=== PATIENT | female | born 1950 | race Caucasian/White ===

== ENCOUNTER 2020-03-28 09:40 | Outpatient (REF) | payer MEDICARE, BC, SELFPAY ==
--- NOTE | 2020-03-28 09:49 | MM_ITS ---
EXAMINATION: MM SCREENING DIGITAL MAMMOGRAPHY, BILATERAL CLINICAL INFORMATION: Screening. Asymptomatic. The lifetime risk of breast cancer based on the Tyrer-Cuzick Model is 5%. COMPARISON: Mammography: 03/23/2019, 01/27/2018 TECHNIQUE: Digital mammography is performed in craniocaudal and mediolateral oblique views along with computer-aided detection (CAD). FINDINGS: There are scattered areas of fibroglandular density (ACR BI-RADS breast composition Category b). There are no significant masses, abnormal calcifications, or other abnormalities. There are bilateral vascular calcifications anterior breasts and upper quadrants. The skin contours are smooth. No significant changes. IMPRESSION: No mammographic evidence of malignancy. ASSESSMENT: BI-RADS 2: Benign RECOMMENDATION: Routine annual mammography screening. This patient's information was entered into a reminder system with a target due date for their next mammogram.
== END 2020-03-28 09:41 | disposition home or self-care (01) ==
LOC: HO.MAMMO 09:40
PROVIDERS: PCP Internal Medicine Medical Oncology; Visit Provider Internal Medicine Medical Oncology
DX: Z12.31 Encounter for screening mammogram for malignant neoplasm of breast (principal)
CPT/HCPCS: 77063; 77067

== ENCOUNTER 2020-06-14 08:47 | Outpatient (REF) | payer MEDICARE, BC, SELFPAY ==
[2020-06-14 09:31] LABS: MANUAL DIFF FLAG NO
[2020-06-14 09:34] LABS: Basophils Absolute Auto 0.1 X10*3/uL (0.0-0.2); Eosinophils Absolute Auto 0.5 X10*3/uL (0.0-0.4); Eosinophils Percent Auto 5.3 % (0-4); Hematocrit 41.5 % (37-47); Hemoglobin 12.7 g/dl (12.0-16.0); Imm Gran Abs Auto 0.13 X10*3/uL (0.00-0.03); Imm Gran Pct Auto 1.4 % (0.0-0.4); Lymphocytes Absolute Auto 2.2 X10*3/uL (1.2-4.9); Mean Corpuscular HGB Conc 30.6 g/dl (31.0-35.0); Mean Corpuscular Hemoglobin 27.1 pg (27.0-33.0); Mean Corpuscular Volume 88.5 fL (80-98); Mean Platelet Volume 9.4 fL (9.4-12.3); Monocytes Absolute Auto 0.7 X10*3/uL (0.1-1.2); Monocytes Percent Auto 7.4 % (2-11); Neutrophils Absolute Auto 5.7 X10*3/uL (2.0-8.3); Neutrophils Percent Auto 60.9 % (45-73); Platelet Count 277 X10*3/uL (160-400); Red Blood Count 4.69 X10*6/uL (4.20-5.50); White Blood Count 9.3 X10*3/uL (4.8-10.8)
[2020-06-14 10:04] LABS: Alanine Aminotransferase 17 U/L (0-31); Albumin Level 4.2 g/dL (3.5-5.0); Alkaline Phosphatase 80 U/L (39-117); Anion Gap 13 (12-20); Aspartate Amino Transferase 20 U/L (5-31); Bilirubin Total 0.4 mg/dL (0.0-1.0); Blood Urea Nitrogen 33 mg/dL (9-16); Calcium 9.3 mg/dL (8.4-10.2); Carbon Dioxide 28 mmol/L (22-29); Chloride 104 mmol/L (96-108); Cholesterol 189 mg/dL; Estimated Glomerular Filt Rate 49; Glucose Fasting 143 mg/dL (60-99); HDL Cholesterol 64 mg/dL; LDL Cholesterol Calculated 104 mg/dl; Potassium 4.7 mmol/l (3.3-5.1); Sodium 140 mmol/L (135-145); Total Protein 7.1 g/dL (6.5-8.0); Triglycerides 109 mg/dL
[2020-06-14 10:24] LABS: Vitamin D 25-OH Total 29.5 ng/mL (>30)
== END 2020-06-14 08:48 | disposition home or self-care (01) ==
LOC: HO.LAB 08:47
PROVIDERS: PCP Internal Medicine Medical Oncology; Visit Provider Internal Medicine Medical Oncology
DX: E11.9 Type 2 diabetes mellitus without complications (principal); E78.2 Mixed hyperlipidemia; E66.9 Obesity, unspecified
CPT/HCPCS: 36415; 80053; 80061; 82306; 85025

== ENCOUNTER 2020-10-12 09:12 | Outpatient (REF) | payer MEDICARE, BC, SELFPAY ==
[2020-10-12 10:21] LABS: MANUAL DIFF FLAG NO
[2020-10-12 10:30] LABS: Basophils Absolute Auto 0.1 X10*3/uL (0.0-0.2); Eosinophils Absolute Auto 0.3 X10*3/uL (0.0-0.4); Eosinophils Percent Auto 2.9 % (0-4); Hematocrit 40.7 % (37-47); Hemoglobin 12.7 g/dl (12.0-16.0); Imm Gran Abs Auto 0.12 X10*3/uL (0.00-0.03); Imm Gran Pct Auto 1.3 % (0.0-0.4); Lymphocytes Percent Auto 22.5 % (20-40); Mean Corpuscular HGB Conc 31.2 g/dl (31.0-35.0); Mean Corpuscular Hemoglobin 27.3 pg (27.0-33.0); Mean Corpuscular Volume 87.3 fL (80-98); Mean Platelet Volume 9.4 fL (9.4-12.3); Monocytes Absolute Auto 0.6 X10*3/uL (0.1-1.2); Neutrophils Absolute Auto 5.9 X10*3/uL (2.0-8.3); Neutrophils Percent Auto 65.3 % (45-73); Platelet Count 280 X10*3/uL (160-400); Red Blood Count 4.66 X10*6/uL (4.20-5.50)
[2020-10-12 10:56] LABS: Alanine Aminotransferase 20 U/L (0-31); Albumin Level 4.2 g/dL (3.5-5.0); Alkaline Phosphatase 81 U/L (39-117); Anion Gap 15 (12-20); Aspartate Amino Transferase 19 U/L (5-31); Bilirubin Total 0.5 mg/dL (0.0-1.0); Blood Urea Nitrogen 32 mg/dL (9-16); Calcium 9.7 mg/dL (8.4-10.2); Carbon Dioxide 28 mmol/L (22-29); Chloride 103 mmol/L (96-108); Cholesterol 180 mg/dL; Estimated Glomerular Filt Rate 46; Glucose Fasting 163 mg/dL (60-99); HDL Cholesterol 61 mg/dL; LDL Cholesterol Calculated 90 mg/dl; Potassium 4.8 mmol/L (3.3-5.1); Sodium 141 mmol/L (135-145); Triglycerides 145 mg/dL
[2020-10-12 10:59] LABS: Estimated Average Glucose 163 mg/dL; Hemoglobin A1c % 7.3 %
[2020-10-12 13:44] LABS: Creatinine Urine 64.74 mg/dL; Microalbum/Creatinine Ratio Ur 44.7 ug/mg cr
== END 2020-10-12 09:13 | disposition home or self-care (01) ==
LOC: HO.LAB 09:12
PROVIDERS: PCP Internal Medicine Medical Oncology; Visit Provider Internal Medicine Medical Oncology
DX: E11.9 Type 2 diabetes mellitus without complications (principal); I10 Essential (primary) hypertension; E78.2 Mixed hyperlipidemia
CPT/HCPCS: 36415; 80053; 80061; 82043; 83036; 85025

== ENCOUNTER → 2020-11-16 12:26 | Outpatient (BNVA) | payer MEDICARE, BC, SELFPAY | PROVIDERS: PCP Internal Medicine Medical Oncology; Visit Provider Obstetrics & Gynecology ==

== ENCOUNTER 2021-01-30 08:32 | Outpatient (REF) | payer MEDICARE, BC, SELFPAY ==
[2021-01-30 09:44] LABS: MANUAL DIFF FLAG NO
[2021-01-30 09:55] LABS: Basophils Absolute Auto 0.1 X10*3/uL (0.0-0.2); Basophils Percent Auto 0.8 % (0-2); Eosinophils Absolute Auto 0.2 X10*3/uL (0.0-0.4); Eosinophils Percent Auto 2.7 % (0-4); Hematocrit 39.5 % (37-47); Hemoglobin 12.3 g/dl (12.0-16.0); Imm Gran Abs Auto 0.13 X10*3/uL (0.00-0.03); Imm Gran Pct Auto 1.5 % (0.0-0.4); Lymphocytes Absolute Auto 2.4 X10*3/uL (1.2-4.9); Lymphocytes Percent Auto 26.8 % (20-40); Mean Corpuscular HGB Conc 31.1 g/dl (31.0-35.0); Mean Corpuscular Hemoglobin 27.7 pg (27.0-33.0); Mean Platelet Volume 9.7 fL (9.4-12.3); Monocytes Absolute Auto 0.8 X10*3/uL (0.1-1.2); Monocytes Percent Auto 8.8 % (2-11); Neutrophils Absolute Auto 5.3 X10*3/uL (2.0-8.3); Neutrophils Percent Auto 59.4 % (45-73); Platelet Count 287 X10*3/uL (160-400); Red Blood Count 4.44 X10*6/uL (4.20-5.50); Red Cell Distribution Width 14.5 % (11.0-16.0); White Blood Count 8.8 X10*3/uL (4.8-10.8)
[2021-01-30 10:03] LABS: Estimated Average Glucose 166 mg/dL; Hemoglobin A1c % 7.4 %
[2021-01-30 10:25] LABS: Alanine Aminotransferase 14 U/L (0-31); Albumin Level 4.2 g/dL (3.5-5.0); Alkaline Phosphatase 67 U/L (39-117); Anion Gap 15 (12-20); Aspartate Amino Transferase 15 U/L (5-31); Bilirubin Total 0.2 mg/dL (0.0-1.0); Blood Urea Nitrogen 42 mg/dL (9-16); Calcium 10.1 mg/dL (8.4-10.2); Carbon Dioxide 23 mmol/L (22-29); Chloride 107 mmol/L (96-108); Cholesterol 162 mg/dL; Estimated Glomerular Filt Rate 31; Glucose Random 154 mg/dL (60-115); HDL Cholesterol 59 mg/dL; LDL Cholesterol Calculated 75 mg/dl; Sodium 139 mmol/L (135-145); Triglycerides 143 mg/dL
== END 2021-01-30 08:33 | disposition home or self-care (01) ==
LOC: HO.LAB 08:32
PROVIDERS: PCP Internal Medicine Medical Oncology; Visit Provider Internal Medicine Medical Oncology
DX: I10 Essential (primary) hypertension (principal); E66.9 Obesity, unspecified; E78.2 Mixed hyperlipidemia; E11.9 Type 2 diabetes mellitus without complications
CPT/HCPCS: 36415; 80053; 80061; 83036; 85025

== ENCOUNTER 2021-02-03 08:49 | Outpatient (REF) | payer MEDICARE, BC, SELFPAY ==
[2021-02-03 10:44] LABS: Anion Gap 17 (12-20); Carbon Dioxide 21 mmol/L (22-29); Chloride 105 mmol/L (96-108); Potassium 5.3 mmol/L (3.3-5.1); Sodium 138 mmol/L (135-145)
[2021-02-03 12:11] LABS: SARS COV2 IgG Negative (Negative)
== END 2021-02-03 08:50 | disposition home or self-care (01) ==
LOC: HO.LAB 08:49
PROVIDERS: PCP Internal Medicine Medical Oncology; Visit Provider Internal Medicine Medical Oncology
DX: U07.1 COVID-19 (principal); E87.5 Hyperkalemia
CPT/HCPCS: 36415; 80051; 86769

== ENCOUNTER 2021-06-05 09:58 | Outpatient (REF) | payer MEDICARE, BC, SELFPAY ==
[2021-06-05 10:14] LABS: MANUAL DIFF FLAG NO
[2021-06-05 10:37] LABS: Basophils Absolute Auto 0.1 X10*3/uL (0.0-0.2); Basophils Percent Auto 0.7 % (0-2); Eosinophils Absolute Auto 0.2 X10*3/uL (0.0-0.4); Eosinophils Percent Auto 2.2 % (0-4); Hematocrit 42.4 % (37.0-47.0); Hemoglobin 13.1 g/dl (12.0-16.0); Imm Gran Pct Auto 1.1 % (0.0-0.4); Lymphocytes Absolute Auto 2.3 X10*3/uL (1.2-4.9); Lymphocytes Percent Auto 24.6 % (20-40); Mean Corpuscular HGB Conc 30.9 g/dl (31.0-35.0); Mean Corpuscular Hemoglobin 26.8 pg (27.0-33.0); Mean Corpuscular Volume 86.9 fL (80.0-98.0); Mean Platelet Volume 9.6 fL (9.4-12.3); Monocytes Absolute Auto 0.6 X10*3/uL (0.1-1.2); Monocytes Percent Auto 6.3 % (2-11); Neutrophils Absolute Auto 6.1 x10*3/uL (2.0-8.3); Neutrophils Percent Auto 65.1 % (45-73); Platelet Count 306 X10*3/uL (160-400); Red Blood Count 4.88 X10*6/uL (4.20-5.50); Red Cell Distribution Width 14.5 % (11.0-16.0); White Blood Count 9.4 X10*3/uL (4.8-10.8)
[2021-06-05 10:45] LABS: Estimated Average Glucose 220 mg/dL; Hemoglobin A1c % 9.3 %
[2021-06-05 11:11] LABS: Alanine Aminotransferase 18 U/L (0-31); Albumin Level 4.2 g/dL (3.5-5.0); Alkaline Phosphatase 88 U/L (39-117); Anion Gap 14 (12-20); Aspartate Amino Transferase 17 U/L (5-31); Bilirubin Total 0.3 mg/dL (0.0-1.0); Blood Urea Nitrogen 39 mg/dL (9-16); Carbon Dioxide 27 mmol/L (22-29); Chloride 104 mmol/L (96-108); Cholesterol 200 mg/dL; Estimated Glomerular Filt Rate 41; Glucose Fasting 191 mg/dL (60-99); HDL Cholesterol 53 mg/dL; LDL Cholesterol Calculated 108 mg/dl; Potassium 4.7 mmol/L (3.3-5.1); Sodium 140 mmol/L (135-145); Total Protein 7.1 g/dL (6.5-8.0); Triglycerides 198 mg/dL
[2021-06-05 13:31] LABS: Creatinine Urine 104.71 mg/dL; Microalbum/Creatinine Ratio Ur 32.4 ug/mg cr
== END 2021-06-05 09:59 | disposition home or self-care (01) ==
LOC: HO.LAB 09:58
PROVIDERS: PCP Internal Medicine Medical Oncology; Visit Provider Internal Medicine Medical Oncology
DX: E11.9 Type 2 diabetes mellitus without complications (principal); E78.2 Mixed hyperlipidemia; E66.9 Obesity, unspecified
CPT/HCPCS: 36415; 80053; 80061; 82043; 83036; 85025

== ENCOUNTER 2021-09-04 09:28 | Outpatient (REF) | payer MEDICARE, BC, SELFPAY ==
[2021-09-04 10:06] LABS: MANUAL DIFF FLAG NO
[2021-09-04 10:47] LABS: Basophils Absolute Auto 0.1 X10*3/uL (0.0-0.2); Basophils Percent Auto 1.1 % (0-2); Eosinophils Absolute Auto 0.2 X10*3/uL (0.0-0.4); Hematocrit 41.2 % (37.0-47.0); Hemoglobin 12.4 g/dl (12.0-16.0); Imm Gran Abs Auto 0.12 X10*3/uL (0.00-0.03); Imm Gran Pct Auto 1.2 % (0.0-0.4); Lymphocytes Absolute Auto 2.2 X10*3/uL (1.2-4.9); Lymphocytes Percent Auto 22.3 % (20-40); Mean Corpuscular HGB Conc 30.1 g/dl (31.0-35.0); Mean Corpuscular Hemoglobin 26.8 pg (27.0-33.0); Mean Corpuscular Volume 89.2 fL (80.0-98.0); Mean Platelet Volume 9.7 fL (9.4-12.3); Monocytes Absolute Auto 0.7 X10*3/uL (0.1-1.2); Monocytes Percent Auto 6.9 % (2-11); Neutrophils Absolute Auto 6.5 x10*3/uL (2.0-8.3); Neutrophils Percent Auto 66.5 % (45-73); Platelet Count 303 X10*3/uL (160-400); Red Blood Count 4.62 X10*6/uL (4.20-5.50); White Blood Count 9.8 X10*3/uL (4.8-10.8)
[2021-09-04 10:54] LABS: Creatinine Urine 104.96 mg/dL
[2021-09-04 10:56] LABS: Alanine Aminotransferase 16 U/L (0-31); Albumin Level 4.1 g/dL (3.5-5.0); Alkaline Phosphatase 86 U/L (39-117); Anion Gap 17 (12-20); Aspartate Amino Transferase 18 U/L (5-31); Bilirubin Total 0.2 mg/dL (0.0-1.0); Blood Urea Nitrogen 33 mg/dL (9-16); Carbon Dioxide 25 mmol/L (22-29); Chloride 106 mmol/L (96-108); Cholesterol 179 mg/dL; Estimated Glomerular Filt Rate 38; Glucose Fasting 186 mg/dL (60-99); HDL Cholesterol 52 mg/dL; LDL Cholesterol Calculated 88 mg/dl; Potassium 5.6 mmol/L (3.3-5.1); Sodium 142 mmol/L (135-145); Total Protein 7.3 g/dL (6.5-8.0); Triglycerides 197 mg/dL
[2021-09-04 10:58] LABS: Estimated Average Glucose 177 mg/dL; Hemoglobin A1c % 7.8 %
== END 2021-09-04 09:29 | disposition home or self-care (01) ==
LOC: HO.LAB 09:28
PROVIDERS: PCP Internal Medicine Medical Oncology; Visit Provider Internal Medicine Medical Oncology
DX: E11.9 Type 2 diabetes mellitus without complications (principal); I10 Essential (primary) hypertension; E78.2 Mixed hyperlipidemia; E66.9 Obesity, unspecified
CPT/HCPCS: 36415; 80053; 80061; 82043; 83036; 85025

== ENCOUNTER 2021-12-27 09:20 | Outpatient (REF) | payer MEDICARE, BC, SELFPAY | END 2021-12-27 09:21 | disposition home or self-care (01) | LOC: HO.LAB 09:20 | PROVIDERS: PCP Internal Medicine Medical Oncology; Visit Provider Obstetrics & Gynecology | DX: N84.1 Polyp of cervix uteri (principal); Z78.0 Asymptomatic menopausal state | CPT/HCPCS: 57500; 88305 ==

== ENCOUNTER 2022-01-01 08:03 | Outpatient (REF) | payer MEDICARE, BC, SELFPAY ==
[2022-01-01 08:39] LABS: MANUAL DIFF FLAG NO
[2022-01-01 09:05] LABS: Basophils Absolute Auto 0.1 X10*3/uL (0.0-0.2); Basophils Percent Auto 1.1 % (0-2); Eosinophils Absolute Auto 0.2 X10*3/uL (0.0-0.4); Hematocrit 40.1 % (37.0-47.0); Hemoglobin 12.4 g/dl (12.0-16.0); Imm Gran Abs Auto 0.09 X10*3/uL (0.00-0.03); Imm Gran Pct Auto 1.1 % (0.0-0.4); Lymphocytes Percent Auto 24.8 % (20-40); Mean Corpuscular HGB Conc 30.9 g/dl (31.0-35.0); Mean Corpuscular Hemoglobin 27.5 pg (27.0-33.0); Mean Corpuscular Volume 88.9 fL (80.0-98.0); Mean Platelet Volume 9.7 fL (9.4-12.3); Monocytes Absolute Auto 0.6 X10*3/uL (0.1-1.2); Monocytes Percent Auto 7.5 % (2-11); Neutrophils Percent Auto 62.5 % (45-73); Platelet Count 294 X10*3/uL (160-400); Red Blood Count 4.51 X10*6/uL (4.20-5.50)
[2022-01-01 09:45] LABS: Alanine Aminotransferase 16 U/L (0-31); Albumin Level 4.5 g/dL (3.5-5.0); Alkaline Phosphatase 68 U/L (39-117); Anion Gap 12 (12-20); Aspartate Amino Transferase 16 U/L (5-31); Bilirubin Total 0.3 mg/dL (0.0-1.0); Blood Urea Nitrogen 51 mg/dL (9-16); Calcium 9.6 mg/dL (8.4-10.2); Carbon Dioxide 24 mmol/L (22-29); Chloride 108 mmol/L (96-108); Cholesterol 174 mg/dL; Estimated Glomerular Filt Rate 33; Glucose Fasting 154 mg/dL (60-99); HDL Cholesterol 50 mg/dL; LDL Cholesterol Calculated 91 mg/dl; Potassium 5.4 mmol/L (3.3-5.1); Sodium 139 mmol/L (135-145); Total Protein 7.2 g/dL (6.5-8.0); Triglycerides 168 mg/dL
[2022-01-01 10:01] LABS: Creatinine Urine 56.71 mg/dL
[2022-01-01 10:54] LABS: Estimated Average Glucose 160 mg/dL; Hemoglobin A1c % 7.2 %
== END 2022-01-01 08:04 | disposition home or self-care (01) ==
LOC: HO.LAB 08:03
PROVIDERS: PCP Internal Medicine Medical Oncology; Visit Provider Internal Medicine Medical Oncology
DX: E11.9 Type 2 diabetes mellitus without complications (principal); E78.2 Mixed hyperlipidemia; I10 Essential (primary) hypertension
CPT/HCPCS: 36415; 80053; 80061; 82043; 83036; 85025

== ENCOUNTER 2022-01-11 10:14 | Outpatient (REF) | payer MEDICARE, BC, SELFPAY ==
[2022-01-11 11:42] LABS: Anion Gap 14 (12-20); Blood Urea Nitrogen 46 mg/dL (9-16); Carbon Dioxide 22 mmol/L (22-29); Chloride 108 mmol/L (96-108); Potassium 6.2 mmol/L (3.3-5.1); Sodium 138 mmol/L (135-145)
== END 2022-01-11 10:15 | disposition home or self-care (01) ==
LOC: HO.LAB 10:14
PROVIDERS: PCP Internal Medicine Medical Oncology; Visit Provider Internal Medicine Medical Oncology
DX: E11.9 Type 2 diabetes mellitus without complications (principal); E78.2 Mixed hyperlipidemia; E66.9 Obesity, unspecified
CPT/HCPCS: 36415; 80051; 84520

== ENCOUNTER 2022-01-15 11:26 | Outpatient (REF) | payer MEDICARE, BC, SELFPAY ==
[2022-01-15 12:28] LABS: Anion Gap 15 (12-20); Carbon Dioxide 25 mmol/L (22-29); Chloride 104 mmol/L (96-108); Potassium 5.1 mmol/L (3.3-5.1); Sodium 139 mmol/L (135-145)
== END 2022-01-15 11:27 | disposition home or self-care (01) ==
LOC: HO.LAB 11:26
PROVIDERS: PCP Internal Medicine Medical Oncology; Visit Provider Internal Medicine Medical Oncology
DX: E87.5 Hyperkalemia (principal)
CPT/HCPCS: 36415; 80051

== ENCOUNTER 2022-01-31 10:14 | Outpatient (REF) | payer MEDICARE, BC, SELFPAY ==
--- NOTE | ~2022-01-31 | MM_ITS ---
EXAMINATION: BONE DENSITOMETRY CLINICAL INDICATION: Asymptomatic menopausal state. COMPARISON: Previous BD dated 08/27/2019 and baseline BD dated 11/09/2008. TECHNIQUE: Using a [employer]ight DXA System (software version: 13.1) manufactured by [employer], dual-energy x-ray absorptiometry was performed of the lumbar spine and left hip. The images are of good technical quality. Summary results are attached. FINDINGS: AP SPINE L1-L4: There are multilevel degenerative changes lumbar spine which may cause overestimation of the lumbar bone mineral density. Current: BMD 1.511 g/cm2, Z-score 3.6, T-score 2.8, normal, 7.8% increase from previous, 10.1% increase from baseline (<5% change is not significant). Prior: BMD 1.402 g/cm2. Baseline: BMD 1.372 g/cm2. LEFT FEMUR, NECK: Current: BMD 0.796 g/cm2, Z-score -0.5, T-score -1.7, osteopenia. Prior: BMD 0.800 g/cm2. Baseline: BMD 0.913 g/cm2. LEFT FEMUR, TOTAL: Current: BMD 0.911 g/cm2, Z-score 0.2, T-score -0.8, normal, 4.0% increase from previous, 12.2% decrease from baseline (<5% change is not significant). Prior: BMD 0.876 g/cm2. Baseline: BMD 1.038 g/cm2. IDENTIFIED RISK FACTORS: Menopause, family history (parental hip fracture), height loss, history of fracture (adult). HISTORY OF FRACTURE: Other. MEDICATIONS: Calcium supplements or multivitamin, vitamin D, bisphosphonate. MM/XR DEXA axial skeleton IMPRESSION: 1. DIAGNOSIS: Osteopenia based on the lowest T-score value of -1.7 in the femoral neck applying World Health Organization criteria. 2. 10-YEAR FRACTURE RISK PREDICTION, FRAX: Major osteoporotic fracture (clinical spine, forearm, hip or shoulder) 25.4%. Hip fracture 10.3%. 3. Treatment Recommendations: NOF guidelines recommend consideration for treatment in postmenopausal women and men age 50 and older presenting with the following: -A hip or vertebral (clinical or morphometric) fracture. -T-score less than or equal to -2.5 at the femoral neck or spine after appropriate evaluation to exclude secondary causes. -Low bone mass at the hip or spine and a 10-year fracture probability by FRAX of greater than or equal to 3% for hip fracture or greater than or equal to 20% for major osteoporotic fracture based on the [place] adapted WHO algorithm. 4. Other Recommendations: All treatment decisions require clinical judgment and consideration of individual patient factors, including patient preferences, comorbidities, previous drug use, risk factors not captured in the FRAX model (e.g. frailty, falls, vitamin D deficiency, increased bone turnover, interval significant decline in bone density) and possible under or overestimation of fracture risk by FRAX. Additional medical evaluation for secondary cause of low bone mineral density may be appropriate. FUTURE SCAN RECOMMENDATION: People with diagnosed cases of osteoporosis or at high risk for fracture should have regular bone mineral density tests. For patients eligible for Medicare, routine testing is allowed once every 2 years. The testing frequency can be increased to one year for patients who have rapidly progressing disease, those who are receiving or discontinuing medical therapy to restore bone mass, or have additional risk factors.
--- NOTE | ~2022-01-31 | MM_ITS ---
EXAMINATION: MM SCREENING DIGITAL BREAST TOMOSYNTHESIS, BILATERAL CLINICAL INFORMATION: Screening. Asymptomatic. The lifetime risk of breast cancer based on the Tyrer-Cuzick Model is 5%. COMPARISON: Mammography: 03/28/2020, 03/23/2019, 01/27/2018 TECHNIQUE: Digital breast tomosynthesis is performed in both the craniocaudal and mediolateral oblique views along with computer-aided detection (CAD). Synthesized 2D images are generated from the tomosynthesis. FINDINGS: There are scattered areas of fibroglandular density (ACR BI-RADS breast composition Category b). There are no significant masses, abnormal calcifications, or other abnormalities. Parenchymal pattern is similar to prior studies. The axilla and skin contours are unremarkable. MM/MM tomosynthesis screening BI IMPRESSION: No mammographic evidence of malignancy. ASSESSMENT: BI-RADS 1: Negative RECOMMENDATION: Routine annual mammography screening. This patient's information was entered into a reminder system with a target due date for their next mammogram.
== END 2022-01-31 10:15 | disposition home or self-care (01) ==
LOC: HO.MAMMO 10:14
PROVIDERS: PCP Internal Medicine Medical Oncology; Visit Provider Obstetrics & Gynecology
DX: Z12.31 Encounter for screening mammogram for malignant neoplasm of breast (principal); Z13.820 Encounter for screening for osteoporosis; Z78.0 Asymptomatic menopausal state
CPT/HCPCS: 77063; 77067; 77080

== ENCOUNTER → 2022-02-14 11:12 | Outpatient (BNVA) | payer MEDICARE, BC, SELFPAY | PROVIDERS: PCP Internal Medicine Medical Oncology; Visit Provider Obstetrics & Gynecology | DX: M81.0 Age-related osteoporosis without current pathological fracture (principal) | CPT/HCPCS: 99212 ==

== ENCOUNTER 2022-04-05 11:40 | Outpatient (REF) | payer MEDICARE, BC, SELFPAY ==
[2022-04-05 12:08] LABS: MANUAL DIFF FLAG NO
[2022-04-05 12:49] LABS: Basophils Absolute Auto 0.1 X10*3/uL (0.0-0.2); Basophils Percent Auto 0.8 % (0-2); Eosinophils Absolute Auto 0.2 X10*3/uL (0.0-0.4); Eosinophils Percent Auto 1.5 % (0-4); Hematocrit 39.7 % (37.0-47.0); Hemoglobin 12.4 g/dl (12.0-16.0); Imm Gran Abs Auto 0.11 X10*3/uL (0.00-0.03); Lymphocytes Absolute Auto 2.3 X10*3/uL (1.2-4.9); Lymphocytes Percent Auto 20.8 % (20-40); Mean Corpuscular HGB Conc 31.2 g/dl (31.0-35.0); Mean Corpuscular Hemoglobin 27.4 pg (27.0-33.0); Mean Corpuscular Volume 87.8 fL (80.0-98.0); Mean Platelet Volume 9.7 fL (9.4-12.3); Monocytes Absolute Auto 0.7 X10*3/uL (0.1-1.2); Monocytes Percent Auto 5.9 % (2-11); Neutrophils Absolute Auto 7.7 x10*3/uL (2.0-8.3); Platelet Count 300 X10*3/uL (160-400); Red Blood Count 4.52 X10*6/uL (4.20-5.50); Red Cell Distribution Width 13.2 % (11.0-16.0)
[2022-04-05 13:30] LABS: Alanine Aminotransferase 17 U/L (0-31); Albumin Level 4.5 g/dL (3.5-5.0); Alkaline Phosphatase 79 U/L (39-117); Anion Gap 21 (12-20); Aspartate Amino Transferase 22 U/L (5-31); Bilirubin Total 0.4 mg/dL (0.0-1.0); Blood Urea Nitrogen 32 mg/dL (9-16); Calcium 9.9 mg/dL (8.4-10.2); Carbon Dioxide 24 mmol/L (22-29); Chloride 101 mmol/L (96-108); Cholesterol 186 mg/dL; Estimated Glomerular Filt Rate 37; Glucose Fasting 143 mg/dL (60-99); HDL Cholesterol 63 mg/dL; LDL Cholesterol Calculated 98 mg/dl; Sodium 141 mmol/L (135-145); Total Protein 7.3 g/dL (6.5-8.0); Triglycerides 127 mg/dL
== END 2022-04-05 11:41 | disposition home or self-care (01) ==
LOC: HO.LAB 11:40
PROVIDERS: PCP Internal Medicine Medical Oncology; Visit Provider Internal Medicine Medical Oncology
DX: E11.9 Type 2 diabetes mellitus without complications (principal); E78.2 Mixed hyperlipidemia; E66.9 Obesity, unspecified
CPT/HCPCS: 36415; 80053; 80061; 85025

== ENCOUNTER 2022-04-13 09:11 | Outpatient (REF) | payer MEDICARE, BC, SELFPAY ==
[2022-04-13 10:13] LABS: Estimated Average Glucose 169 mg/dL; Hemoglobin A1c % 7.5 %
[2022-04-13 10:15] LABS: Creatinine Urine 78.45 mg/dL; Microalbum/Creatinine Ratio Ur 57.3 ug/mg cr
[2022-04-13 10:23] LABS: Alanine Aminotransferase 18 U/L (0-31); Albumin Level 4.4 g/dL (3.5-5.0); Alkaline Phosphatase 84 U/L (39-117); Anion Gap 17 (12-20); Aspartate Amino Transferase 22 U/L (5-31); Bilirubin Total 0.5 mg/dL (0.0-1.0); Blood Urea Nitrogen 32 mg/dL (9-16); Calcium 10.5 mg/dL (8.4-10.2); Carbon Dioxide 28 mmol/L (22-29); Chloride 102 mmol/L (96-108); Cholesterol 202 mg/dL; Estimated Glomerular Filt Rate 41; Glucose Fasting 171 mg/dL (60-99); HDL Cholesterol 58 mg/dL; LDL Cholesterol Calculated 103 mg/dl; Sodium 142 mmol/L (135-145); Total Protein 7.5 g/dL (6.5-8.0); Triglycerides 205 mg/dL
== END 2022-04-13 09:12 | disposition home or self-care (01) ==
LOC: HO.LAB 09:11
PROVIDERS: PCP Internal Medicine Medical Oncology; Visit Provider Internal Medicine Medical Oncology
DX: E11.9 Type 2 diabetes mellitus without complications (principal); I10 Essential (primary) hypertension; E78.2 Mixed hyperlipidemia; J45.909 Unspecified asthma, uncomplicated
CPT/HCPCS: 36415; 80053; 80061; 82043; 83036

== ENCOUNTER 2022-08-08 09:04 | Outpatient (REF) | payer MEDICARE, BC, SELFPAY ==
[2022-08-08 09:22] LABS: MANUAL DIFF FLAG NO
[2022-08-08 09:35] LABS: Basophils Absolute Auto 0.1 X10*3/uL (0.0-0.2); Basophils Percent Auto 1.2 % (0-2); Eosinophils Absolute Auto 0.3 X10*3/uL (0.0-0.4); Eosinophils Percent Auto 2.7 % (0-4); Hematocrit 41.1 % (37.0-47.0); Hemoglobin 12.8 g/dl (12.0-16.0); Imm Gran Abs Auto 0.14 X10*3/uL (0.00-0.03); Imm Gran Pct Auto 1.5 % (0.0-0.4); Lymphocytes Absolute Auto 2.5 X10*3/uL (1.2-4.9); Lymphocytes Percent Auto 26.1 % (20-40); Mean Corpuscular HGB Conc 31.1 g/dl (31.0-35.0); Mean Corpuscular Hemoglobin 27.2 pg (27.0-33.0); Mean Corpuscular Volume 87.4 fL (80.0-98.0); Mean Platelet Volume 9.5 fL (9.4-12.3); Monocytes Absolute Auto 0.7 X10*3/uL (0.1-1.2); Monocytes Percent Auto 6.7 % (2-11); Neutrophils Percent Auto 61.8 % (45-73); Platelet Count 325 X10*3/uL (160-400); Red Cell Distribution Width 13.8 % (11.0-16.0); White Blood Count 9.6 X10*3/uL (4.8-10.8)
[2022-08-08 09:40] LABS: Estimated Average Glucose 206 mg/dL; Hemoglobin A1c % 8.8 %
[2022-08-08 10:06] LABS: Alanine Aminotransferase 21 U/L (0-31); Albumin Level 4.1 g/dL (3.5-5.0); Anion Gap 15 (12-20); Aspartate Amino Transferase 22 U/L (5-31); Bilirubin Total 0.4 mg/dL (0.0-1.0); Blood Urea Nitrogen 30 mg/dL (9-16); Calcium 9.4 mg/dL (8.4-10.2); Carbon Dioxide 28 mmol/L (22-29); Chloride 104 mmol/L (96-108); Estimated Glomerular Filt Rate 47; Glucose Fasting 192 mg/dL (60-99); Potassium 4.8 mmol/L (3.3-5.1); Sodium 142 mmol/L (135-145); Total Protein 6.8 g/dL (6.5-8.0); Triglycerides 159 mg/dL
[2022-08-08 10:07] LABS: Alkaline Phosphatase 93 U/L (39-117); Cholesterol 196 mg/dL; HDL Cholesterol 58 mg/dL; LDL Cholesterol Calculated 107 mg/dl
[2022-08-08 10:35] LABS: Creatinine Urine 94.33 mg/dL; Microalbum/Creatinine Ratio Ur 63.6 ug/mg cr
== END 2022-08-08 09:05 | disposition home or self-care (01) ==
LOC: HO.LAB 09:04
PROVIDERS: PCP Internal Medicine Medical Oncology; Visit Provider Internal Medicine Medical Oncology
DX: E11.9 Type 2 diabetes mellitus without complications (principal); I10 Essential (primary) hypertension; E78.2 Mixed hyperlipidemia; J45.909 Unspecified asthma, uncomplicated
CPT/HCPCS: 36415; 80053; 80061; 82043; 83036; 85025

== ENCOUNTER 2022-12-12 08:56 | Outpatient (REF) | payer MEDICARE, BC, SELFPAY ==
[2022-12-12 09:11] LABS: MANUAL DIFF FLAG NO
[2022-12-12 10:10] LABS: Basophils Absolute Auto 0.1 X10*3/uL (0.0-0.2); Basophils Percent Auto 1.1 % (0-2); Eosinophils Absolute Auto 0.3 X10*3/uL (0.0-0.4); Eosinophils Percent Auto 3.4 % (0-4); Hematocrit 43.8 % (37.0-47.0); Hemoglobin 13.7 g/dl (12.0-16.0); Imm Gran Abs Auto 0.11 X10*3/uL (0.00-0.03); Imm Gran Pct Auto 1.3 % (0.0-0.4); Lymphocytes Absolute Auto 2.1 X10*3/uL (1.2-4.9); Lymphocytes Percent Auto 26.3 % (20-40); Mean Corpuscular HGB Conc 31.3 g/dl (31.0-35.0); Mean Corpuscular Hemoglobin 27.3 pg (27.0-33.0); Mean Corpuscular Volume 87.4 fL (80.0-98.0); Mean Platelet Volume 9.5 fL (9.4-12.3); Monocytes Absolute Auto 0.6 X10*3/uL (0.1-1.2); Monocytes Percent Auto 7.5 % (2-11); Neutrophils Absolute Auto 4.9 x10*3/uL (2.0-8.3); Neutrophils Percent Auto 60.4 % (45-73); Platelet Count 298 X10*3/uL (160-400); Red Blood Count 5.01 X10*6/uL (4.20-5.50); White Blood Count 8.2 X10*3/uL (4.8-10.8)
[2022-12-12 11:38] LABS: Alanine Aminotransferase 19 U/L (0-31); Albumin Level 4.2 g/dL (3.5-5.0); Alkaline Phosphatase 74 U/L (39-117); Anion Gap 16 (12-20); Aspartate Amino Transferase 20 U/L (5-31); Bilirubin Total 0.5 mg/dL (0.0-1.0); Blood Urea Nitrogen 43 mg/dL (9-16); Carbon Dioxide 25 mmol/L (22-29); Chloride 105 mmol/L (96-108); Cholesterol 176 mg/dL; Estimated Glomerular Filt Rate 37; Glucose Fasting 156 mg/dL (60-99); HDL Cholesterol 61 mg/dL; LDL Cholesterol Calculated 89 mg/dl; Potassium 5.3 mmol/L (3.3-5.1); Sodium 141 mmol/L (135-145); Total Protein 7.5 g/dL (6.5-8.0); Triglycerides 132 mg/dL
== END 2022-12-12 08:57 | disposition home or self-care (01) ==
LOC: HO.LAB 08:56
PROVIDERS: PCP Internal Medicine Medical Oncology; Visit Provider Internal Medicine Medical Oncology
DX: I10 Essential (primary) hypertension (principal); E78.2 Mixed hyperlipidemia; E66.9 Obesity, unspecified
CPT/HCPCS: 36415; 80053; 80061; 85025

== ENCOUNTER 2023-02-14 12:01 | Outpatient (REF) | payer MEDICARE, BC, SELFPAY | END 2023-02-14 12:02 | disposition home or self-care (01) | LOC: HO.MAMMO 12:01 | PROVIDERS: PCP Internal Medicine Medical Oncology; Visit Provider Internal Medicine Medical Oncology | DX: Z12.31 Encounter for screening mammogram for malignant neoplasm of breast (principal) | CPT/HCPCS: 77063; 77067 ==

== ENCOUNTER → 2023-02-14 12:15 | Outpatient (BNV) | payer MEDICARE, BC, SELFPAY | PROVIDERS: PCP Internal Medicine Medical Oncology; Visit Provider Radiology Diagnostic Radiology | DX: Z12.31 Encounter for screening mammogram for malignant neoplasm of breast (principal) | CPT/HCPCS: 77063; 77067 ==

== ENCOUNTER 2023-04-17 09:12 | Outpatient (REF) | payer MEDICARE, BC, SELFPAY ==
[2023-04-17 09:46] LABS: MANUAL DIFF FLAG NO
[2023-04-17 10:17] LABS: Basophils Absolute Auto 0.1 X10*3/uL (0.0-0.2); Eosinophils Absolute Auto 0.3 X10*3/uL (0.0-0.4); Eosinophils Percent Auto 2.4 % (0-4); Hematocrit 43.5 % (37.0-47.0); Hemoglobin 13.3 g/dl (12.0-16.0); Imm Gran Abs Auto 0.17 X10*3/uL (0.00-0.03); Imm Gran Pct Auto 1.2 % (0.0-0.4); Lymphocytes Absolute Auto 2.4 X10*3/uL (1.2-4.9); Lymphocytes Percent Auto 17.8 % (20-40); Mean Corpuscular HGB Conc 30.6 g/dl (31.0-35.0); Mean Corpuscular Hemoglobin 27.1 pg (27.0-33.0); Mean Corpuscular Volume 88.8 fL (80.0-98.0); Mean Platelet Volume 9.3 fL (9.4-12.3); Monocytes Percent Auto 7.2 % (2-11); Neutrophils Absolute Auto 9.6 x10*3/uL (2.0-8.3); Neutrophils Percent Auto 70.4 % (45-73); Platelet Count 296 X10*3/uL (160-400); Red Cell Distribution Width 13.3 % (11.0-16.0); White Blood Count 13.7 X10*3/uL (4.8-10.8)
[2023-04-17 10:21] LABS: Estimated Average Glucose 171 mg/dL; Hemoglobin A1c % 7.6 % (<6.0)
[2023-04-17 10:46] LABS: Alanine Aminotransferase 24 U/L (0-31); Albumin Level 4.3 g/dL (3.5-5.0); Alkaline Phosphatase 89 U/L (39-117); Anion Gap 17 (12-20); Aspartate Amino Transferase 25 U/L (5-31); Bilirubin Total 0.4 mg/dL (0.0-1.0); Blood Urea Nitrogen 22 mg/dL (9-16); Carbon Dioxide 29 mmol/L (22-29); Chloride 101 mmol/L (96-108); Cholesterol 167 mg/dL (<200); Estimated Glomerular Filt Rate 50; Glucose Fasting 205 mg/dL (60-99); HDL Cholesterol 57 mg/dL (>40); LDL Cholesterol Calculated 75 mg/dL (<100); Potassium 4.6 mmol/L (3.3-5.1); Sodium 142 mmol/L (135-145); Total Protein 7.7 g/dL (6.5-8.0); Triglycerides 176 mg/dL (<150)
[2023-04-17 11:15] LABS: Creatinine Urine 106.96 mg/dL; Microalbum/Creatinine Ratio Ur 90.6 ug/mg cr (<30)
== END 2023-04-17 09:13 | disposition home or self-care (01) ==
LOC: HO.LAB 09:12
PROVIDERS: PCP Internal Medicine Medical Oncology; Visit Provider Internal Medicine Medical Oncology
DX: E11.9 Type 2 diabetes mellitus without complications (principal); I10 Essential (primary) hypertension; E78.2 Mixed hyperlipidemia; E66.9 Obesity, unspecified
CPT/HCPCS: 36415; 80053; 80061; 82043; 82570; 83036; 85025

== ENCOUNTER 2023-08-14 09:21 | Outpatient (REF) | payer MEDICARE, BC, SELFPAY ==
[2023-08-14 09:41] LABS: MANUAL DIFF FLAG NO
[2023-08-14 09:51] LABS: Basophils Absolute Auto 0.1 X10*3/uL (0.0-0.2); Basophils Percent Auto 1.1 % (0-2); Eosinophils Absolute Auto 0.2 X10*3/uL (0.0-0.4); Eosinophils Percent Auto 2.4 % (0-4); Hematocrit 41.8 % (37.0-47.0); Hemoglobin 13.2 g/dl (12.0-16.0); Imm Gran Abs Auto 0.15 X10*3/uL (0.00-0.03); Imm Gran Pct Auto 1.6 % (0.0-0.4); Lymphocytes Absolute Auto 2.3 X10*3/uL (1.2-4.9); Lymphocytes Percent Auto 24.7 % (20-40); Mean Corpuscular HGB Conc 31.6 g/dl (31.0-35.0); Mean Corpuscular Volume 85.7 fL (80.0-98.0); Monocytes Absolute Auto 0.7 X10*3/uL (0.1-1.2); Monocytes Percent Auto 7.3 % (2-11); Neutrophils Absolute Auto 5.7 x10*3/uL (2.0-8.3); Neutrophils Percent Auto 62.9 % (45-73); Platelet Count 298 X10*3/uL (160-400); Red Blood Count 4.88 X10*6/uL (4.20-5.50); Red Cell Distribution Width 13.9 % (11.0-16.0); White Blood Count 9.1 X10*3/uL (4.8-10.8)
[2023-08-14 10:07] LABS: Estimated Average Glucose 209 mg/dL; Hemoglobin A1c % 8.9 % (<6.0)
[2023-08-14 10:23] LABS: Alanine Aminotransferase 18 U/L (0-31); Albumin Level 4.1 g/dL (3.5-5.0); Alkaline Phosphatase 89 U/L (39-117); Anion Gap 15 (12-20); Aspartate Amino Transferase 18 U/L (5-31); Bilirubin Total 0.3 mg/dL (0.0-1.0); Blood Urea Nitrogen 32 mg/dL (9-16); Calcium 9.6 mg/dL (8.4-10.2); Carbon Dioxide 27 mmol/L (22-29); Chloride 105 mmol/L (96-108); Cholesterol 187 mg/dL (<200); Estimated Glomerular Filt Rate 40; Glucose Fasting 207 mg/dL (60-99); HDL Cholesterol 65 mg/dL (>40); LDL Cholesterol Calculated 101 mg/dL (<100); Potassium 5.1 mmol/L (3.3-5.1); Sodium 142 mmol/L (135-145); Total Protein 7.6 g/dL (6.5-8.0); Triglycerides 108 mg/dL (<150)
== END 2023-08-14 09:22 | disposition home or self-care (01) ==
LOC: HO.LAB 09:21
PROVIDERS: PCP Internal Medicine Medical Oncology; Visit Provider Internal Medicine Medical Oncology
DX: E11.9 Type 2 diabetes mellitus without complications (principal); I10 Essential (primary) hypertension; E78.2 Mixed hyperlipidemia; E66.9 Obesity, unspecified
CPT/HCPCS: 36415; 80053; 80061; 83036; 85025

== ENCOUNTER 2023-12-12 09:10 | Outpatient (REF) | payer MEDICARE, BC, SELFPAY ==
[2023-12-12 09:30] LABS: MANUAL DIFF FLAG NO
[2023-12-12 09:54] LABS: Basophils Absolute Auto 0.1 X10*3/uL (0.0-0.2); Basophils Percent Auto 0.8 % (0-2); Eosinophils Absolute Auto 0.2 X10*3/uL (0.0-0.4); Eosinophils Percent Auto 2.4 % (0-4); Hematocrit 40.1 % (37.0-47.0); Hemoglobin 12.9 g/dl (12.0-16.0); Imm Gran Abs Auto 0.12 X10*3/uL (0.00-0.03); Imm Gran Pct Auto 1.3 % (0.0-0.4); Lymphocytes Absolute Auto 1.9 X10*3/uL (1.2-4.9); Lymphocytes Percent Auto 20.4 % (20-40); Mean Corpuscular HGB Conc 32.2 g/dl (31.0-35.0); Mean Corpuscular Hemoglobin 27.5 pg (27.0-33.0); Mean Corpuscular Volume 85.5 fL (80.0-98.0); Mean Platelet Volume 9.1 fL (9.4-12.3); Monocytes Absolute Auto 0.6 X10*3/uL (0.1-1.2); Monocytes Percent Auto 6.7 % (2-11); Neutrophils Absolute Auto 6.2 x10*3/uL (2.0-8.3); Neutrophils Percent Auto 68.4 % (45-73); Platelet Count 337 X10*3/uL (160-400); Red Blood Count 4.69 X10*6/uL (4.20-5.50); Red Cell Distribution Width 14.1 % (11.0-16.0); White Blood Count 9.1 X10*3/uL (4.8-10.8)
[2023-12-12 10:05] LABS: Estimated Average Glucose 154 mg/dL
[2023-12-12 10:19] LABS: Alanine Aminotransferase 13 U/L (0-31); Albumin Level 4.1 g/dL (3.5-5.0); Alkaline Phosphatase 68 U/L (39-117); Anion Gap 14 (12-20); Aspartate Amino Transferase 17 U/L (5-31); Bilirubin Total 0.3 mg/dL (0.0-1.0); Blood Urea Nitrogen 34 mg/dL (9-16); Calcium 9.6 mg/dL (8.4-10.2); Carbon Dioxide 27 mmol/L (22-29); Chloride 105 mmol/L (96-108); Cholesterol 156 mg/dL (<200); Estimated Glomerular Filt Rate 43; Glucose Fasting 146 mg/dL (60-99); HDL Cholesterol 56 mg/dL (>40); LDL Cholesterol Calculated 79 mg/dL (<100); Potassium 4.8 mmol/L (3.3-5.1); Sodium 141 mmol/L (135-145); Total Protein 7.3 g/dL (6.5-8.0); Triglycerides 109 mg/dL (<150)
[2023-12-12 11:41] LABS: Creatinine Urine 82.15 mg/dL; Microalbum/Creatinine Ratio Ur 25.5 ug/mg cr (<30)
== END 2023-12-12 09:11 | disposition home or self-care (01) ==
LOC: HO.LAB 09:10
PROVIDERS: PCP Internal Medicine Medical Oncology; Visit Provider Internal Medicine Medical Oncology
DX: E11.9 Type 2 diabetes mellitus without complications (principal); E78.2 Mixed hyperlipidemia; E66.9 Obesity, unspecified
CPT/HCPCS: 36415; 80053; 80061; 82043; 82570; 83036; 85025

== ENCOUNTER 2024-02-20 09:11 | Outpatient (REF) | payer MEDICARE, BC, SELFPAY ==
[2024-02-20 09:44] LABS: MANUAL DIFF FLAG NO
[2024-02-20 10:11] LABS: Basophils Absolute Auto 0.1 X10*3/uL (0.0-0.2); Eosinophils Absolute Auto 0.2 X10*3/uL (0.0-0.4); Eosinophils Percent Auto 1.9 % (0-4); Hematocrit 40.3 % (37.0-47.0); Hemoglobin 12.8 g/dl (12.0-16.0); Lymphocytes Percent Auto 20.2 % (20-40); Mean Corpuscular HGB Conc 31.8 g/dl (31.0-35.0); Mean Corpuscular Hemoglobin 27.4 pg (27.0-33.0); Mean Corpuscular Volume 86.3 fL (80.0-98.0); Mean Platelet Volume 9.3 fL (9.4-12.3); Monocytes Absolute Auto 0.6 X10*3/uL (0.1-1.2); Monocytes Percent Auto 6.3 % (2-11); Neutrophils Absolute Auto 6.9 x10*3/uL (2.0-8.3); Neutrophils Percent Auto 69.6 % (45-73); Platelet Count 333 X10*3/uL (160-400); Red Blood Count 4.67 X10*6/uL (4.20-5.50); Red Cell Distribution Width 14.2 % (11.0-16.0); White Blood Count 9.9 X10*3/uL (4.8-10.8)
[2024-02-20 10:34] LABS: Estimated Average Glucose 154 mg/dL
[2024-02-20 10:45] LABS: Creatinine Urine 111.94 mg/dL; Microalbum/Creatinine Ratio Ur 30.3 ug/mg cr (<30)
[2024-02-20 10:52] LABS: Alanine Aminotransferase 16 U/L (0-31); Albumin Level 4.2 g/dL (3.5-5.0); Alkaline Phosphatase 75 U/L (39-117); Anion Gap 15 (12-20); Aspartate Amino Transferase 18 U/L (5-31); Bilirubin Total 0.3 mg/dL (0.0-1.0); Blood Urea Nitrogen 35 mg/dL (9-16); Calcium 10.5 mg/dL (8.4-10.2); Carbon Dioxide 26 mmol/L (22-29); Chloride 103 mmol/L (96-108); Cholesterol 167 mg/dL (<200); Estimated Glomerular Filt Rate 46; Glucose Fasting 154 mg/dL (60-99); HDL Cholesterol 52 mg/dL (>40); LDL Cholesterol Calculated 82 mg/dL (<100); Potassium 4.2 mmol/L (3.3-5.1); Sodium 140 mmol/L (135-145); Total Protein 7.5 g/dL (6.5-8.0); Triglycerides 168 mg/dL (<150)
== END 2024-02-20 09:12 | disposition home or self-care (01) ==
LOC: HO.LAB 09:11
PROVIDERS: PCP Internal Medicine Medical Oncology; Visit Provider Internal Medicine Medical Oncology
DX: Z13.89 Encounter for screening for other disorder (principal)
CPT/HCPCS: 36415; 80053; 80061; 82043; 82570; 83036; 85025

== ENCOUNTER 2024-02-20 10:07 | Outpatient (REF) | payer MEDICARE, BC, SELFPAY ==
--- NOTE | ~2024-02-20 | MM_ITS ---
EXAMINATION: MM SCREENING DIGITAL BREAST TOMOSYNTHESIS, BILATERAL CLINICAL INFORMATION: Screening. Asymptomatic. COMPARISON: Mammography: Comparison is made with available priors TECHNIQUE: Digital breast tomosynthesis is performed in both the craniocaudal and mediolateral oblique views along with computer-aided detection (CAD). Synthesized 2D images are generated from the tomosynthesis. FINDINGS: There are scattered areas of fibroglandular density (ACR BI-RADS breast composition Category b). There are no significant masses, abnormal calcifications, or other abnormalities. MM/MM tomosynthesis screening BI IMPRESSION: No mammographic evidence of malignancy. ASSESSMENT: BI-RADS BI-RADS 1 - Negative RECOMMENDATION: Routine annual mammography screening. 1 year F/U This examination should not preclude the clinical evaluation of a suspicious palpable abnormality. This patient's information was entered into a reminder system with a target due date for their next mammogram. Electronically signed by: Fany Roberson DO 03/13/2024 09:11 PM EDT
== END 2024-02-20 10:08 | disposition home or self-care (01) ==
LOC: HO.MAMMO 10:07
PROVIDERS: PCP Internal Medicine Medical Oncology; Visit Provider Internal Medicine Medical Oncology
DX: Z12.31 Encounter for screening mammogram for malignant neoplasm of breast (principal)
CPT/HCPCS: 36415; 77063; 77067; 80053; 80061; 82043; 82570; 83036; 85025

== ENCOUNTER → 2024-02-20 10:30 | Outpatient (BNV) | payer MEDICARE, BC, SELFPAY | PROVIDERS: PCP Internal Medicine Medical Oncology; Visit Provider Internal Medicine | DX: Z12.31 Encounter for screening mammogram for malignant neoplasm of breast (principal) | CPT/HCPCS: 77063; 77067 ==

== ENCOUNTER 2024-06-22 09:05 | Outpatient (REF) | payer MEDICARE, BC, SELFPAY ==
--- OUTSIDE RECORDS SUMMARY | 2024-06-22 09:07 | XMS_ITS ---
Author Organization Corey Sumner III, MD Address [address] [place] [address] Care Team Providers Care Braiding Machine Tender Name Role Phone Corey Sumner Primary Care Provider Reason For Referral Reason Consult and Treat Right Elbow Pain Diagnosis 1 Elbow pain, right (M 25.521) Referral Organization Corey Sumner III, MD Referring Provider First Name Corey Referring Provider Last Name Taisha Referring Provider Speciality Internal M edicine Referred Provider [place] Referred Provider Specialty Orthopedic S urgery General Notes DCarolyn 05/18/2024 11:26:23 AM > Referral and progress note faxed., Carolyn Morales 06/11/2024 02:21:24 PM > Refaxed referral as they did not receive the referral. patient was called and notified. Patient stated that she does not want to go to [facility] as it is hard to get ahold of, patient would like for the referral to be closed. Referral Priority Routine REASON FOR VISIT Needs Referral Social History Sex Assigned At : Social History Observation Description Sex Assigned At Female Encounters Encounter Location Date Provider Diagnosis Corey Sumner III, MD [address] [place] [address] [place] [address] 05/18/2024 Corey Sumner Plan Of Treatment Referrals Referral Date Details 05/18/2024 05/18/2024, Consult and Treat Right Elbow Pain, [facility] [place] Next Appt Details Provider Name:Corey Sumner, 07/01/2024 02:00:00 PM, [address] [place] [address] [place], [address], Provider Name:Corey Sumner, 08/25/2024 02:00:00 PM, [address] [place] [address] [address], [place], [address], Progress Notes * Pam MARQUEZ AnnDOB:09/1950 (73 yo F)Acc No.[id number]:05/18/2024 Patient:?Pam MARQUEZ An n :1950???Age:73 Y???Sex:Female Address:[address] [place] [address], [place], [address] Subjective: * Chief Complaints: * ???Needs Referral * Medical History:? * Surgical History:? * Hospitalization/Major Diagno stic Procedure:? * Medications:? Objective: * Vitals:? * Physical Examination:? Assessment: Plan: * Treatment: * Procedure Codes:? * true * Date:? Generated for Madelyn betts/Kenny/eTransmitting on:?06/22/2024 09:07 AM EST Consultation Request Notes Referral Date Referring Provider Referred Provider Not josef 05/18/2024 Corey Sumner [facility] Consult and Treat Right Elbow Pain
--- OUTSIDE RECORDS SUMMARY | 2024-06-22 09:07 | XMS_ITS ---
Author Organization Corey Sumner III, MD Address [address] [place] [address] [place] [address] Care Team Providers Care Interim Controller Name Role Phone Corey Sumner Primary Care Provider Allergies Allergen (clinical drug [...] Date Provider Diagnosis Corey Sumner III, MD [address] [place] [address] [place] [address] 02/26/2024 Corey Sumner Controlled type 2 diabetes [...] Up: 4 Months, Reason: OV Provider Name:Corey Sumner, 07/01/2024 02:00:00 PM, [address] [place] [address] [address], [place], [address], Provider Name:Corey Sumner, 08/25/2024 02:00:00 PM, [address] [place] [address] [address], [place], [address], Progress Notes * Pam MARQUEZ AnnDOB:09/1950 (73 yo F)Acc No.[id number]:02/26/2024 Progress Notes Patient:?Pam Marquez Provider:?Corey Sumner MD :1950???Age:73 Y???Sex:Female D ate:02/26/2024 Address:[address] [place] [address], [facility] Subjective: * Chief Complaints: * ???Type 2 diabetesHypertensi onHyperlipidemiaAsthmaObesityNephrolithiasis * HPI: ???COVID-19 Screening:? She returns to the office for medical management. Her blood work was reviewed with her in detail. No changes in her medications were necessary today. She feels healthy and well. She is living independently at home. Her blood pressure is controlled. She has not had episodes of asthma recently. She is trying to lose weight. She has had no renal colic. ?Questions?Have you experienced fever, chills, cough, sore throat, shortness of breath, difficulty breathing, muscle aches, loss of taste or smell??No ?Have you been exposed to the virus within the last 10 days??No ?Have you travelled internationally in the last 10 days??No ?Have you been exposed to COVID-19 in the past??Yes * ROS:?General/Constitutional:?pain?only normal aches and pains.?Chills?denies.?Fatigue?admits.?Fever?denies.?ENT:?Decreased hearing?mild.?Respiratory:?Cough?denies.?Cardiovascular:?Chest pain with exertion?denies.?Dyspnea on exertion?denies.?Shortness of breath?denies.?Gastrointestinal:?Constipation?occasional.?Decreased appetite?denies.?Diarrhea?denies.?Heartburn?denies.?Nausea?denies.?Rectal bleeding?denies.?Vomiting?denies.?Hematology:?bruising?denies.?petechiae?denies.?Swollen glands?none have been noted.?Genitourinary:?Frequent urination?at night.?Musculoskeletal:?Muscle aches?denies.?Painful joints?denies.?Sciatica?denies.?Weakness?denies.?Skin:?Itching?denies.?Rash?denies.?Skin lesion(s)?denies.?Neurologic:?Difficulty speaking?denies.?Dizziness?denies.?Headache?denies.?Low back pain?denies.?Psychiatric:?Depressed mood?denies.? * Medical History:? * Surgical History:?rotator cu ff tear repair/ right shoulder 11/2008right ankle fracture 1993endocervical polypectomy, [facility], Dr. Duffy 10/2017both eyelids lift 11/2018 * Hospitalization/Major Diagno stic Procedure:?injured kidney 2015 * Family History:?Father: dece ased 84 yrs, Congestive heart failure, coronary artery disease, angina, diagnosed with CVD.?Mother: 65 yrs, Hypertension, adult-onset diabetes mellitus, osteoarthritis, breast cancer, diagnosed with DM, Cancer, HTN.?1 brother(s) , 1 sister(s) - healthy. 2 daughter(s) - healthy. .? She has one sister with lung disease and rheumatoid arthritis. She has a brother who has had several strokes at the age of 55. Her 2 daughters are alive and well and healthy. She is not aware of any family history of mental illness, addiction or substance abuse. * Social History:?Tobacco Use:?Tobacco Use/Smoking?Patient is a?nonsmoker ?Additional Findings: Tobacco Non-User?Aggressive non-smoker ???She has been to Don for 48 years. She has 2 children and he has one child. They have one child together. Bertrand has had a DVT. Fiona has osteoarthritis and diabetes mellitus. Karen had a myocardial infarction at age 43. They have 7 grandchildren. She is retired. 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 * Medications:?TakingmetFORMIN HCl 500 MG Tablet TAKE 2 TABLETS [...] WITH FOOD NEEDED Trulicity 0.75 MG/0.5ML Solution Pen-injector as directed [...] reviewed and reconciled with the patient * Allergies:?Codeine Sulfate: vomitingPercocet: vomitingno[Allergies Verified] Objective: * Vitals:?Ht: 63, Wt:195, BMI: 34.54, BP:140/79, HR:74, Temp:97.2, Ht-cm: 160.02, Wt-k.45. * ???Past Orders: Lab:Lipid Panel * Order Date 02/20/2024 12/12/2023 08/14/2023 Triglycerides 168?H (Ref Range: <150 mg/dL) 109 (Ref Range: <150 mg/dL) 108 (Ref Range: <150 mg/dL) Cholesterol 167 (Ref Range: <200 mg/dL) 156 (Ref Range: <200 mg/dL) 187 (Ref Range: <200 mg/dL) LDL Cholesterol Calculated 82 (Ref Range: <100 mg/dL) 79 (Ref Range: <100 mg/dL) 101?H (Ref Range: <100 mg/dL) HDL Cholesterol 52 (Ref Range: >40 mg/dL) 56 (Ref Range: >40 mg/dL) 65 (Ref Range: >40 mg/dL) * Lab:Comprehensive [place]. Pane l Fast * Order Date 02/20/2024 [...] 15 (Ref Range: 12-20) Blood Urea Nitrogen 35?H (Ref Range: 9-16 mg/dL) 34?H (Ref Range: 9-16 mg/dL) 32?H (Ref Range: 9-16 mg/dL) Creatinine 1.14 (Ref Range: 0.5-1.4 mg/dL) 1.22 (Ref Range: 0.5-1.4 mg/dL) 1.30 (Ref Range: 0.5-1.4 mg/dL) Estimated Glomerular Filt Rate 46 43 40 Glucose Fasting 154?H (Ref Range: 60-99 mg/dL) 146?H (Ref Range: 60-99 mg/dL) 207?H (Ref Range: 60-99 mg/dL) Calcium 10.5?H (Ref Range: 8.4-10.2 mg/dL) 9.6 (Ref Range: [...] (Ref Range: 160-400 X10*3/uL) Mean Platelet Volume 9.3?L (Ref Range: 9.4-12.3 fL) 9.1?L (Ref Range: 9.4-12.3 fL) 9.0?L (Ref Range: 9.4-12.3 fL) Neutrophils Percent Auto 69.6 (Ref Range: 45-73 %) 68.4 (Ref Range: 45-73 %) 62.9 (Ref Range: 45-73 %) Imm Gran Pct Auto 1.0?H (Ref Range: 0.0-0.4 %) 1.3?H (Ref Range: 0.0-0.4 %) 1.6?H (Ref Range: 0.0-0.4 %) Lymphocytes Percent Auto [...] Range: 2.0-8.3 x10*3/uL) Imm Gran Abs Auto 0.10?H (Ref Range: 0.00-0.03 X10*3/uL) 0.12?H (Ref Range: 0.00-0.03 X10*3/uL) 0.15?H (Ref Range: 0.00-0.03 X10*3/uL) Lymphocytes Absolute Auto [...] Date 02/20/2024 12/12/2023 08/14/2023 Hemoglobin A1c % 7.0?H (Ref Range: <6.0 %) 7.0?H (Ref Range: <6.0 %) 8.9?H (Ref Range: <6.0 %) Estimated Average Glucose 154 (Ref Range: mg/dL) 154 (Ref Range: mg/dL) 209 (Ref Range: mg/dL) * Lab:Microalbumin, Random * Order Date 02/20/2024 12/12/2023 04/17/2023 Creatinine Urine 111.94 (Ref Range: mg/dL) 82.15 (Ref Range: mg/dL) 106.96 (Ref Range: mg/dL) Microalbumin Urine 34.0 (Ref Range: mg/L) 21.0 (Ref Range: mg/L) 97.0 (Ref Range: mg/L) Microalbum Creatinine Ratio Ur 30.3?H (Ref Range: <30 ug/mg cr) 25.5 (Ref Range: <30 ug/mg cr) 90.6?H (Ref Range: <30 ug/mg cr) * Examination: ???General Examination: ?GENERAL APPEARANCE:?pleasant, well nourished, well developed, in no acute distress, calm and relaxed , obese , woman.?HEAD:?atraumatic, normocephalic.?EYES:?eomi, perrla, anicteric, conjugate.?EARS:?normal.?NOSE:?septum intact.?ORAL CAVITY:?normal, unremarkable.?NECK/THYROID:?no jugular venous distention, no carotid bruit, thyroid normal.?LYMPH NODES:?no enlarged lymph nodes,spleen normal.?SKIN:?no suspicious lesions, anicteric.?HEART:?no clicks, gallops, murmurs, or rubs, regular rhythm, S1, S2 normal, no s3, or vascular bruits.?LUNGS:?clear to auscultation , scattered inspiratory wheezes , good air movement.?BREASTS:??no masses palpable bilaterally.?ABDOMEN:?bowel sounds normal, no ascites, no organomegaly, no mass.?RECTAL EXAM:?not examined.?MUSCULOSKELETAL:?extremities unremarkable, no clubbing, cyanosis or edema.?PERIPHERAL PULSES:?normal.?NEUROLOGIC:?alert and oriented, cranial nerves 2-12 grossly intact, deep tendon reflexes 2+ symmetrical, motor strength normal upper and lower extremities, sensory exam intact.?PSYCH:?alert, oriented.? Assessment: * Assessment: 1.?Controlled type 2 diabete s mellitus without complication, without long-term current use of insulin - E11.9, She is doing well. She is compliant with her medications. Her weight is stable. Her hemoglobin A1c is 7.0. No changes in her medication were made. I strongly recommended modifications to her lifestyle including exercise and weight loss.?2.?Mixed hyperlipidemia - E78.2, Her total cholesterol is controlled at 167. No change in her medication was needed.?3.?Obesity (BMI 30.0- 34.9) - E66.9, Her weight is stable and her body mass index is 34.5. We reviewed her weight loss strategy. We discussed modifications to lifestyle that could cause weight loss.?4.?Nephrolithiasis - N20.0, She has had no renal colic. In the last year. She will notify me if this happens.?5.?Moderate asthma, unspecified whether complicated, unspecified whether persistent - J45.909, She has had no attacks of asthma recently. He has had no flareups of allergies. Her breathing was within normal limits with good air movement today. Mild occasional inspiratory wheezing was noted today in the right lung.? Plan: * Treatment: 2.?Mixed hyperlipidemia?LAB: PROFILE, FASTING (COMPREHENSIVE METABOLIC) ?LAB: CBC WITH AUTO DIFF ?LAB: Lipid Panel ?LAB: Microalbumin, Random ?LAB: Hemoglobin A1c 3.?Obesity (BMI 30.0-34.9)?LAB: PROFILE, FASTING (COMPREHENSIVE METABOLIC) ?LAB: CBC WITH AUTO DIFF ?LAB: Lipid Panel ?LAB: Microalbumin, Random ?LAB: Hemoglobin A1c 4.?Others? Continue metFORMIN HCl Tablet, 500 MG, TAKE 2 TABLETS BY MOUTH TWICE DAILY;?Continue Lisinopril Tablet, 40 MG, TAKE 1 TABLET BY MOUTH EVERY DAY;?Continue Pioglitazone HCl Tablet, 30 MG, TAKE 1 TABLET BY MOUTH EVERY DAY;?Continue Simvastatin Tablet, 20 MG, TAKE 1 TABLET BY MOUTH EVERY DAY;?Continue hydroCHLOROthiazide Tablet, 25 MG, TAKE 1 TABLET BY MOUTH EVERY DAY;?Continue Montelukast Sodium Tablet, 10 MG, TAKE 1 TABLET BY MOUTH EVERY EVENING;?Continue Aspirin Tablet, 325 MG, 1 tablet, Orally, Once a day;?Continue Vitamin E Capsule, 400 UNIT, 1 capsule, Orally, Once a day;?Continue Albuterol Sulfate HFA Aerosol Solution, 108 (90 Base) MCG/ACT, 2 puffs as needed, Inhalation, four times a day prn wheezing;?Continue Alendronate Sodium Tablet, 70 MG, 1 tablet 30 minutes before the first food, beverage or medicine of the day with plain water, Orally;?Continue Spironolactone Tablet, 50 MG, 1 tablet, Orally, Once a day;?Continue Sodium Polystyrene Sulfonate Suspension, 15 GM/60ML, 60 ml, Orally, Once a day;?Continue Etodolac Capsule, 200 MG, TAKE 1 CAPSULE BY MOUTH TWICE DAILY WITH FOOD NEEDED;?Continue Trulicity Solution Pen-injector, 0.75 MG/0.5ML, as directed, Subcutaneous, once a week.?? * Procedure Codes:? * Preventive Medicine:? ??Counseling:?Care goal follow-up plan:?Counseling for abnormal BMI given?Yes ?Above Normal BMI Follow-up?Dietary management education, guidance, and counseling, Dietary needs education, Exercise promotion: strength training, Exercise promotion: stretching, Feeding regime, Giving encouragement to exercise, Lifestyle education regarding diet, Nutrition / feeding management, Nutrition therapy, Prescribed activity/exercise education, Prescribed diet education, Prescribed dietary intake, Special diet education, Weight monitoring , Intervention, Order not done: Medical or Other reason not done ??DM Care Plan:?Patient Lifestyle Goals?Patient wants to be able to manage diabetes without too much effort.?Treatment Goals?HbA1C < 7.0, Blood Sugars less than < 115.?Barriers?no barriers.?Self-Managment Goals?Work on weight loss, with a goal of losing 1 lb per week.? * Follow Up:?4 Months (Reason: OV) * Images: * Sign off status: Completed true * Provider:?Corey Sumner MD Date:?09/2023 Generated for Jossyi ng/Kenny/eTransmitting on:?06/22/2024 09:07 AM EST History and Physical Notes * HPI (History of Present Illness) Category Sub-Category Detail Notes COVID-19 Screening Questions Have you had any new onset fever, chills, cough, congestion, sore throat, shortness of breath, muscle aches?: No Have you been exposed to the virus withi n the last 10 days?: No Have you travelled internationally in e last 10 days?: No Have you been [...]
--- OUTSIDE RECORDS SUMMARY | 2024-06-22 09:08 | XMS_ITS ---
Author Organization Corey Sumner III, MD Address [address] [place] [address] [place] [address] Care Team Providers Care Preparation Center Coordinator Name Role Phone Corey Sumner Primary Care Provider Allergies Allergen (clinical drug ingredient) Drug/Non Drug Allergy documented on EMR Reaction Allergy Type Onset Date Status acetaminophen / oxycodone Percocet vomiting Drug Allergy Active codeine Codeine Sulfate vomiting Drug Allergy A ctive REASON FOR VISIT Right elbow pain Medications Medication SIG (Take, Route, Frequency, Duration) Notes Start Date End Date Status Etodolac 200 MG TAKE 1 CAPSULE BY MOUTH TWICE DAILY WITH FOOD NEEDED Active Sodium Polystyrene Sulfonate 15 GM/60ML 60 ml Orally Once a day 01/11/2022 Active Trulicity 0.75 MG/0.5ML as directed Subcutaneous once a week 08/28/2023 Active Spironolactone 50 MG 1 tablet Orally Onc e a day 10/19/2020 Active Alendronate Sodium 70 MG 1 tablet 30 min utes before the first food, beverage or medicine of the day with plain water Orally Active hydroCHLOROthiazide 25 MG TAKE 1 TABLET BY MOUTH EVERY DAY Active Aspirin 325 MG 1 tablet Orally Once a day Active Montelukast Sodium 10 MG TAKE 1 TABLET B Y MOUTH EVERY EVENING Active Albuterol Sulfate HFA 108 (9 0 Base) MCG/ACT 2 puffs as needed Inhalation four times a day prn wheezing 02/09/2019 Active Vitamin E 400 UNIT 1 capsule Orally Onc e a day Active Lisinopril 40 MG TAKE 1 TABLET BY COLBY TH EVERY DAY Active metFORMIN HCl 500 MG TAKE 2 TABLETS BY MOUTH TWICE DAILY Active Simvastatin 20 MG TAKE 1 TABLET BY COLBY TH EVERY DAY Active Pioglitazone HCl 30 MG TAKE 1 TABLET BY MOUTH EVERY DAY Active Social History Tobacco Use: Social History Observation Description Date Details (start date - stop date) Never Smoker NA - NA Sex Assigned At : Social History Observation Description Sex Assigned At Female Tobacco Use/Smoking Question Answer Notes Patient is a nonsmoker Additional Findings: Tobacco Non-User Aggressive non-smoker Vital Signs Height 63 in 12/25/2023 Weight 195 lbs 12/25/2023 BMI 34.54 kg/m2 12/25/2023 Encounters Encounter Location Date Provider Diagnosis Corey Sumner III, MD [address] [place] [address] DR [place], [place] [id number] 12/25/2023 Corey Sumner Elbow pain, right M25.521 ; Essential hypertension I10 ; Nephrolithiasis N20.0 and Mixed hyperlipidemia E78.2 Assessments Encounter Date Diagnosis (ICD Code) Assessment Notes Treat ment Notes Treatment Clinical Notes 12/25/2023 Elbow pain, right (ICD-10 - M25.521) The discomfort has completely resolved. She was advised to refrain from heavy lifting for 2 weeks and to call me once the pain returns. 12/25/2023 Essential hypertensi on (ICD-10 - I10) Her blood pressure is currently stable and no change in her regimen was made. I recommended aggressive weight loss and sodium restriction. 12/25/2023 Nephrolithiasis (ICD-10 - N20.0) She has had no renal colic. In the last year. She will notify me if this happens. 12/25/2023 Mixed hyperlipidemia (ICD-10 - E78.2) Her fasting lipid profile shows good control of her lipids which are in the normal range. No change in her regimen as needed. Plan Of Treatment Medication Medication Name Sig Start Date Stop Date Notes Etodolac 200 MG TAKE 1 CAPSULE BY [facility] TWICE DAILY WITH FOOD NEEDED Sodium Polystyrene Sulfonate 15 GM/60ML 60 ml Orally Once a day 01/11/2022 Trulicity 0.75 MG/0.5ML as directed Subc utaneous once a week 08/28/2023 Spironolactone 50 MG 1 tablet Orally Onc e a day 10/19/2020 Alendronate Sodium 70 MG 1 tablet 30 min utes before the first food, beverage or medicine of the day with plain water Orally hydroCHLOROthiazide 25 MG TAKE 1 TABLET BY MOUTH EVERY DAY Aspirin 325 MG 1 tablet Orally Once a day Montelukast Sodium 10 MG TAKE 1 TABLET B Y MOUTH EVERY EVENING Albuterol Sulfate HFA 108 (9 0 Base) MCG/ACT 2 puffs as needed Inhalation four times a day prn wheezing 02/09/2019 Vitamin E 400 UNIT 1 capsule Orally Onc e a day Lisinopril 40 MG TAKE 1 TABLET BY COLBY TH EVERY DAY metFORMIN HCl 500 MG TAKE 2 TABLETS BY M OUTH TWICE DAILY Simvastatin 20 MG TAKE 1 TABLET BY COLBY TH EVERY DAY Pioglitazone HCl 30 MG TAKE 1 TABLET BY MOUTH EVERY DAY Next Appt Details Follow Up: 2 Months, Reason: Office visit Provider Name:Corey Sumner, 07/01/2024 02:00:00 PM, [address] [place] [address] [address], [place], [id number], Provider Name:Corey Sumner, 08/25/2024 02:00:00 PM, [address] [place] [address] [address], [place], [id number], Progress Notes * Pam MARQUEZ AnnDOB:09/1950 (73 yo F)Acc No.[id number]:12/25/2023 Patient:?Pam Marquez n Provider:?Corey Sumner MD :1950???Age:73 Y???Sex:Female D ate:12/25/2023 Address:[address] [place], [place] [id number] Subjective: * Chief Complaints: * ???Right elbow pain * HPI: ???:? This telehealth visit took place over 15 minutes with the patient at home and me in my office. She gave consent for billing. On her last visit she complained of pain in the right elbow which was consistent with a nerve entrapment.She was treated conservatively with heat and rest. Today she reports the pain has completely resolved. She was advised to refrain from heavy lifting for 2 weeks. ?Telehealth?Location of provider rendering services:?{...} [address] [facility] [address] ?Location of patient:?address listed in demographics for today's visit ?Patient identification confirmed using:?Name, ?Telehealth method:?Telephone only. Patient not visible to care provider. ?Consent:?Patient verbally consented to treatment, Patient verbally consented to billing insurance company, Patient informed of any privacy concerns related to method of visit ?Total time spent with patient (mins)?15 * ROS:?General/Constitutional:?pain?Right elbow, otherwise only normal aches and pains.?Chills?denies.?Fatigue?admits.?Fever?denies.?ENT:?Decreased hearing?denies.?Respiratory:?Cough?denies.?Cardiovascular:?Chest pain with exertion?denies.?Dyspnea on exertion?denies.?Shortness of breath?denies.?Gastrointestinal:?Constipation?occasional.?Decreased appetite?denies.?Diarrhea?denies.?Heartburn?denies.?Nausea?denies.?Rectal bleeding?denies.?Vomiting?denies.?Hematology:?bruising?denies.?petechiae?denies.?Swollen glands?none have been noted.?Genitourinary:?Frequent urination?denies.?Musculoskeletal:?Muscle aches?denies.?Painful joints?denies.?Sciatica?denies.?Weakness?denies.?Skin:?Itching?denies.?Rash?denies.?Skin lesion(s)?denies.?Neurologic:?Difficulty speaking?denies.?Dizziness?denies.?Headache?denies.?Low back pain?denies.?Psychiatric:?Depressed mood?denies.? * Medical History:? * Surgical History:?rotator cu ff tear repair/ right shoulder 11/2008right ankle fracture 1993endocervical polypectomy, [facility], Dr. Duffy 10/2017both eyelids lift 11/2018 * Hospitalization/Major Diagno stic Procedure:?injured kidney 2015 * Family History:?Father: dece ased 84 yrs, Congestive heart failure, coronary artery disease, angina, diagnosed with CVD.?Mother: 65 yrs, Hypertension, adult-onset diabetes mellitus, osteoarthritis, breast cancer, diagnosed with Cancer, HTN, DM.?1 brother(s) , 1 sister(s) - healthy. 2 [...] grandchildren. She is retired. 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 * [...] Objective: * Vitals:?Ht: 63, Wt:195, BMI: 34.54, Ht-cm: 160.02, Wt-k.45. Assessment: * Assessment: 1.?Elbow pain, right - M25.5 21 (Primary), The discomfort has completely resolved. She was advised to refrain from heavy lifting for 2 weeks and to call me once the pain returns.?2.?Essential hypertension - I10, Her blood pressure is currently stable and no change in her regimen was made. I recommended aggressive weight loss and sodium restriction.?3.?Nephrolithiasis - N20.0, She has had no renal colic. In the last year. She will notify me if this happens.?4.?Mixed hyperlipidemia - E78.2, Her fasting lipid profile shows good control of her lipids which are in the normal range. No change in her regimen as needed.? Plan: * Treatment: * Procedure Codes:?51344 PHONE E/M BY PHYS 11-20 MIN * Preventive Medicine:? ??Counseling:?Care goal follow-up plan:?Counseling for abnormal BMI given?Yes ?Above Normal BMI Follow-up?Dietary management education, guidance, and counseling, Dietary needs education ??DM Care Plan:?Patient Lifestyle Goals?Patient wants to be able to manage diabetes without too much effort.?Treatment Goals?HbA1C < 7.0, Blood Sugars less than < 115.?Barriers?no barriers.?Self-Managment Goals?Work on weight loss, with a goal of losing 1 lb per week.? * Follow Up:?2 Months (Reason: Office visit) * Images: * Sign off status: Completed true * Provider:?Corey Sumner MD Date:?08/2023 Generated for Madelyn betts/Kenny/Koryitting on:?06/22/2024 09:07 AM EST History and Physical Notes * HPI (History of Present Illness) Category Sub-Category Detail Notes Telehealth Location of [facility] rendering services:: {...} [address] [facility] [address] Location of patient:: address listed in demographics for today's visit Patient identification confirmed using:: Name, Telehealth method:: Telephone only. Elma ent not visible to care provider. Consent:: Patient verbally c onsented to treatment, Patient verbally consented to billing insurance [employer], Patient informed of any privacy concerns related to method of visit Total time spent with patient (mins): 15
--- OUTSIDE RECORDS SUMMARY | 2024-06-22 09:08 | XMS_ITS | Patient Health Record ---
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 Role Phone Corey Sumner Primary Care Provider Allergies Allergen (clinical drug ingredient) Drug/Non Drug Allergy documented on EMR Reaction Allergy Type Onset Date Status acetaminophen / oxycodone Percocet vomiting Drug Allergy Active codeine Codeine Sulfate vomiting Drug Allergy A ctive Results Component Value Reference Range Notes URINE DIP STICK Reviewed date:08/21/2023 02:37:21 PM Interpretation: Performing Lab: Notes/Report: SG 1.010 1.005 - 1.025 pH 6.0 5.0 - 9.0 LESLIE 15 Negative - NIT Negative Negative - PRO 15 Negative - Trace GLU Negative Negative - KET Negative Negative - UBG 0.2 0.1 - 1.8 SARINA Negative 0.2 - 1.3 BLD 5-10 Negative - Menstrating No Complete Blood Count Auto Di ff Reviewed date:08/21/2023 01:24:29 PM Interpretation: Performing Lab:[facility], [address] [place] [phone] Notes/Report: White Blood Count 9.1 4.8-10.8 X10*3/uL Red Blood Count 4.88 4.20-5.50 X10*6/uL Hemoglobin 13.2 12.0-16.0 g/dl Hematocrit 41.8 37.0-47.0 % Mean Corpuscular Volume 85.7 80.0-98.0 fL Mean Corpuscular Hemoglobin 27.0 27.0-33.0 pg Mean Corpuscular HGB Conc 31.6 31.0-35.0 g/dl Red Cell Distribution Width 13.9 11.0-16.0 % Platelet Count 298 160-400 X10*3/uL Mean Platelet Volume 9.0 9.4-12.3 fL Neutrophils Percent Auto 62.9 45-73 % Imm Gran Pct Auto 1.6 0.0-0.4 % Lymphocytes Percent Auto 24.7 20-40 % Monocytes Percent Auto 7.3 2-11 % Eosinophils Percent Auto 2.4 0-4 % Basophils Percent Auto 1.1 0-2 % NRBC Pct Auto 0.0 0.0-0.2 /100WBC Neutrophils Absolute Auto 5.7 2.0-8.3 x10*3/u L Imm Gran Abs Auto 0.15 0.00-0.03 X10*3/uL Lymphocytes Absolute Auto 2.3 1.2-4.9 X10*3/u L Monocytes Absolute Auto 0.7 0.1-1.2 X10*3/uL Eosinophils Absolute Auto 0.2 0.0-0.4 X10*3/u L Basophils Absolute Auto 0.1 0.0-0.2 X10*3/uL NRBC Abs Auto 0.000 0.0-0.012 X10*3/uL Comprehensive [place]. Panel Fa st Reviewed date:08/21/2023 01:24:29 PM Interpretation: Performing Lab:[facility], [address] [place] [phone] Notes/Report: Sodium 142 135-145 mmol/L Potassium 5.1 3.3-5.1 mmol/L Chloride 105 96-108 mmol/L Carbon Dioxide 27 22-29 mmol/L Anion Gap 15 12-20 Blood Urea Nitrogen 32 9-16 mg/dL Creatinine 1.30 0.5-1.4 mg/dL Estimated Glomerular Filt Rate 40 NOTE: For -Marshallese individuals, multiply the result by 1.210. Chronic Kidney Disease: Estimated GFR < 60 mL/min/1.73m2 Severe Kidney Disease: Estimated GFR < 15 mL/min/1.73m2 Glucose Fasting 207 60-99 mg/dL A fasting glucose of 126 mg/dl or greater on more than one occasion is considered diagnostic of diabetes. Calcium 9.6 8.4-10.2 mg/dL Bilirubin Total 0.3 0.0-1.0 mg/dL Aspartate Amino Transferase 18 5-31 U/L Alanine Aminotransferase 18 0-31 U/L Total Protein 7.6 6.5-8.0 g/dL Albumin Level 4.1 3.5-5.0 g/dL Alkaline Phosphatase 89 39-117 U/L Lipid Panel Reviewed date:08/21/2023 01:24:29 PM Interpretation: Performing Lab:[address] [phone] Notes/Report: Triglycerides 108 <150 mg/dL Desirable Triglyceride: less than 150 mg/dL Borderline High Triglyceride 150-199 mg/dL High Triglyceride: 200-499 mg/dL Very High Triglyceride: greater than or equal to 5OO mg/dL Cholesterol 187 <200 mg/dL Desirable Cholesterol: less than 200 mg/dL Borderline High Cholesterol: 200-239 mg/dL High Cholesterol: greater than 239 mg/dL LDL Cholesterol Calculated 101 <100 mg/dL Desirable LDL: less than 100 mg/dL Near Optimal/Above Optimal LDL: 110-129 mg/dL Borderline High LDL: 130-159 mg/dL High LDL: 160-189 mg/dL Very High LDL: greater than or equal to 190 mg/dL HDL Cholesterol 65 >40 mg/dL Desirable HDL: greater than 40 mg/dL Note: This HDL assay may give artificially low results in patients with liver disease. Hemoglobin A1c Reviewed date:08/21/2023 01:24:29 PM Interpretation: Performing Lab:[address] [phone] Notes/Report: Hemoglobin A1c % 8.9 <6.0 % Hemoglobin A1C Reference Range Adults: 4.8 - 6.0 % Non diabetic: < 6.0 % Goal: < 7.0 % Additional Action Suggested: > 8.0 % Note: Hemoglobin A1c results are invalid for patients with abnormal amounts of HbF. Blood transfusions may impact the HbA1c concentration in the patient sample. Estimated Average Glucose 209 eAG = Estimated average glucose which is %A1C expressed as average glucose, using the formula of the U4A-Jinmbys Average Glucose study (ADAG), Diabetes Care, Vol.31,#8, 2007 Complete Blood Count Auto Di ff Reviewed date:12/14/2023 05:48:53 PM Interpretation: Performing Lab:[address], [place] [address] Notes/Report: White Blood Count 9.1 4.8-10.8 X10*3/uL Red Blood Count 4.69 4.20-5.50 X10*6/uL Hemoglobin 12.9 12.0-16.0 g/dl Hematocrit 40.1 37.0-47.0 % Mean Corpuscular Volume 85.5 80.0-98.0 fL Mean Corpuscular Hemoglobin 27.5 27.0-33.0 pg Mean Corpuscular HGB Conc 32.2 31.0-35.0 g/dl Red Cell Distribution Width 14.1 11.0-16.0 % Platelet Count 337 160-400 X10*3/uL Mean Platelet Volume 9.1 9.4-12.3 fL Neutrophils Percent Auto 68.4 45-73 % Imm Gran Pct Auto 1.3 0.0-0.4 % Lymphocytes Percent Auto 20.4 20-40 % Monocytes Percent Auto 6.7 2-11 % Eosinophils Percent Auto 2.4 0-4 % Basophils Percent Auto 0.8 0-2 % NRBC Pct Auto 0.0 0.0-0.2 /100WBC Neutrophils Absolute Auto 6.2 2.0-8.3 x10*3/u L Imm Gran Abs Auto 0.12 0.00-0.03 X10*3/uL Lymphocytes Absolute Auto 1.9 1.2-4.9 X10*3/u L Monocytes Absolute Auto 0.6 0.1-1.2 X10*3/uL Eosinophils Absolute Auto 0.2 0.0-0.4 X10*3/u L Basophils Absolute Auto 0.1 0.0-0.2 X10*3/uL NRBC Abs Auto 0.000 0.0-0.012 X10*3/uL Comprehensive [place]. Panel Fa st Reviewed date:12/14/2023 05:48:53 PM Interpretation: Performing Lab:[facility], [address] [place] [phone] Notes/Report: Sodium 141 135-145 mmol/L Potassium 4.8 3.3-5.1 mmol/L Chloride 105 96-108 mmol/L Carbon Dioxide 27 22-29 mmol/L Anion Gap 14 12-20 Blood Urea Nitrogen 34 9-16 mg/dL Creatinine 1.22 0.5-1.4 mg/dL Estimated Glomerular Filt Rate 43 NOTE: For -Marshallese individuals, multiply the result by 1.210. Chronic Kidney Disease: Estimated GFR < 60 mL/min/1.73m2 Severe Kidney Disease: Estimated GFR < 15 mL/min/1.73m2 Glucose Fasting 146 60-99 mg/dL A fasting glucose of 126 mg/dl or greater on more than one occasion is considered diagnostic of diabetes. Calcium 9.6 8.4-10.2 mg/dL Bilirubin Total 0.3 0.0-1.0 mg/dL Aspartate Amino Transferase 17 5-31 U/L Alanine Aminotransferase 13 0-31 U/L Total Protein 7.3 6.5-8.0 g/dL Albumin Level 4.1 3.5-5.0 g/dL Alkaline Phosphatase 68 39-117 U/L Lipid Panel Reviewed date:12/14/2023 05:48:53 PM Interpretation: Performing Lab:[facility], [address] [place] [phone] Notes/Report: Triglycerides 109 <150 mg/dL Desirable Triglyceride: less than 150 mg/dL Borderline High Triglyceride 150-199 mg/dL High Triglyceride: 200-499 mg/dL Very High Triglyceride: greater than or equal to 5OO mg/dL Cholesterol 156 <200 mg/dL Desirable Cholesterol: less than 200 mg/dL Borderline High Cholesterol: 200-239 mg/dL High Cholesterol: greater than 239 mg/dL LDL Cholesterol Calculated 79 <100 mg/dL Desirable LDL: less than 100 mg/dL Near Optimal/Above Optimal LDL: 110-129 mg/dL Borderline High LDL: 130-159 mg/dL High LDL: 160-189 mg/dL Very High LDL: greater than or equal to 190 mg/dL HDL Cholesterol 56 >40 mg/dL Desirable HDL: greater than 40 mg/dL Note: This HDL assay may give artificially low results in patients with liver disease. Microalbumin, Random Reviewed date:12/14/2023 05:48:53 PM Interpretation: Performing Lab:[facility], [address] [place] [phone] Notes/Report: Creatinine Urine 82.15 Microalbumin Urine 21.0 Microalbum/Creatinine Ratio Ur 25.5 <30 ug/mg cr Albumin/Creatinine Ratio Reference Ranges: Normal: < 30 ug/mg creatinine Microalbuminuria: 30 - 300 ug/mg creatinine Clinical Albuminuria: > 300 ug/mg creatinine Hemoglobin A1c Reviewed date:12/14/2023 05:48:53 PM Interpretation: Performing Lab:[facility], [address] [place] [phone] Notes/Report: Hemoglobin A1c % 7.0 <6.0 % Hemoglobin A1C Reference Range Adults: 4.8 - 6.0 % Non diabetic: < 6.0 % Goal: < 7.0 % Additional Action Suggested: > 8.0 % Note: Hemoglobin A1c results are invalid for patients with abnormal amounts of HbF. Blood transfusions may impact the HbA1c concentration in the patient sample. Estimated Average Glucose 154 eAG = Estimated average glucose which is %A1C expressed as average glucose, using the formula of the C2S-Avrmrtp Average Glucose study (ADAG), Diabetes Care, Vol.31,#8, 2007 Complete Blood Count Auto Di ff Reviewed date:02/21/2024 05:49:30 AM Interpretation: Performing Lab:[facility], [address] [place] [phone] Notes/Report: White Blood Count 9.9 4.8-10.8 X10*3/uL Red Blood Count 4.67 4.20-5.50 X10*6/uL Hemoglobin 12.8 12.0-16.0 g/dl Hematocrit 40.3 37.0-47.0 % Mean Corpuscular Volume 86.3 80.0-98.0 fL Mean Corpuscular Hemoglobin 27.4 27.0-33.0 pg Mean Corpuscular HGB Conc 31.8 31.0-35.0 g/dl Red Cell Distribution Width 14.2 11.0-16.0 % Platelet Count 333 160-400 X10*3/uL Mean Platelet Volume 9.3 9.4-12.3 fL Neutrophils Percent Auto 69.6 45-73 % Imm Gran Pct Auto 1.0 0.0-0.4 % Lymphocytes Percent Auto 20.2 20-40 % Monocytes Percent Auto 6.3 2-11 % Eosinophils Percent Auto 1.9 0-4 % Basophils Percent Auto 1.0 0-2 % NRBC Pct Auto 0.0 0.0-0.2 /100WBC Neutrophils Absolute Auto 6.9 2.0-8.3 x10*3/u L Imm Gran Abs Auto 0.10 0.00-0.03 X10*3/uL Lymphocytes Absolute Auto 2.0 1.2-4.9 X10*3/u L Monocytes Absolute Auto 0.6 0.1-1.2 X10*3/uL Eosinophils Absolute Auto 0.2 0.0-0.4 X10*3/u L Basophils Absolute Auto 0.1 0.0-0.2 X10*3/uL NRBC Abs Auto 0.000 0.0-0.012 X10*3/uL Comprehensive [place]. Panel Fa st Reviewed date:02/21/2024 05:49:31 AM Interpretation: Performing Lab:[facility], [address] [place] [phone] Notes/Report: Sodium 140 135-145 mmol/L Potassium 4.2 3.3-5.1 mmol/L Chloride 103 96-108 mmol/L Carbon Dioxide 26 22-29 mmol/L Anion Gap 15 12-20 Blood Urea Nitrogen 35 9-16 mg/dL Creatinine 1.14 0.5-1.4 mg/dL Estimated Glomerular Filt Rate 46 NOTE: For -Marshallese individuals, multiply the result by 1.210. Chronic Kidney Disease: Estimated GFR < 60 mL/min/1.73m2 Severe Kidney Disease: Estimated GFR < 15 mL/min/1.73m2 Glucose Fasting 154 60-99 mg/dL A fasting glucose of 126 mg/dl or greater on more than one occasion is considered diagnostic of diabetes. Calcium 10.5 8.4-10.2 mg/dL Bilirubin Total 0.3 0.0-1.0 mg/dL Aspartate Amino Transferase 18 5-31 U/L Alanine Aminotransferase 16 0-31 U/L Total Protein 7.5 6.5-8.0 g/dL Albumin Level 4.2 3.5-5.0 g/dL Alkaline Phosphatase 75 39-117 U/L Lipid Panel Reviewed date:02/21/2024 05:49:31 AM Interpretation: Performing Lab:[facility], [address] [place] [phone] Notes/Report: Triglycerides 168 <150 mg/dL Desirable Triglyceride: less than 150 mg/dL Borderline High Triglyceride 150-199 mg/dL High Triglyceride: 200-499 mg/dL Very High Triglyceride: greater than or equal to 5OO mg/dL Cholesterol 167 <200 mg/dL Desirable Cholesterol: less than 200 mg/dL Borderline High Cholesterol: 200-239 mg/dL High Cholesterol: greater than 239 mg/dL LDL Cholesterol Calculated 82 <100 mg/dL Desirable LDL: less than 100 mg/dL Near Optimal/Above Optimal LDL: 110-129 mg/dL Borderline High LDL: 130-159 mg/dL High LDL: 160-189 mg/dL Very High LDL: greater than or equal to 190 mg/dL HDL Cholesterol 52 >40 mg/dL Desirable HDL: greater than 40 mg/dL Note: This HDL assay may give artificially low results in patients with liver disease. Microalbumin, Random Reviewed date:02/21/2024 05:49:31 AM Interpretation: Performing Lab:[address] [phone] Notes/Report: Creatinine Urine 111.94 Microalbumin Urine 34.0 Microalbum/Creatinine Ratio Ur 30.3 <30 ug/mg cr Albumin/Creatinine Ratio Reference Ranges: Normal: < 30 ug/mg creatinine Microalbuminuria: 30 - 300 ug/mg creatinine Clinical Albuminuria: > 300 ug/mg creatinine Hemoglobin A1c Reviewed date:02/21/2024 05:49:30 AM Interpretation: Performing Lab:[address] [phone] Notes/Report: Hemoglobin A1c % 7.0 <6.0 % Hemoglobin A1C Reference Range Adults: 4.8 - 6.0 % Non diabetic: < 6.0 % Goal: < 7.0 % Additional Action Suggested: > 8.0 % Note: Hemoglobin A1c results are invalid for patients with abnormal amounts of HbF. Blood transfusions may impact the HbA1c concentration in the patient sample. Estimated Average Glucose 154 eAG = Estimated average glucose which is %A1C expressed as average glucose, using the formula of the P6A-Telejwj Average Glucose study (ADAG), Diabetes Care, Vol.31,#8, Jan. 2007 MM tomosynthesis screening B I Reviewed date:03/23/2024 06:08:23 AM Interpretation: Performing Lab: Notes/Report: [address] [place] [address] Mammography Report Signed Patient: Pam Lowery MR#: [id number] : 1950 Acct:[id number] Age/Sex: 73 / F ADM Date: 02/20/24 Loc: NAVEED Attending Dr: Corey Sumner MD Ordering Physician: Corey Sumner MD Results: 1Negativ e Date of Service: 02/20/24 Follow Up: 1 Year From Orig ina Mammogram Procedure(s): MM tomosynthesis screening BI Accession Number(s): [id number] cc: Corey Sumner MD EXAMINATION: MM SCREENING DIGITAL BREAST TOMOSYNTHESIS, BILATERAL CLINICAL INFORMATION: Screening. Asymptomatic. COMPARISON: Mammography: Comparison is made with available priors TECHNIQUE: Digital breast tomosynthesis is performed in both the craniocaudal and mediolateral oblique views along with computer-aided detection (CAD). Synthesized 2D images are generated from the tomosynthesis. FINDINGS: There are scattered areas of fibroglandular density (ACR BI-RADS breast composition Category b). There are no significant masses, abnormal calcifications, or other abnormalities. MM/MM tomosynthesis screening BI IMPRESSION: No mammographic evidence of malignancy. ASSESSMENT: BI-RADS BI-RADS 1 - Negative RECOMMENDATION: Routine annual mammography screening. 1 year F/U This examination should not preclude the clinical evaluation of a suspicious palpable abnormality. This patient's information was entered into a reminder system with a target due date for their next mammogram. Electronically signed by: Fany Roberson DO 03/13/2024 09:11 PM EDT Dictated By: Fany Roberson DO Signed By: <Electronically signed by Fany Roberson DO in OV> 03/13/24 2111 DD/ 1030 TD/TT: 02/20/24 1052 [place]: [facility] [address] [place] [address] Mammography Report Signed Patient: Pam Lowery MR#: [id number] : 1950 Acct:[id number] Age/Sex: 73 / F ADM Date: 02/20/24 Loc: NAVEED Attending Dr: Corey Sumner MD Ordering Physician: Corey Sumner MD Results: 1Negativ e Date of Service: 02/20/24 Follow Up: 1 Year From [facility] ina Mammogram Procedure(s): MM tomosynthesis screening BI Accession Number(s): [id number] cc: Corey Sumner MD EXAMINATION: MM SCREENING DIGITAL BREAST TOMOSYNTHESIS, BILATERAL CLINICAL INFORMATION: Screening. Asymptomatic. COMPARISON: Mammography: Comparison is made with available priors TECHNIQUE: Digital breast tomosynthesis is performed in both the craniocaudal and mediolateral oblique views along with computer-aided detection (CAD). Synthesized 2D image s are generated from the tomosynthesis. FINDINGS: There are scattered areas of fibroglandular density (ACR BI-RADS breast composition Category b). There are no significant masses, abnormal calcifications, or other abnormalities. MM/MM tomosynthesis screening BI IMPRESSION: No mammographic evidence of malignancy. ASSESSMENT: BI-RADS BI-RADS 1 - Negative RECOMMENDATION: Routine annual mammography screening. 1 year F/U This examination should not preclude the clinical evaluation of a suspicious palpable abnormality. This patient's information was entered into a reminder system with a target due date for their next mammogram. Electronically everardo d by: Fany Roberson DO 03/13/2024 09:11 PM EDT Dictated By: Fany Roberson DO Signed By: <Electronically signed by Fany Roberson DO in OV> 03/13/24 2111 DD/ 1030 TD/TT: 02/20/24 1052 [place]: Reason For Referral Reason pt on trulicity eval uate and treat obesity Diagnosis 1 Controlled type 2 di abetes mellitus without complication, without long-term current use of insulin (E11.9) Diagnosis 2 Mixed hyperlipidemia (E78.2) Diagnosis 3 Obesity (BMI 30.0-34 .9) (E66.9) Referral Organization Corey Sumner III, MD Referring Provider First Name Corey Referring Provider Last Name Taisha Referring Provider Speciality Internal M edicine Referred Provider [facility] General Notes Delores Mendoza CMA 09/2023 02:25:02 PM EST > ref/demo/progess note/labs faxed to [facility] at , [facility] 08/27/2023 11:07:34 AM EST > I called [facility] they stated they did receive ref/demo and they will call patient with appt [facility] 09/05/2023 01:31:39 PM EDT > Pt was called but unable to go this month to the [facility] meeting that is on first Saturday of the months so pt has the phone number and will be calling back to schedule this when she is available Referral Priority Routine Reason Consult and Treat Right Elbow Pain Diagnosis 1 Elbow pain, right (M 25.521) Referral Organization Corey Sumner III, MD Referring Provider First Name Corey Referring Provider Last Name Taisha Referring Provider Speciality Internal M edicine Referred Provider Laura Acosta [facility] Referred Provider Specialty [facility] General Notes D Carolyn 05/18/2024 11:26:23 AM > Referral and progress note faxed., Carolyn Morales 06/11/2024 02:21:24 PM > Refaxed referral as they did not receive the referral. patient was called and notified. Patient stated that she does not want to go to [facility] as it is hard to get ahold of, patient would like for the referral to be closed. Referral Priority Routine Medications Medication SIG (Take, Route, Frequency, Duration) Notes Start Date End Date Status Pioglitazone HCl 30 MG TAKE 1 TABLET BY MOUTH EVERY DAY Active Lisinopril 40 MG TAKE 1 TABLET BY COLBY TH EVERY DAY Active Aspirin 325 MG 1 tablet Orally Once a day Active Montelukast Sodium 10 MG TAKE 1 TABLET B Y MOUTH EVERY EVENING Active hydroCHLOROthiazide 25 MG TAKE 1 TABLET BY MOUTH EVERY DAY Active Simvastatin 20 MG TAKE 1 TABLET BY COLBY TH EVERY DAY Active Spironolactone 50 MG 1 tablet Orally Onc e a day 10/19/2020 Active Alendronate Sodium 70 MG 1 tablet 30 min utes before the first food, beverage or medicine of the day with plain water Orally Active Albuterol Sulfate HFA 108 (9 0 Base) MCG/ACT 2 puffs as needed Inhalation four times a day prn wheezing 02/09/2019 Active Vitamin E 400 UNIT 1 capsule Orally Onc e a day Active Trulicity 0.75 MG/0.5ML as directed Subcutaneous once a week 08/28/2023 Active Etodolac 200 MG TAKE 1 CAPSULE BY MOUTH TWICE DAILY WITH FOOD NEEDED Active metFORMIN HCl 500 MG TAKE 2 TABLETS BY MOUTH TWICE DAILY Active Sodium Polystyrene Sulfonate 15 GM/60ML 60 ml Orally Once a day 01/11/2022 Active Immunizations Vaccine Route Administration Date Status Comme nts Zostavax Unknown 01/07/2015 Administered Influenza-iiv4 p-free high dose Unknown 04/18/2015 Admi nistered Influenza no Preserv 3 and > Unknown 05/14/2016 Adminis tered Influenza High Dose Quadrivalent Unknown 05/11/2014 Adm inistered Social History Tobacco Use: Social History Observation Description Date Details (start date - stop date) Never Smoker NA - NA Sex Assigned At : Social History Observation Description Sex Assigned At Female Tobacco Use/Smoking Question Answer Notes Patient is a nonsmoker Additional Findings: Tobacco Non-User Aggressive non-smoker Alcohol Screen Question Answer Notes Did you have a drink containing alcohol in the p ast year? No Points 0 Interpretation Negative Problems Problem Type SNOMED Code ICD Code Onset Dates Problem Status W/U Status Risk Notes Problem 084178242297983 Obesity (BMI 30.0-34.9) (E66.9) Active confirmed Her weight is stable and her body mass index is 34.5. We reviewed her weight loss strategy. We discussed modifications to lifestyle that could cause weight loss. Problem 560323055 Mixed hyperlipidemia (E78.2) Active confirmed Her total cholesterol is controlled at 167. No change in her medication was needed. Problem 46215069 Essential hypertension (I10) Active confirmed Her blood pressure is currently stable and no change in her regimen was made. I recommended aggressive weight loss and sodium restriction. Problem 73716597 Nephrolithiasis (N20.0) Active confirmed She has had no renal colic. In the last year. She will notify me if this happens. Problem 573072091 Raynauds disease without gangrene (I73.00) Active confirmed She has had only a couple of episodes and no tissue gangrene. She was advised to keep her hands warm as much as possible and to advise me if anything changes for the worse. Problem 24730247 Functional heart murmur (R01.0) Active confirmed She has had n o cardiac symptoms since her last visit. She's had no shortness of breath or chest pain. She will report these to me at once if they occur. Problem 069027506 Controlled type 2 diabetes mellitus without complication, without long-term current use of insulin (E11.9) Active confirmed She is doing well. She is compliant with her medications. Her weight is stable. Her hemoglobin A1c is 7.0. No changes in her medication were made. I strongly recommended modifications to her lifestyle including exercise and weight loss. Problem 514454292 Moderate asthma, unspecified whether complicated, unspecified whether persistent (J45.909) Active confirmed She has had no attacks of asthma recently. He has had no flareups of allergies. Her breathing was within normal limits with good air movement today. Mild occasional inspiratory wheezing was noted today in the right lung. Vital Signs Heart Rate 74 /min 02/26/2024 Temperature 97.2 degrees Fahrenheit 02/26/2024 Blood pressure diastolic 79 mm Hg 02/26/2024 Height 63 in 02/26/2024 Blood pressure systolic 140 mm Hg 02/26/2024 Weight 195 lbs 02/26/2024 BMI 34.54 kg/m2 02/26/2024 Encounters Encounter Location Date Provider Diagnosis Corey Sumner III, MD [address] [place] [address] [place] [phone] 08/21/2023 Corey Sumner Controlled type 2 diabetes mellitus without complication, without long-term current use of insulin E11.9 ; Essential hypertension I10 ; Mixed hyperlipidemia E78.2 ; Moderate asthma, unspecified whether complicated, unspecified whether persistent J45.909 and Obesity (BMI 30.0-34.9) E66.9 Corey Sumner III, MD [address] [place] [address] [place] [phone] 10/16/2023 Corey Sumner Controlled type 2 diabetes mellitus without complication, without long-term current use of insulin E11.9 ; Mixed hyperlipidemia E78.2 ; Obesity (BMI 30.0-34.9) E66.9 ; Essential hypertension I10 ; Nephrolithiasis N20.0 and Moderate asthma, unspecified whether complicated, unspecified whether persistent J45.909 Corey Sumner III, MD [address] [place] [address] [place] [address] 12/18/2023 Corey Sumner Controlled type 2 diabetes mellitus without complication, without long-term current use of insulin E11.9 ; Mixed hyperlipidemia E78.2 ; Obesity (BMI 30.0-34.9) E66.9 ; Moderate asthma, unspecified whether complicated, unspecified whether persistent J45.909 ; Essential hypertension I10 and Nephrolithiasis N20.0 Corey Sumner III, MD [address] [place] [address] [address] [place] [address] 12/25/2023 Corey Sumner Elbow pain, right M25.521 ; Essential hypertension I10 ; Nephrolithiasis N20.0 and Mixed hyperlipidemia E78.2 Corey Sumner III, MD [address] [place] [address] [address] [place] [address] 02/26/2024 Corey Sumner Controlled type 2 diabetes mellitus without complication, without long-term current use of insulin E11.9 ; Mixed hyperlipidemia E78.2 ; Obesity (BMI 30.0-34.9) E66.9 ; Nephrolithiasis N20.0 and Moderate asthma, unspecified whether complicated, unspecified whether persistent J45.909 Corey Sumner III, MD [address] [place] [address] [place] [id number] 08/28/2023 Corey Sumner III, MD [address] [place] [address] [place] [address] 08/28/2023 Corey Sumner III, MD [address] [place] [address] [address] [place] [address] 05/18/2024 Corey Sumner Assessments Encounter Date Diagnosis (ICD Code) Assessment Notes Treat ment Notes Treatment Clinical Notes 08/21/2023 Essential hypertension (ICD-10 - I10) Her blood pressure is currently stable and no change in her regimen was made. I recommended aggressive weight loss and sodium restriction. 08/21/2023 Controlled type 2 diabetes mellitus without complication, without long-term current use of insulin (ICD-10 - E11.9) She has gained back 2 pounds. Her fasting glucose is 207. The hemoglobin A1c has increased to 8.9. We have reviewed her medications diet and nutrition. We discussed the use of trulicity which she has agreed but wants to think it over. We discussed aggressive weight loss. 10/16/2023 Mixed hyperlipidemia (ICD-10 - E78.2) Her lipids have been stable. She will have a fasting lipid profile as part of a comprehensive database prior to her next visit. 10/16/2023 Controlled type 2 diabetes mellitus without complication, without long-term current use of insulin (ICD-10 - E11.9) She is getting used to the true acidity. We discussed her diet and weight and nutrition and exercise level. She will return to the office in the near future after hemoglobin A1c. 12/18/2023 Mixed hyperlipidemia (ICD-10 - E78.2) Her fasting lipid profile shows good control of her lipids which are in the normal range. No change in her regimen as needed. 12/18/2023 Controlled type 2 diabetes mellitus without complication, without long-term current use of insulin (ICD-10 - E11.9) Her fasting glucose is 146 with a Hemoglobin A1c that has improved from 8.9 down to 7.6. She has lost weight and is following her diet. 12/25/2023 Essential hypertension (ICD-10 - I10) Her blood pressure is currently stable and no change in her regimen was made. I recommended aggressive weight loss and sodium restriction. 12/25/2023 Elbow pain, right (ICD-10 - M25.521) The discomfort has completely resolved. She was advised to refrain from heavy lifting for 2 weeks and to call me once the pain returns. 02/26/2024 Mixed hyperlipidemia (ICD-10 - E78.2) Her total cholesterol is controlled at 167. No change in her medication was needed. 02/26/2024 Controlled type 2 diabetes mellitus without complication, without long-term current use of insulin (ICD-10 - E11.9) She is doing well. She is compliant with her medications. Her weight is stable. Her hemoglobin A1c is 7.0. No changes in her medication were made. I strongly recommended modifications to her lifestyle including exercise and weight loss. 08/21/2023 Mixed hyperlipidemia (ICD-10 - E78.2) Her triglycerides are elevated, but her cholesterol values within their target range. I recommended sodium restriction, weight restriction and a diet low in animal fat. 10/16/2023 Obesity (BMI 30.0-34.9) (ICD-10 - E66.9) She is coming to the office in the neear future to measure her vital signs. We have discussed a weight loss plan and strategy to lose one half of a pound per week. 12/18/2023 Obesity (BMI 30.0-34.9) (ICD-10 - E66.9) He has lost 6 pounds. We encouraged her to continue to lose weight until her body mass index is in the normal range 12/25/2023 Nephrolithiasis (ICD-10 - N20.0) She has had no renal colic. In the last year. She will notify me if this happens. 02/26/2024 Obesity (BMI 30.0-34.9) (ICD-10 - E66.9) Her weight is stable and her body mass index is 34.5. We reviewed her weight loss strategy. We discussed modifications to lifestyle that could cause weight loss. 08/21/2023 Moderate asthma, unspecified whether complicated, unspecified whether persistent (ICD-10 - J45.909) She has had no attacks of asthma recently. He has had no flareups of allergies. Her breathing was within normal limits with good air movement today. 10/16/2023 Essential hypertension (ICD-10 - I10) Her blood pressure is currently stable and no change in her regimen was made. I recommended aggressive weight loss and sodium restriction. 12/18/2023 Moderate asthma, unspecified whether complicated, unspecified whether persistent (ICD-10 - J45.909) She has had no attacks of asthma recently. He has had no flareups of allergies. Her breathing was within normal limits with good air movement today. 12/25/2023 Mixed hyperlipidemia (ICD-10 - E78.2) Her fasting lipid profile shows good control of her lipids which are in the normal range. No change in her regimen as needed. 02/26/2024 Nephrolithiasis (ICD-10 - N20.0) She has had no renal colic. In the last year. She will notify me if this happens. 08/21/2023 Obesity (BMI 30.0-34.9) (ICD-10 - E66.9) He has gained 2 pounds. We reviewed her diabetic diet. We made a plan to lose weight at a rate of one half of a pound per week through a diet restricted in calories, sodium, and concentrated sweets. 10/16/2023 Nephrolithiasis (ICD-10 - N20.0) She has had no renal colic. In the last year. She will notify me if this happens. 12/18/2023 Essential hypertension (ICD-10 - I10) Her blood pressure is currently stable and no change in her regimen was made. I recommended aggressive weight loss and sodium restriction. 02/26/2024 Moderate asthma, unspecified whether complicated, unspecified whether persistent (ICD-10 - J45.909) She has had no attacks of asthma recently. He has had no flareups of allergies. Her breathing was within normal limits with good air movement today. Mild occasional inspiratory wheezing was noted today in the right lung. 10/16/2023 Moderate asthma, unspecified whether complicated, unspecified whether persistent (ICD-10 - J45.909) She has had no attacks of asthma recently. He has had no flareups of allergies. Her breathing was within normal limits with good air movement today. 12/18/2023 Nephrolithiasis (ICD-10 - N20.0) She has had no renal colic. In the last year. She will notify me if this happens. Plan Of Treatment Pending Test Test Name Order Date PROFILE, FASTING (COMPREHENSIVE METABOLI C) 02/26/2024 PROFILE, FASTING (COMPREHENSIVE METABOLI C) 12/18/2023 PROFILE, FASTING (COMPREHENSIVE METABOLI C) 10/16/2023 PROFILE, FASTING (COMPREHENSIVE METABOLI C) 08/21/2023 CBC w DIFF 08/21/2023 MAMMOGRAM DIGITAL BILATERAL SCREEN 03/13 MAMMOGRAM DIGITAL BILATERAL SCREEN 02/21 CBC WITH AUTO DIFF 02/26/2024 CBC WITH AUTO DIFF 12/18/2023 CBC WITH AUTO DIFF 10/16/2023 Lipid Panel 08/21/2023 Lipid Panel 02/26/2024 Lipid Panel 12/18/2023 Lipid Panel 10/16/2023 Microalbumin, Random 02/26/2024 Microalbumin, Random 12/18/2023 Microalbumin, Random 10/16/2023 Hemoglobin A1c 12/18/2023 Hemoglobin A1c 10/16/2023 Hemoglobin A1c 02/26/2024 Next Appt Details Provider Name:Corey Sumner, 07/01/2024 02:00:00 PM, [address] [place] [address] [address], [place], [id number], Provider Name:Corey Sumner, 08/25/2024 02:00:00 PM, [address] [place] [address] [address], [place], [id number], Insurance Providers Payer Name Payer Address Payer Phone Subscriber Number Group Number Insured Name Patient Relationship to Insured Coverage Start Date Coverage End Date MEDICARE NGS [address] [place] [phone] [id number] Pam Lowery Self - patient is the insured [facility] [address] [place], [place] [id number] [phone] [id number] Pam Lowery Self - patient is the insured Medical (General) History Medical History History ICD Code Arthritis M19.90 Nephrolithiasis N20.0 functional heart murmur since childhood hyperlipidemia raynaud's disease adult-onset diabetes mellitus, age 57 asthma, Dr. Deon Pizano, [facility] obesity history of endocervical polyp, Dr. Duffy 1992. Fracture right ankle Surgical History Surgery Date(Month/Year) both eyelids lift 11/2018 endocervical polypectomy, [facility], Dr. Duffy 10/2017 right ankle fracture 1992 rotator cuff tear repair/ right shoulder 11/2008 Hospitalization History Reason Date(Month/Year) injured kidney 2016
[2024-06-22 09:28] LABS: MANUAL DIFF FLAG NO
[2024-06-22 09:35] LABS: Basophils Absolute Auto 0.1 X10*3/uL (0.0-0.2); Basophils Percent Auto 0.8 % (0-2); Eosinophils Absolute Auto 0.3 X10*3/uL (0.0-0.4); Eosinophils Percent Auto 2.4 % (0-4); Hematocrit 40.1 % (37.0-47.0); Hemoglobin 12.7 g/dl (12.0-16.0); Imm Gran Abs Auto 0.15 X10*3/uL (0.00-0.03); Imm Gran Pct Auto 1.4 % (0.0-0.4); Lymphocytes Absolute Auto 2.2 X10*3/uL (1.2-4.9); Lymphocytes Percent Auto 20.2 % (20-40); Mean Corpuscular HGB Conc 31.7 g/dl (31.0-35.0); Mean Corpuscular Hemoglobin 27.3 pg (27.0-33.0); Mean Corpuscular Volume 86.1 fL (80.0-98.0); Mean Platelet Volume 8.9 fL (9.4-12.3); Monocytes Absolute Auto 0.8 X10*3/uL (0.1-1.2); Neutrophils Absolute Auto 7.4 x10*3/uL (2.0-8.3); Neutrophils Percent Auto 68.2 % (45-73); Platelet Count 324 X10*3/uL (160-400); Red Blood Count 4.66 X10*6/uL (4.20-5.50); Red Cell Distribution Width 13.8 % (11.0-16.0); White Blood Count 10.8 X10*3/uL (4.8-10.8)
[2024-06-22 09:40] LABS: Estimated Average Glucose 169 mg/dL; Hemoglobin A1C 188.2956 umol/L; Hemoglobin A1c % 7.5 % (<6.0); Total Hemoglobin (HGBA1C) 3229.8843 umol/L
[2024-06-22 10:01] LABS: Alanine Aminotransferase 21 U/L (0-31); Albumin Level 4.2 g/dL (3.5-5.0); Alkaline Phosphatase 79 U/L (39-117); Anion Gap 15 (12-20); Aspartate Amino Transferase 22 U/L (5-31); Bilirubin Total 0.3 mg/dL (0.0-1.0); Blood Urea Nitrogen 32 mg/dL (9-16); Carbon Dioxide 27 mmol/L (22-29); Chloride 106 mmol/L (96-108); Cholesterol 169 mg/dL (<200); Estimated Glomerular Filt Rate 41; Glucose Fasting 156 mg/dL (60-99); HDL Cholesterol 60 mg/dL (>40); LDL Cholesterol Calculated 90 mg/dL (<100); Potassium 4.5 mmol/L (3.3-5.1); Sodium 143 mmol/L (135-145); Total Protein 7.4 g/dL (6.5-8.0); Triglycerides 97 mg/dL (<150)
[2024-06-22 10:43] LABS: Creatinine Urine 143.28 mg/dL; Microalbum/Creatinine Ratio Ur 32.8 ug/mg cr (<30)
== END 2024-06-22 09:06 | disposition home or self-care (01) ==
LOC: HO.LAB 09:05
PROVIDERS: PCP Internal Medicine Medical Oncology; Visit Provider Internal Medicine Medical Oncology
DX: E11.9 Type 2 diabetes mellitus without complications (principal); E78.2 Mixed hyperlipidemia; E66.9 Obesity, unspecified
CPT/HCPCS: 36415; 80053; 80061; 82043; 82570; 83036; 85025

== ENCOUNTER 2024-07-15 11:41 | Outpatient (REF) | payer MEDICARE, BC, SELFPAY ==
--- NOTE | ~2024-07-15 | XR_ITS ---
CLINICAL HISTORY: QUESTIONING FRACTURE AFTER FALL 3 view right elbow Comparison: None Findings: No fracture or malalignment. Mild ulnohumeral and radiocapitellar osteoarthritis. Mild calcific tendinopathy at the common flexor tendon origin. No elbow joint effusion. IMPRESSION: No acute findings. This document has been electronically signed by: Yair Nick DO on 07/16/2024 12:59:08
--- OUTSIDE RECORDS SUMMARY | 2024-07-15 13:36 | XMS_ITS ---
Author Organization Corey Sumner III, MD Address [address] [place] [address] [place] [address] Care Team Providers Care Archival Records Clerk Name Role Phone Corey Sumner Primary Care Provider Allergies Allergen (clinical drug ingredient) Drug/Non Drug Allergy documented on EMR Reaction Allergy Type Onset Date Status acetaminophen / oxycodone Percocet vomiting Drug Allergy Active codeine Codeine Sulfate vomiting Drug Allergy A ctive REASON FOR VISIT Obesity, Resolved right elbow [...] Notes Problem Arthralgia of the upper arm ([id number]) Right elbow pain (M25.521) Active confirmed The [...] Date Provider Diagnosis Corey Sumner III, MD [address] [place] [address] [place] [address] 07/01/2024 Corey Sumner Right elbow pain M25 [...] C) 07/01/2024 CBC WITH AUTO DIFF 07/01/2024 Uric Acid 07/01/2024 Lipid Panel 07/01/2024 Microalbumin, Random 07/01/2024 XR elbow RT min 3V 07/01/2024 Hemoglobin A1c 07/01/2024 Next Appt Details Follow Up: As Scheduled, [place] son: OV, Annual Exam Provider Name:Corey Sumner, 11/25/2024 02:00:00 PM, [address] [place] [address] [address], [place], [address], Progress Notes * Pam MARQUEZ AnnDOB:09/1950 (73 yo F)Acc No.[id number]:07/01/2024 Progress Notes Patient:?Pam MARQUEZ An n Provider:?Corey Sumner MD :1950???Age:73 Y???Sex:Female D ate:07/01/2024 Address:[address] [place] [address], [id number] Subjective: * Chief Complaints: * ???ObesityResolved right elb ow pain and erythemaLeft shoulder and axillary painDiabetesHypertensionHyperlipidemiaHistory of asthma * HPI: ???COVID-19 Screening:?Questions?Have you had any new onset fever, chills, cough, congestion, sore throat, shortness of breath, muscle aches??No ???:?The patient, a 73-year-old female, presented for a [...] is 154.Her hemoglobin A1c has increased from 7.0-7.5.? I have increased the dose of her true vicinity today. * ROS:?General/Constitutional:?Admits?pain,?Recent right elbow pain, Otherwise only normal aches and pains.?Chills?denies.?Fatigue?admits.?Fever?denies.?ENT:?Decreased hearing?denies.?Respiratory:?Cough?denies.?Cardiovascular:?Chest pain with exertion?denies.?Dyspnea on exertion?denies.?Shortness of breath?denies.?Gastrointestinal:?Constipation?occasional.?Decreased appetite?denies.?Diarrhea?denies.?Heartburn?denies.?Nausea?denies.?Rectal bleeding?denies.?Hematology:?bruising?denies.?petechiae?denies.?Swollen glands?none have been noted.?Genitourinary:?Frequent urination?a small amount.?Musculoskeletal:?Muscle aches?denies.?Painful joints?denies.?Sciatica?denies.?Weakness?denies.?Skin:?Itching?denies.?Rash?denies.?Skin lesion(s)?denies.?Neurologic:?Difficulty speaking?denies.?Dizziness?denies.?Headache?denies.?Low back pain?denies.?Psychiatric:?Depressed mood?denies.? * Medical History:? * Surgical History:?rotator cu ff tear repair/ right shoulder 11/2008right ankle fracture 1993endocervical polypectomy, [facility], Dr. Duffy 10/2017both eyelids lift 11/2018No history * Hospitalization/Major Diagno stic Procedure:?injured kidney 2015No history * Family History:?Father: dece ased 84 yrs, Congestive heart failure, coronary artery disease, angina, diagnosed with CVD.?Mother: 65 yrs, Hypertension, adult-onset diabetes mellitus, osteoarthritis, breast cancer, diagnosed with DM, HTN, Cancer.?Siblings: alive.?1 brother(s) , 1 sister(s) - healthy. 2 [...] grandchildren. She is retired. 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 * [...] vomitingPercocet: vomitingno[Allergies Verified] Objective: * Vitals:?Ht: 63, Wt:196, BMI: 34.72, BP:136/60, HR:82, Temp:97.3, Ht-cm: 160.02, Wt-k.9. * ???Past Orders: Lab:Hemoglobin A1c * Collection Date 06/22/2024 02/20/2024 12/12/2023 Collection Time 09:23 AM 09:43 AM 09:29 AM Order Date 06/22/2024 02/20/2024 12/12/2023 Hemoglobin A1c % 7.5?H (Ref Range: <6.0 %) 7.0?H (Ref Range: <6.0 %) 7.0?H (Ref Range: <6.0 %) Estimated Average Glucose [...] (Ref Range: 160-400 X10*3/uL) Mean Platelet Volume 8.9?L (Ref Range: 9.4-12.3 fL) 9.3?L (Ref Range: 9.4-12.3 fL) 9.1?L (Ref Range: 9.4-12.3 fL) Neutrophils Percent Auto 68.2 (Ref Range: 45-73 %) 69.6 (Ref Range: 45-73 %) 68.4 (Ref Range: 45-73 %) Imm Gran Pct Auto 1.4?H (Ref Range: 0.0-0.4 %) 1.0?H (Ref Range: 0.0-0.4 %) 1.3?H (Ref Range: 0.0-0.4 %) Lymphocytes Percent Auto [...] Range: 2.0-8.3 x10*3/uL) Imm Gran Abs Auto 0.15?H (Ref Range: 0.00-0.03 X10*3/uL) 0.10?H (Ref Range: 0.00-0.03 X10*3/uL) 0.12?H (Ref Range: 0.00-0.03 X10*3/uL) Lymphocytes Absolute Auto [...] (Ref Range: 0.0-0.012 X10*3/uL) * Lab:Radha Soriano. Edins[place] l Fast * Collection Date 06/22/2024 02/20/2024 [...] 14 (Ref Range: 12-20) Blood Urea Nitrogen 32?H (Ref Range: 9-16 mg/dL) 35?H (Ref Range: 9-16 mg/dL) 34?H (Ref Range: 9-16 mg/dL) Creatinine 1.27 (Ref Range: 0.5-1.4 mg/dL) 1.14 (Ref Range: 0.5-1.4 mg/dL) 1.22 (Ref Range: 0.5-1.4 mg/dL) Estimated Glomerular Filt Rate 41 46 43 Glucose Fasting 156?H (Ref Range: 60-99 mg/dL) 154?H (Ref Range: 60-99 mg/dL) 146?H (Ref Range: 60-99 mg/dL) Calcium 10.0 (Ref Range: 8.4-10.2 mg/dL) 10.5?H (Ref Range: 8.4-10.2 mg/dL) 9.6 (Ref Range: 8.4-10.2 mg/dL) * Lab:Lipid Panel * Collection Date 06/22/2024 02/20/2024 12/12/2023 Collection Time 09:23 AM 09:43 AM 09:29 AM Order Date 06/22/2024 02/20/2024 12/12/2023 Triglycerides 97 (Ref Range: <150 mg/dL) 168?H (Ref Range: <150 mg/dL) 109 (Ref [...] (Ref Range: mg/L) Microalbum Creatinine Ratio Ur 32.8?H (Ref Range: <30 ug/mg cr) 30.3?H (Ref Range: <30 ug/mg cr) 25.5 (Ref Range: <30 ug/mg cr) * Imaging:Diabetic Eye Exam * Performed Date 06/03/2024 Order Date 06/03/2024 05/10/2022 05/10/2023 Result: undefined Normal Normal * Examination: ???General Examination: ?GENERAL APPEARANCE:?pleasant, well nourished, well developed, in no acute distress, calm and relaxed, obese, elderly woman.?HEAD:?atraumatic, normocephalic.?EYES:?eomi, perrla, anicteric, conjugate.?EARS:?normal.?NOSE:?septum intact.?ORAL CAVITY:?normal, unremarkable.?NECK/THYROID:?no jugular venous distention, no carotid bruit, thyroid normal.?LYMPH NODES:?no enlarged lymph nodes,spleen normal.?SKIN:?no suspicious lesions, anicteric.?HEART:?no clicks, gallops, murmurs, or rubs, regular rhythm, S1, S2 normal, no s3, or vascular bruits.?LUNGS:?clear to auscultation .?BREASTS:??no masses palpable bilaterally.?ABDOMEN:?bowel sounds normal, no ascites, no organomegaly, no mass, centripital obesity.?RECTAL EXAM:?not examined.?MUSCULOSKELETAL:?extremities unremarkable, no clubbing, cyanosis or edema.?PERIPHERAL PULSES:?normal.?NEUROLOGIC:?alert and oriented, cranial nerves 2-12 grossly intact, deep tendon reflexes 2+ symmetrical, motor strength normal upper and lower extremities, sensory exam intact.?PSYCH:?alert, oriented, thought process logical, goal directed, speech clear, good eye contact, cooperative with exam, cognitive function intact.? Assessment: * Assessment: 1.?Controlled type 2 diabete s mellitus without complication, without long-term current use of insulin - E11.9 (Primary)???Notes :She is doing well. She is compliant with her medications. Her weight is stable. Her hemoglobin A1c is 7.5. I have increased the dose of the trulicity? I strongly recommended modifications to her lifestyle including exercise and weight loss.???2.?Right elbow pain - M25.521???Notes :The right elbow was normal to examination today.? The history sounds like an episode of gout.? She was instructed to come to the office at once if it recurs.? A uric acid level has been ordered.? There was no sign of abnormality in the elbow today.???3.?Obesity (BMI 30.0-34.9) - E66.9???Notes :Her weight is stable and her body mass index is 34.7. We reviewed her weight loss strategy. We discussed modifications to lifestyle that could cause weight loss.???4.?Mixed hyperlipidemia - E78.2???Notes :Her fasting lipid profile shows good control of her lipids which are in the normal range. No change in her regimen as needed.???5.?Essential hypertension - I10???Notes :Her blood pressure is currently stable and no change in her regimen was made. I recommended aggressive weight loss and sodium restriction.???6.?Moderate asthma, unspecified whether complicated, unspecified whether persistent - J45.909???Notes :She has had no attacks of asthma recently. He has had no flareups of allergies. Her breathing was within normal limits with good air movement today. Mild occasional inspiratory wheezing was noted today in the right lung.??? Plan: * Treatment: 2.?Right elbow pain?Imaging: XR elbow RT min 3V 3.?Others? Continue metFORMIN HCl Tablet, 500 MG, TAKE [...] CAPSULE BY MOUTH TWICE DAILY WITH FOOD NEEDED;?Start Trulicity Solution Auto-injector, 1.5 MG/0.5ML, as directed, Subcutaneous, weekly, 28 days, 4 Applicator, Refills 6, Notes to Pharmacist: disp 4 weeks pens and needles.?? * Labs:? * ?Lab: PROFILE, FASTING ( COMPREHENSIVE METABOLIC) ?Lab: CBC WITH AUTO DIFF ?Lab: Uric Acid ?Lab: Lipid Panel ?Lab: Microalbumin, Roberta om ?Lab: Hemoglobin A1c * Procedure Codes:? * Preventive Medicine:? ??Counseling:?Care [...] to manage diabetes without too much effort.?Treatment Goals?Blood Sugars less than < 115, HbA1C < 7.0.?Barriers?no barriers.?Self-Managment Goals?Work on weight loss, with a goal of losing 1 lb per week.? * Follow Up:?As Scheduled ([place] son: OV, Annual Exam) * Images: * Sign off status: Completed true * Provider:?Corey Sumner MD Date:?01/2025 Generated for Madelyn betts/Kenny/eTransmitting on:?07/15/2024 01:36 PM EST History and Physical Notes * HPI [...]
--- OUTSIDE RECORDS SUMMARY | 2024-07-15 13:37 | XMS_ITS | Patient Health Record ---
Author Organization Corey Sumner III, MD Address [address] [place] [address] DR [place] [address] Care Team Providers Care [employer] Crewmember Name Role Phone Corey Sumner Primary Care Provider [phone] Allergies Allergen (clinical drug ingredient) Drug/Non Drug [...] ff Reviewed date:08/21/2023 01:24:29 PM Interpretation: Performing Lab:[facility], [address] [place] [phone] Notes/Report: White Blood Count 9.1 4.8-10.8 X10*3/uL [...] NRBC Abs Auto 0.000 0.0-0.012 X10*3/uL Comprehensive [place]. Panel Fa st Reviewed date:08/21/2023 01:24:29 PM Interpretation: Performing Lab:[facility], [address] [place] [phone] Notes/Report: Sodium 142 135-145 mmol/L Potassium 5.1 3.3-5.1 mmol/L Chloride 105 96-108 mmol/L Carbon Dioxide 27 22-29 mmol/L Anion Gap 15 12-20 Blood Urea Nitrogen 32 9-16 mg/dL Creatinine 1.30 0.5-1.4 mg/dL Estimated Glomerular Filt Rate 40 NOTE: For -Panamanian individuals, multiply the result by 1.210. Chronic [...] Panel Reviewed date:08/21/2023 01:24:29 PM Interpretation: Performing Lab:[address] [phone] Notes/Report: Triglycerides 108 <150 mg/dL Desirable Triglyceride: [...] A1c Reviewed date:08/21/2023 01:24:29 PM Interpretation: Performing Lab:[address] [phone] Notes/Report: Hemoglobin A1c % 8.9 <6.0 % [...] average glucose, using the formula of the [id number] Average Glucose study (ADAG), Diabetes Care, Vol.31,#8, 2007 Complete Blood Count Auto Di ff Reviewed date:12/14/2023 05:48:53 PM Interpretation: Performing Lab:[address], [place] [address] Notes/Report: White Blood Count 9.1 4.8-10.8 X10*3/uL [...] NRBC Abs Auto 0.000 0.0-0.012 X10*3/uL Comprehensive [place]. Panel Fa st Reviewed date:12/14/2023 05:48:53 PM Interpretation: Performing Lab:[facility], [address] [place] [phone] Notes/Report: Sodium 141 135-145 mmol/L Potassium 4.8 3.3-5.1 mmol/L Chloride 105 96-108 mmol/L Carbon Dioxide 27 22-29 mmol/L Anion Gap 14 12-20 Blood Urea Nitrogen 34 9-16 mg/dL Creatinine 1.22 0.5-1.4 mg/dL Estimated Glomerular Filt Rate 43 NOTE: For -Panamanian individuals, multiply the result by 1.210. Chronic [...] Panel Reviewed date:12/14/2023 05:48:53 PM Interpretation: Performing Lab:[facility], [address] [place] [phone] Notes/Report: Triglycerides 109 <150 mg/dL Desirable Triglyceride: [...] Random Reviewed date:12/14/2023 05:48:53 PM Interpretation: Performing Lab:[facility], [address] [place] [phone] Notes/Report: Creatinine Urine 82.15 Microalbumin Urine 21.0 Microalbum/Creatinine Ratio Ur 25.5 <30 ug/mg cr Albumin/Creatinine Ratio Reference Ranges: Normal: < 30 ug/mg creatinine Microalbuminuria: 30 - 300 ug/mg creatinine Clinical Albuminuria: > 300 ug/mg creatinine Hemoglobin A1c Reviewed date:12/14/2023 05:48:53 PM Interpretation: Performing Lab:[facility], [address] [place] [phone] Notes/Report: Hemoglobin A1c % 7.0 <6.0 % [...] average glucose, using the formula of the E0U-Muslcfx Average Glucose study (ADAG), Diabetes Care, Vol.31,#8, 2007 Complete Blood Count Auto Di ff Reviewed date:02/21/2024 05:49:30 AM Interpretation: Performing Lab:[facility], [address] [place] [phone] Notes/Report: White Blood Count 9.9 4.8-10.8 X10*3/uL [...] NRBC Abs Auto 0.000 0.0-0.012 X10*3/uL Comprehensive [place]. Panel Fa st Reviewed date:02/21/2024 05:49:31 AM Interpretation: Performing Lab:[facility], [address] [place] [phone] Notes/Report: Sodium 140 135-145 mmol/L Potassium 4.2 3.3-5.1 mmol/L Chloride 103 96-108 mmol/L Carbon Dioxide 26 22-29 mmol/L Anion Gap 15 12-20 Blood Urea Nitrogen 35 9-16 mg/dL Creatinine 1.14 0.5-1.4 mg/dL Estimated Glomerular Filt Rate 46 NOTE: For -Panamanian individuals, multiply the result by 1.210. Chronic [...] Panel Reviewed date:02/21/2024 05:49:31 AM Interpretation: Performing Lab:[facility], [address] [place] [phone] Notes/Report: Triglycerides 168 <150 mg/dL Desirable Triglyceride: [...] Random Reviewed date:02/21/2024 05:49:31 AM Interpretation: Performing Lab:[address] [phone] Notes/Report: Creatinine Urine 111.94 Microalbumin Urine 34.0 Microalbum/Creatinine Ratio Ur 30.3 <30 ug/mg cr Albumin/Creatinine Ratio Reference Ranges: Normal: < 30 ug/mg creatinine Microalbuminuria: 30 - 300 ug/mg creatinine Clinical Albuminuria: > 300 ug/mg creatinine Hemoglobin A1c Reviewed date:02/21/2024 05:49:30 AM Interpretation: Performing Lab:[address] [phone] Notes/Report: Hemoglobin A1c % 7.0 <6.0 % [...] average glucose, using the formula of the R6N-Oingujm Average Glucose study (ADAG), Diabetes Care, Vol.31,#8, Jan. 2007 MM tomosynthesis screening B I Reviewed date:03/23/2024 06:08:23 AM Interpretation: Performing Lab: Notes/Report: [address] [place] [address] Mammography Report Signed Patient: Pam Lowery MR#: [id number] : 1950 Acct:[id number] Age/Sex: 73 / F ADM Date: 02/20/24 Loc: [facility] Attending Dr: Corey Sumner MD Ordering Physician: Corey Sumner MD Results: 1Negativ e Date of Service: 02/20/24 Follow Up: 1 Year From Orig ina Mammogram Procedure(s): MM tomosynthesis screening BI Accession Number(s): [id number] cc: Corey Sumner MD EXAMINATION: MM SCREENING [...] 03/13/24 2111 DD/ 1030 TD/TT: 02/20/24 1052 News Camera Operator: [facility] [address] [place] [address] Mammography Report Signed Patient: Pam Lowery MR#: [id number] : 1950 Acct:[id number] Age/Sex: 73 / F ADM Date: 02/20/24 Loc: NAVE[facility] Attending Dr: Corey Sumner MD Ordering Physician: Corey Sumner MD Results: 1Negativ e Date of Service: 02/20/24 Follow Up: 1 Year From [facility] ina Mammogram Procedure(s): MM tomosynthesis screening BI Accession Number(s): [id number] cc: Corey Sumner MD EXAMINATION: MM SCREENING [...] 03/13/24 2111 DD/ 1030 TD/TT: 02/20/24 1052 News Camera Operator: MAMMOGRAM DIGITAL BILATERAL SCREEN Reviewed date:06/26/2024 03:57:43 PM Interpretation:undefined Performing Lab: Notes/Report: undefined Diabetic Eye Exam Reviewed date:06/26/2024 03:57:09 PM Interpretation:undefined Performing Lab: Notes/Report: undefined Complete Blood Count Auto Di ff Reviewed date:06/23/2024 05:47:28 PM Interpretation: Performing Lab:[facility], [address] [place] [phone] Notes/Report: White Blood Count 10.8 4.8-10.8 X10*3/uL Red Blood Count 4.66 4.20-5.50 X10*6/uL Hemoglobin 12.7 12.0-16.0 g/dl Hematocrit 40.1 37.0-47.0 % Mean Corpuscular Volume 86.1 80.0-98.0 fL Mean Corpuscular Hemoglobin 27.3 27.0-33.0 pg Mean Corpuscular HGB Conc 31.7 31.0-35.0 g/dl Red Cell Distribution Width 13.8 11.0-16.0 % Platelet Count 324 160-400 X10*3/uL Mean Platelet Volume 8.9 9.4-12.3 fL Neutrophils Percent Auto 68.2 45-73 % Imm Gran Pct Auto 1.4 0.0-0.4 % Lymphocytes Percent Auto 20.2 20-40 % Monocytes Percent Auto 7.0 2-11 % Eosinophils Percent Auto 2.4 0-4 % Basophils Percent Auto 0.8 0-2 % NRBC Pct Auto 0.0 0.0-0.2 /100WBC Neutrophils Absolute Auto 7.4 2.0-8.3 x10*3/u L Imm Gran Abs Auto 0.15 0.00-0.03 X10*3/uL Lymphocytes Absolute Auto 2.2 1.2-4.9 X10*3/u L Monocytes Absolute Auto 0.8 0.1-1.2 X10*3/uL Eosinophils Absolute Auto 0.3 0.0-0.4 X10*3/u L Basophils Absolute Auto 0.1 0.0-0.2 X10*3/uL NRBC Abs Auto 0.000 0.0-0.012 X10*3/uL Comprehensive [place]. Panel Fa st Reviewed date:06/23/2024 05:47:28 PM Interpretation: Performing Lab:[facility], [address] [place] [phone] Notes/Report: Sodium 143 135-145 mmol/L Potassium 4.5 3.3-5.1 mmol/L Chloride 106 96-108 mmol/L Carbon Dioxide 27 22-29 mmol/L Anion Gap 15 12-20 Blood Urea Nitrogen 32 9-16 mg/dL Creatinine 1.27 0.5-1.4 mg/dL Estimated Glomerular Filt Rate 41 Chronic Kidney Disease: Estimated GFR < 60 mL/min/1.73m2 Severe Kidney Disease: Estimated GFR < 15 mL/min/1.73m2 Glucose Fasting 156 60-99 mg/dL A fasting glucose of 126 mg/dl or greater on more than one occasion is considered diagnostic of diabetes. Calcium 10.0 8.4-10.2 mg/dL Bilirubin Total 0.3 0.0-1.0 mg/dL Aspartate Amino Transferase 22 5-31 U/L Alanine Aminotransferase 21 0-31 U/L Total Protein 7.4 6.5-8.0 g/dL Albumin Level 4.2 3.5-5.0 g/dL Alkaline Phosphatase 79 39-117 U/L Lipid Panel Reviewed date:06/23/2024 05:47:28 PM Interpretation: Performing Lab:[address] [phone] Notes/Report: Triglycerides 97 <150 mg/dL Desirable Triglyceride: less than 150 mg/dL Borderline High Triglyceride 150-199 mg/dL High Triglyceride: 200-499 mg/dL Very High Triglyceride: greater than or equal to 5OO mg/dL Cholesterol 169 <200 mg/dL Desirable Cholesterol: less than 200 mg/dL Borderline High Cholesterol: 200-239 mg/dL High Cholesterol: greater than 239 mg/dL LDL Cholesterol Calculated 90 <100 mg/dL Desirable LDL: less than 100 mg/dL Near Optimal/Above Optimal LDL: 110-129 mg/dL Borderline High LDL: 130-159 mg/dL High LDL: 160-189 mg/dL Very High LDL: greater than or equal to 190 mg/dL HDL Cholesterol 60 >40 mg/dL Desirable HDL: greater than 40 mg/dL Note: This HDL assay may give artificially low results in patients with liver disease. Microalbumin, Random Reviewed date:06/23/2024 05:47:28 PM Interpretation: Performing Lab:[facility], [address] [place] [phone] Notes/Report: Creatinine Urine 143.28 Microalbumin Urine 47.0 Microalbum/Creatinine Ratio Ur 32.8 <30 ug/mg cr Albumin/Creatinine Ratio Reference Ranges: Normal: < 30 ug/mg creatinine Microalbuminuria: 30 - 300 ug/mg creatinine Clinical Albuminuria: > 300 ug/mg creatinine Hemoglobin A1c Reviewed date:06/23/2024 05:47:28 PM Interpretation: Performing Lab:[facility], [address] [place] [phone] Notes/Report: Hemoglobin A1c % 7.5 <6.0 % Hemoglobin A1C Reference Range Adults: 4.8 - 6.0 % Non diabetic: < 6.0 % Goal: < 7.0 % Additional Action Suggested: > 8.0 % Note: Hemoglobin A1c results are invalid for patients with abnormal amounts of HbF. Blood transfusions may impact the HbA1c concentration in the patient sample. Estimated Average Glucose 169 eAG = Estimated average glucose which is %A1C expressed as average glucose, using the formula of the P3U-Uapjcob Average Glucose study (ADAG), Diabetes Care, Vol.31,#8, Jan. 2007 Reason For [facility] Diagnosis 1 Controlled type 2 di abetes mellitus without complication, without long-term current use of insulin (E11.9) Diagnosis 2 Mixed hyperlipidemia (E78.2) Diagnosis 3 Obesity (BMI 30.0-34 .9) (E66.9) Referral Organization Corey Sumner III, MD Referring Provider First Name Corey Referring Provider Last Name Taisha Referring Provider [facility]erred Provider [facility] General Notes Delores Mendoza CMA 09/2023 02:25:02 PM EST > ref/demo/progess note/labs faxed to metabolic clinic at [facility] Suzanne CMA 08/27/2023 11:07:34 AM EST > I called [facility] they stated they did receive ref/demo and they will call patient with appKelly vazquez Suzanne CMA 09/05/2023 01:31:39 PM EDT > Pt was called but unable to go this month to the manatorygroup meeting that is on first Saturday of [...] Last Name Taisha Referring Provider Speciality Internal edicine Referred Provider [facility] Referred Provider [facility]ty [facility] General Notes Carolyn Morales 05/18/2024 11:26:23 AM > Referral and progress note faxed.Andrew Amber 06/11/2024 02:21:24 PM > Refaxed referral as they did not receive the referral. patient was called and notified. Patient stated that she does not want to go to [facility] as it is hard to get ahold of, patient would like for the referral to be closed. Referral Priority Routine Medications Medication SIG (Take, Route, Frequency, Duration) Notes Start Date End Date Status Aspirin 325 MG 1 tablet Orally Once a day Active Vitamin E 400 UNIT 1 capsule Orally Once a day Active Albuterol Sulfate HFA 108 (90 Base) MCG/ACT 2 puffs as needed Inhalation four times a day prn wheezing 02/09/2019 Active Alendronate Sodium 70 MG 1 tablet 30 minutes before the first food, beverage or medicine of the day with plain water Orally Active Simvastatin 20 MG TAKE 1 TABLET BY MOUTH EVERY DAY Active hydroCHLOROthiazide 25 MG TAKE 1 TABLET BY MOUTH EVERY DAY Active Montelukast Sodium 10 MG TAKE 1 TABLET B Y MOUTH EVERY EVENING Active Spironolactone 50 MG 1 tablet Orally Once a day 10/19/2020 Active metFORMIN HCl 500 MG TAKE 2 TABLETS BY MOUTH TWICE DAILY Active Sodium Polystyrene Sulfonate 15 GM/60ML 60 ml Orally Once a day 01/11/2022 Active Lisinopril 40 MG TAKE 1 TABLET BY MOUTH EVERY DAY Active Etodolac 200 MG TAKE 1 CAPSULE BY MOUTH TWICE DAILY WITH FOOD NEEDED Active Trulicity 1.5 MG/0.5ML as directed Subcutaneous weekly for 28 days disp 4 weeks pens and needles 07/01/2024 01/13/2025 Active Pioglitazone HCl 30 MG TAKE 1 TABLET BY MOUTH EVERY DAY Active Trulicity 0.75 MG/0.5ML as directed Subcutaneous once a week 08/28/2023 Active Immunizations Vaccine Route Administration Date Status [...] Problem Status W/U Status Risk Notes Problem 622568554164763 Obesity (BMI 30.0-34.9) (E66.9) Active confirmed Her weight is stable and her body mass index is 34.7. We reviewed her weight loss strategy. We discussed modifications to lifestyle that could cause weight loss. Problem 107880567 Mixed hyperlipidemia (E78.2) Active confirmed Her fasting lipid profile shows good control of her lipids which are in the normal range. No change in her regimen as needed. Problem 70945558 Essential hypertension (I10) Active confirmed Her blood pressure is currently stable and no change in her regimen was made. I recommended aggressive weight loss and sodium restriction. Problem 94690988 Nephrolithiasis (N20.0) Active confirmed She has had no renal colic. In the last year. She will notify me if this happens. Problem 040989274 Raynauds disease without gangrene (I73.00) Active confirmed She has had only a couple of episodes and no tissue gangrene. She was advised to keep her hands warm as much as possible and to advise me if anything changes for the worse. Problem Arthralgia of the upper arm (898248757) Right elbow pain (M25.521) Active confirmed The right elbow was normal to examination today. The history sounds like an episode of gout. She was instructed to come to the office at once if it recurs. A uric acid level has been ordered. There was no sign of abnormality in the elbow today. Problem 29045724 Functional heart murmur (R01.0) Active confirmed She has had n o cardiac symptoms since her last visit. She's had no shortness of breath or chest pain. She will report these to me at once if they occur. Problem 544739681 Controlled type 2 diabetes mellitus without complication, without long-term current use of insulin (E11.9) Active confirmed She is doing well. She is compliant with her medications. Her weight is stable. Her hemoglobin A1c is 7.5. I have increased the dose of the trulicity I strongly recommended modifications to her lifestyle including exercise and weight loss. Problem 691045525 Moderate asthma, unspecified whether complicated, unspecified whether persistent (J45.909) Active confirmed She has had no attacks of asthma recently. He has had no flareups of allergies. Her breathing was within normal limits with good air movement today. Mild occasional inspiratory wheezing was noted today in the right lung. Vital Signs Heart Rate 82 /min 07/01/2024 Temperature 97.3 degrees Fahrenheit 07/01/2024 Blood pressure diastolic 60 mm Hg 07/01/2024 Height 63 in 07/01/2024 Blood pressure systolic 136 mm Hg 07/01/2024 Weight 196 lbs 07/01/2024 BMI 34.72 kg/m2 07/01/2024 Encounters Encounter Location Date Provider Diagnosis Corey Sumner III, MD [address] [place] [address] [place] [id number] 08/21/2023 Corey Sumner Controlled type 2 diabetes mellitus without complication, without long-term current use of insulin E11.9 ; Essential hypertension I10 ; Mixed hyperlipidemia E78.2 ; Moderate asthma, unspecified whether complicated, unspecified whether persistent J45.909 and Obesity (BMI 30.0-34.9) E66.9 Corey Sumner III, MD [address] [place] [address] [place] [id number] 10/16/2023 Corey Sumner Controlled type 2 diabetes mellitus without complication, without long-term current use of insulin E11.9 ; Mixed hyperlipidemia E78.2 ; Obesity (BMI 30.0-34.9) E66.9 ; Essential hypertension I10 ; Nephrolithiasis N20.0 and Moderate asthma, unspecified whether complicated, unspecified whether persistent J45.909 Corey Sumner III, MD [address] [place] [address] [place] [phone] 12/18/2023 Corey Sumner Controlled type 2 diabetes mellitus without complication, without long-term current use of insulin E11.9 ; Mixed hyperlipidemia E78.2 ; Obesity (BMI 30.0-34.9) E66.9 ; Moderate asthma, unspecified whether complicated, unspecified whether persistent J45.909 ; Essential hypertension I10 and Nephrolithiasis N20.0 Corey Sumner III, MD [address] [place] [address] [place] [phone] 12/25/2023 Corey Sumner Elbow pain, right M25.521 ; Essential hypertension I10 ; Nephrolithiasis N20.0 and Mixed hyperlipidemia E78.2 Corey Sumner III, MD [address] [place] [address] [place] [id number] 02/26/2024 Corey Sumner Controlled type 2 diabetes mellitus without complication, without long-term current use of insulin E11.9 ; Mixed hyperlipidemia E78.2 ; Obesity (BMI 30.0-34.9) E66.9 ; Nephrolithiasis N20.0 and Moderate asthma, unspecified whether complicated, unspecified whether persistent J45.909 Corey Sumner III, MD [address] [place] [address] [place] [id number] 07/01/2024 Corey Sumner Right elbow pain M25 .521 ; Controlled type 2 diabetes mellitus without complication, without long-term current use of insulin E11.9 ; Obesity (BMI 30.0-34.9) E66.9 ; Mixed hyperlipidemia E78.2 ; Essential hypertension I10 and Moderate asthma, unspecified whether complicated, unspecified whether persistent J45.909 Corey Sumner III, MD [address] [place] [address] [place] [id number] 08/28/2023 Corey Sumner III, MD [address] [place] [address] [place] [id number] 08/28/2023 Corey Sumner III, MD [address] [place] [address] [place] [id number] 05/18/2024 Corey Sumner Assessments Encounter Date Diagnosis [...] lifestyle including exercise and weight loss. 07/01/2024 Right elbow pain (ICD-10 - M25.521) [...] is coming to the office in the [facility] to measure her vital signs. We have [...] lifestyle that could cause weight loss. 07/01/2024 Obesity (BMI 30.0-34.9) (ICD-10 [...] She will notify me if this happens. 07/01/2024 Mixed hyperlipidemia (ICD-10 - E78.2) Her fasting lipid profile shows good control of her lipids which are in the normal range. No change in her regimen as needed. 08/21/2023 Obesity (BMI 30.0-34.9) (ICD-10 - E66.9) [...] was noted today in the right lung. 07/01/2024 Essential hypertension (ICD-10 - I10) Her blood pressure is currently stable and no change in her regimen was made. I recommended aggressive weight loss and sodium restriction. 10/16/2023 Moderate asthma, unspecified whether complicated, unspecified whether persistent (ICD-10 - J45.909) She has had no attacks of asthma recently. He has had no flareups of allergies. Her breathing was within normal limits with good air movement today. 12/18/2023 Nephrolithiasis (ICD-10 - N20.0) She has had no renal colic. In the last year. She will notify me if this happens. 07/01/2024 Moderate asthma, unspecified whether complicated, unspecified whether persistent (ICD-10 - J45.909) She has had no attacks of asthma recently. He has had no flareups of allergies. Her breathing was within normal limits with good air movement today. Mild occasional inspiratory wheezing was noted today in the right lung. Plan Of Treatment Pending Test Test Name Order Date PROFILE, FASTING (COMPREHENSIVE METABOLI C) 07/01/2024 PROFILE, FASTING (COMPREHENSIVE METABOLI C) 02/26/2024 PROFILE, FASTING (COMPREHENSIVE METABOLI C) 12/18/2023 PROFILE, FASTING (COMPREHENSIVE METABOLI C) 10/16/2023 PROFILE, FASTING (COMPREHENSIVE METABOLI C) 08/21/2023 CBC w DIFF 08/21/2023 MAMMOGRAM DIGITAL BILATERAL SCREEN 03/13 MAMMOGRAM DIGITAL BILATERAL SCREEN 02/21 CBC WITH AUTO DIFF 07/01/2024 CBC WITH AUTO DIFF 02/26/2024 CBC WITH AUTO DIFF 12/18/2023 CBC WITH AUTO DIFF 10/16/2023 Uric Acid 07/01/2024 Lipid Panel 08/21/2023 Lipid Panel 02/26/2024 Lipid Panel 12/18/2023 Lipid Panel 07/01/2024 Lipid Panel 10/16/2023 Microalbumin, Random 02/26/2024 Microalbumin, Random 12/18/2023 Microalbumin, Random 07/01/2024 Microalbumin, Random 10/16/2023 XR elbow RT min 3V 07/01/2024 Hemoglobin A1c 12/18/2023 Hemoglobin A1c 07/01/2024 Hemoglobin A1c 10/16/2023 Hemoglobin A1c 02/26/2024 Next Appt Details Provider Name:Corey Messerne, 11/25/2024 02:00:00 PM, [address] [place] [address] [address], [place], [address], Insurance Providers Payer Name Payer Address Payer Phone Subscriber Number Group Number Insured Name Patient Relationship to Insured Coverage Start Date Coverage End Date MEDICARE NGS [address] [place] [phone] [id number] Pam Lowery Self - patient is the insured [facility] [address] [place], [place] [id number] Pam Lowery Self - patient is the insured Medical (General) History Medical History History ICD Code Arthritis M19.90 Nephrolithiasis N20.0 functional heart murmur since childhood hyperlipidemia raynaud's disease adult-onset diabetes mellitus, age 57 asthma, Dr. Deon Pizano, [facility] obesity history of endocervical polyp, Dr. Duffy 1992. Fracture right ankle Surgical History Surgery Date(Month/Year) rotator cuff tear repair/ right shoulder 11/2008 right ankle fracture 1992 endocervical polypectomy, [facility], Dr. Duffy 10/2017 both eyelids lift 11/2018 No history Hospitalization History Reason Date(Month/Year) injured kidney 2015 No history
--- OUTSIDE RECORDS SUMMARY | 2024-07-15 13:37 | XMS_ITS ---
Author Organization Corey Sumner III, MD Address [address] [place] [address] Care Team Providers Care Toll Test Worker Name Role Phone Corey Sumner Primary Care Provider Reason For Referral Reason Consult and Treat Right Elbow Pain Diagnosis 1 Elbow pain, right (M 25.521) Referral Organization Corey Sumner III, MD Referring Provider First Name Corey Referring Provider Last Name Taisha Referring Provider Speciality Internal M edicine Referred Provider [place] Referred Provider Specialty Orthopedic S urgery General Notes DCarolyn 05/18/2024 11:26:23 AM > Referral and progress note faxed., Carolyn Morales 06/11/2024 02:21:24 PM > Refaxed referral as they did not receive the referral. patient was called and notified. Patient stated that she does not want to go to [facility] as it is hard to get ahold of, patient would like for the referral to be closed. Referral Priority Routine REASON FOR VISIT Needs Referral Social History Sex Assigned At : Social History Observation Description Sex Assigned At Female Encounters Encounter Location Date Provider Diagnosis Corey Sumner III, MD [address] [place] [address] [place] [address] 05/18/2024 Corey Sumner Plan Of Treatment Referrals Referral Date Details 05/18/2024 05/18/2024, Consult and Treat Right Elbow Pain, [facility] [place] Next Appt Details Provider Name:Corey Sumner, 11/25/2024 02:00:00 PM, [address] [place] [address] [place], [address], Progress Notes * Pam MARQUEZ AnnDOB:09/1950 (73 yo F)Acc No.[id number]:05/18/2024 Patient:?Pam MARQUEZ :1950???Age:73 Y???Sex:Female Address:[address] [place] [address], [place], [address] Subjective: * Chief Complaints: * ???Needs Referral * Medical History:? * Surgical History:? * Hospitalization/Major Diagno stic Procedure:? * Medications:? Objective: * Vitals:? * Physical Examination:? Assessment: Plan: * Treatment: * Procedure Codes:? * true * Date:? Generated for Madelyn betts/Kenny/Linasmitting on:?07/15/2024 01:36 PM EST Consultation Request Notes Referral Date Referring Provider Referred Provider Geovany bahena 05/18/2024 Corey Sumner, [facility] Consult and Treat Right Elbow Pain
--- OUTSIDE RECORDS SUMMARY | 2024-07-15 13:37 | XMS_ITS ---
Author Organization Coery Sumner III, MD Address [address] [place] [address] [place] [address] Care Team Providers Care Lead Pourer Name Role Phone Corey Sumner Primary Care [...] Date Provider Diagnosis Corey Sumner III, MD [address] [place] [address] [place] [address] 02/26/2024 Corey Sumner Controlled type 2 diabetes [...] 4 Months, Reason: OV Provider Name:Corey Sumner, 11/25/2024 02:00:00 PM, [address] [place] [address] DR [facility] Sean, [place], [address], Progress Notes * Pam MARQUEZB:09/1950 (73 yo F)Acc No.[id number]:02/26/2024 Progress Notes Patient:?Pam Marquez Provider:?Corey Sumner MD :1950???Age:73 Y???Sex:Female D ate:02/26/2024 Address:[address] [place] [address], [id number] Subjective: * Chief Complaints: * ???Type 2 [...] right shoulder 11/2008right ankle fracture 1993endocervical polypectomy, [facility], Dr. Duffy 10/2017both eyelids lift 11/2018 [...] grandchildren. She is retired. 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 * Medications:?TakingmetFORMIN HCl [...] 65 (Ref Range: >40 mg/dL) * Lab:[facility] [place] * Order Date 02/20/2024 [...] * Provider:?Corey Sumner MD Date:?09/2023 Generated for Madelyn betts/Kenny/Rajwinder on:?07/15/2024 01:37 PM EST History and Physical Notes * HPI (History of Present Illness) Category Sub-Category Detail Notes COVID-19 Screening Questions Have you had any new onset fever, chills, cough, congestion, sore throat, shortness of breath, muscle aches?: No Have you been exposed to the virus withi n the last 10 days?: No Have you travelled internationally in last 10 days?: No Have you been [...]
== END 2024-07-15 11:42 | disposition home or self-care (01) ==
LOC: HO.XRAY 11:41
PROVIDERS: PCP Internal Medicine Medical Oncology; Visit Provider Internal Medicine Medical Oncology
DX: M25.521 Pain in right elbow (principal)
CPT/HCPCS: 73080

== ENCOUNTER → 2024-07-15 11:48 | Outpatient (BNV) | payer MEDICARE, BC, SELFPAY | PROVIDERS: PCP Internal Medicine Medical Oncology; Visit Provider Radiology Diagnostic Radiology | DX: M25.521 Pain in right elbow (principal) | CPT/HCPCS: 73080 ==

== ENCOUNTER 2024-11-18 08:59 | Outpatient (REF) | payer MEDICARE, BC, SELFPAY ==
[2024-11-18 09:22] LABS: MANUAL DIFF FLAG NO
--- OUTSIDE RECORDS SUMMARY | 2024-11-18 09:27 | XMS_ITS ---
Author Organization Corey Sumner III, MD Address [address] [place] [address] [place] [address] Care Team Providers Care Drywall Applicator Name Role Phone Corey Sumner Primary Care Provider Reason For Referral Reason Consult and Treat Right Elbow Pain Diagnosis 1 Elbow pain, right (M 25.521) Referral Organization Corey Sumner III, MD Referring Provider First Name Corey Referring Provider Last Name Taisha Referring Provider Speciality Internal M edicine Referred Provider [place] ([place]) Referred Provider Specialty Orthopedic S urgery General Notes DCarolyn 05/18/2024 11:26:23 AM > Referral and progress note faxed., Carolyn Morales 06/11/2024 02:21:24 PM > Refaxed referral as they did not receive the referral. patient was called and notified. Patient stated that she does not want to go to [facility] as it is hard to get ahold of, patient would like for the referral to be closed. Referral Priority Routine REASON FOR VISIT Needs Referral Social History Sex Assigned At : Social History Observation Description Sex Assigned At Female Encounters Encounter Location Date Provider Diagnosis Corey Sumner III, MD [address] [place] [address] [place] [address] 05/18/2024 Corey Sumner Plan Of Treatment Referrals Referral Date Details 05/18/2024 05/18/2024, Consult and Treat Right Elbow Pain, [facility] ([place] [place] Next Appt Details Provider Name:Corey Sumner, 11/25/2024 02:00:00 PM, [address] [place] [address] [place], [address], Progress Notes * Pam MARQUEZ AnnDOB:09/1950 (73 yo F)Acc No.[id number]:05/18/2024 Patient:Pam FAULKNER :1950???Age:73 Y???Sex:Female Address:[address] [place] [address], [place], [address] Subjective: * Chief Complaints: * ???Needs Referral * Medical History:? * Surgical History:? * Hospitalization/Major Diagno stic Procedure:? * Medications:? Objective: * Vitals:? * Physical Examination:? Assessment: Plan: * Treatment: * Procedure Codes:? * true * Date:? Generated for Madelyn betts/Kenny/eTransmitting on:?11/18/2024 09:26 AM EDT Consultation Request Notes Referral Date Referring Provider Referred Provider Geovany bahena 05/18/[address] [facility] Consult and Treat Right Elbow Pain
[2024-11-18 09:40] LABS: Basophils Absolute Auto 0.1 X10*3/uL (0.0-0.2); Basophils Percent Auto 0.9 % (0-2); Eosinophils Absolute Auto 0.3 X10*3/uL (0.0-0.4); Eosinophils Percent Auto 3.2 % (0-4); Hematocrit 41.7 % (37.0-47.0); Hemoglobin 13.1 g/dl (12.0-16.0); Imm Gran Abs Auto 0.11 X10*3/uL (0.00-0.03); Imm Gran Pct Auto 1.2 % (0.0-0.4); Lymphocytes Absolute Auto 2.2 X10*3/uL (1.2-4.9); Mean Corpuscular HGB Conc 31.4 g/dl (31.0-35.0); Mean Corpuscular Hemoglobin 27.2 pg (27.0-33.0); Mean Corpuscular Volume 86.5 fL (80.0-98.0); Mean Platelet Volume 9.1 fL (9.4-12.3); Monocytes Absolute Auto 0.7 X10*3/uL (0.1-1.2); Neutrophils Absolute Auto 6.1 x10*3/uL (2.0-8.3); Neutrophils Percent Auto 64.7 % (45-73); Platelet Count 321 X10*3/uL (160-400); Red Blood Count 4.82 X10*6/uL (4.20-5.50); Red Cell Distribution Width 13.6 % (11.0-16.0); White Blood Count 9.4 X10*3/uL (4.8-10.8)
[2024-11-18 09:47] LABS: Estimated Average Glucose 160 mg/dL; Hemoglobin A1C 192.4768 umol/L; Hemoglobin A1c % 7.2 % (<6.0); Total Hemoglobin (HGBA1C) 3485.7674 umol/L
[2024-11-18 10:35] LABS: Alanine Aminotransferase 19 U/L (0-31); Albumin Level 4.4 g/dL (3.5-5.0); Alkaline Phosphatase 77 U/L (39-117); Anion Gap 15 (12-20); Aspartate Amino Transferase 20 U/L (5-31); Bilirubin Total 0.3 mg/dL (0.0-1.0); Blood Urea Nitrogen 27 mg/dL (9-16); Calcium 10.1 mg/dL (8.4-10.2); Carbon Dioxide 27 mmol/L (22-29); Chloride 104 mmol/L (96-108); Cholesterol 165 mg/dL (<200); Estimated Glomerular Filt Rate 48; Glucose Fasting 149 mg/dL (60-99); HDL Cholesterol 55 mg/dL (>40); LDL Cholesterol Calculated 85 mg/dL (<100); Potassium 4.5 mmol/L (3.3-5.1); Sodium 141 mmol/L (135-145); Total Protein 7.5 g/dL (6.5-8.0); Triglycerides 126 mg/dL (<150)
[2024-11-18 11:02] LABS: Microalbum/Creatinine Ratio Ur 41.4 ug/mg cr (<30)
[2024-11-18 17:44] LABS: Uric Acid 7.4 mg/dL (2.4-5.7)
== END 2024-11-18 09:00 | disposition home or self-care (01) ==
LOC: HO.LAB 08:59
PROVIDERS: PCP Internal Medicine Medical Oncology; Visit Provider Internal Medicine Medical Oncology
DX: I10 Essential (primary) hypertension (principal); E78.2 Mixed hyperlipidemia; E11.9 Type 2 diabetes mellitus without complications
CPT/HCPCS: 36415; 80053; 80061; 82043; 82570; 83036; 84550; 85025

== ENCOUNTER 2024-11-25 15:01 | Outpatient (REF) | payer MEDICARE, BC, SELFPAY ==
--- NOTE | ~2024-11-25 | XR_ITS ---
EXAMINATION: XR ANKLE 2 VIEWS RIGHT HISTORY: PAIN COMPARISON: There are no prior studies available for comparison. FINDINGS: Three views of the right ankle are submitted. Osseous mineralization is normal. There is evidence of prior internal fixation of the distal fibula. There is no acute fracture or dislocation. There is severe degenerative change of the tibiotalar joint with joint space narrowing and osteophyte formation. There is diffuse mild soft tissue swelling. XR/XR ankle RT 2V IMPRESSION: Severe osteoarthritis of the tibiotalar articulation. Electronically signed by: Corey Pham MD 11/26/2024 09:53 AM EDT
--- OUTSIDE RECORDS SUMMARY | 2024-11-25 15:12 | XMS_ITS ---
Author Organization Corey Sumner III, MD Address [address] [place] [address] Care Team Providers Care Rat Exterminator Name Role Phone Corey Sumner Primary Care Provider Allergies Allergen (clinical drug ingredient) Drug/Non Drug Allergy documented on EMR Reaction Allergy Type Onset Date Status acetaminophen / oxycodone Percocet vomiting Drug Allergy Active codeine Codeine Sulfate vomiting Drug Allergy A ctive Reason For Referral Reason Evaluate and Treat Right ankle pain Diagnosis 1 Right ankle pain (M2 5.571) Referral Organization Corey Sumner III, MD Referring Provider First Name Corey Referring Provider Last Name Taisha Referring Provider Speciality Internal M edicine [facility] Referred Provider Specialty Orthopedic S urgery Referral Priority Routine REASON FOR VISIT annual [...] day 01/11/2022 Active Albuterol Sulfate HFA 108 (90 Base) MCG/ACT 2 puffs as needed Inhalation four times a day prn wheezing 02/09/2019 Active Trulicity 1.5 MG/0.5ML 0.5ml once a week Subcutaneous weekly Active Aspirin 325 MG 1 tablet Orally Once a day Active Alendronate Sodium 70 MG 1 tablet 30 min utes before the first food, beverage or medicine of the day with plain water Orally Not-Taking Vitamin E 400 UNIT 1 capsule Orally Once a day Active Social History Tobacco Use: Social History [...] ast year? No Points 0 Interpretation Negative Vital Signs Temperature 98.9 degrees Fahrenheit 11/26/19 25 Blood pressure systolic 176 mm Hg 11/26/19 25 Blood pressure diastolic 110 mm Hg 025 Heart Rate 84 /min 11/25/2024 Height 63 in 11/25/2024 Weight 198 lbs 11/25/2024 BMI 35.07 kg/m2 11/25/2024 Encounters Encounter Location Date Provider Diagnosis Corey Sumner III, MD [address] [place] [address] [place] [id number] 11/25/2024 Corey Sumner Controlled type 2 diabetes mellitus without complication, without long-term current use of insulin E11.9 ; Mixed hyperlipidemia E78.2 ; Obesity (BMI 30.0-34.9) E66.9 and Ankle pain M25.579 Assessments Encounter Date Diagnosis (ICD Code) Assessment Notes Treat ment Notes Treatment Clinical Notes 11/25/2024 Controlled type 2 diabetes mellitus without complication, without long-term current use of insulin (ICD-10 - E11.9) 11/25/2024 Mixed hyperlipidemia (ICD-10 - E78.2) 11/25/2024 Obesity (BMI 30.0-34.9) (ICD-10 - E66.9) 11/25/2024 Ankle pain (ICD-10 - M25.579) Plan Of Treatment Medication Medication Name Sig [...] 1 capsule Orally Onc e a day Pending Test Test Name Order Date PROFILE, FASTING (COMPREHENSIVE METABOLI C) 11/25/2024 CBC w DIFF 11/25/2024 Lipid Panel 11/25/2024 XR ankle RT 2V 11/25/2024 Hemoglobin A1c 11/25/2024 Referrals Referral Date Details 11/25/2024 11/25/2024, Evaluate and Treat Right ankle pain, Orthopedic Surgeons [facility] Next Appt Details Follow Up: 4 Months, Reason: OV Provider Name:Corey Sumner, 03/31/2025 02:30:00 PM, [address] [place] [address] [address], [place], [id number], Provider Name:Corey Sumner, 11/29/2025 02:00:00 PM, [address] [place] [address] [address], [facility] [place], [id number], Progress Notes * Pam MARQUEZ AnnDOB:09/1950 (74 yo F)Acc No.[id number]:11/25/2024 Progress Notes Patient:?Pam MARQUEZ An n Provider:?Corey Sumner MD :1950???Age:74 Y???Sex:Female D ate:11/25/2024 Address:[address] [place] [address], [facility] [place], [id number] Subjective: * Chief Complaints: * ???1. Annual exam. * HPI: ???Depression Screening:?ankles bother her, pain r ankle to rom, trace edema bilat. pollen ok breathing not terrible, r eye aden, stopped alendronate too awkard. ?PHQ-9?Little interest or pleasure in doing things?Not at all ?Feeling down, depressed, or hopeless?Not at all ?Trouble falling or staying asleep, or sleeping too much?Several days ?Feeling tired or having little energy?Several days ?Poor appetite or overeating?Several days ?Feeling bad about yourself or that you are a failure, or have let yourself or your family down?Not at all ?Trouble concentrating on things, such as reading the newspaper or watching television?Not at all ?Moving or speaking so slowly that other people could have noticed; or the opposite, being so fidgety or restless that you have been moving around a lot more than usual?Not at all ?Thoughts that you would be better off or of hurting yourself in some way?Not at all ?Total Score?3 ?Interpretation?Minimal Depression ???COVID-19 Screening:?Questions?Have you had any new onset fever, chills, cough, congestion, sore throat, shortness of breath, muscle aches??No ???SDOH Questions:?SDOH Questions?In the past year have you been worried about losing your housing??Yes ?In the past year have you or any family members you live with been unable to get any of the following when it was really needed? Check all that apply:?None ???Fall Risk Screening:?Fall History?Have you had any falls with injury in the past year??No ?Have you had two or more falls in the past year??No ?Fall Risk Assessment:?One fall with injury in the past year * ROS:?General/Constitutional:?pain?only normal aches and pains.?Chills?denies.?Fatigue?admits.?Fever?denies.?ENT:?Decreased hearing?denies.?Respiratory:?Cough?denies.?Cardiovascular:?Chest pain with exertion?denies.?Dyspnea on exertion?denies.?Shortness of breath?denies.?Gastrointestinal:?Constipation?denies.?Decreased appetite?denies.?Diarrhea?denies.?Heartburn?denies.?Nausea?denies.?Rectal bleeding?denies.?Vomiting?denies.?Hematology:?bruising?denies.?petechiae?denies.?Swollen glands?none have been noted.?Genitourinary:?Frequent urination?denies.?Musculoskeletal:?Muscle aches?denies.?Painful joints?denies.?Sciatica?denies.?Weakness?denies.?Skin:?Itching?denies.?Rash?denies.?Skin lesion(s)?denies.?Neurologic:?Difficulty speaking?denies.?Dizziness?denies.?Headache?denies.?Low back pain?denies.?Psychiatric:?Depressed mood?denies.? * Medical History:?Arthritis, Nephrolithiasis, Functional heart murmur since childhood, Hyperlipidemia, Raynaud's disease, Adult-onset diabetes mellitus, age 57, asthma, Dr. Deon Pizano, [facility], Obesity, history of endocervical polyp, Dr. Duffy, 1992. Fracture right ankle. * Surgical History:?rotator cu ff tear repair/ right shoulder 11/2008, right ankle fracture 1992, endocervical polypectomy, [facility], Dr. Duffy 10/2017, both eyelids lift 11/2018, No history . * Hospitalization/Major Diagno stic Procedure:?injured kidney 2015, No history . * Family History:?Father: dece ased 84 yrs, [...] or substance abuse. * Social History:?Tobacco Use:?Tobacco Control (Standard)?Tobacco use:?Nonsmoker ?Additional Findings: Tobacco non-user?Aggressive nonsmoker ???Drugs/Alcohol:?Drugs?Have you used drugs other than those for medical reasons in the past 12 months??No ???Drug/Alcohol:?AUDIT-C (Standard)?Did you have a drink containing alcohol in the past year??No ?Points?0 ?Interpretation?Negative ???She has been to Don for 48 years. She has 2 children and he has one child. They have one child together. Bertrand has had a DVT. Fiona has osteoarthritis and diabetes mellitus. Karen had a myocardial infarction at age 41. They have 7 grandchildren. She is retired. 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 * Medications:?Taking Trulicit y 1.5 MG/0.5ML Solution Auto-injector 0.5ml once a week Subcutaneous weekly , Taking Aspirin 325 MG Tablet 1 tablet Orally Once a day , Taking Vitamin E 400 UNIT Capsule 1 capsule Orally Once a day , Taking Albuterol Sulfate HFA 108 (90 Base) MCG/ACT Aerosol Solution 2 puffs as needed Inhalation four times a day prn wheezing , Taking Spironolactone 50 MG Tablet 1 tablet Orally Once a day , Taking Sodium Polystyrene Sulfonate 15 GM/60ML Suspension 60 ml Orally Once a day , Taking Etodolac 200 MG Capsule TAKE 1 CAPSULE BY MOUTH TWICE DAILY WITH FOOD NEEDED , Taking Pioglitazone HCl 30 MG Tablet TAKE 1 TABLET BY MOUTH EVERY DAY Orally Once a day , Taking Simvastatin 20 MG Tablet TAKE 1 TABLET BY MOUTH EVERY DAY , Taking Lisinopril 40 MG Tablet TAKE 1 TABLET BY MOUTH EVERY DAY , Taking metFORMIN HCl 500 MG Tablet TAKE 2 TABLETS BY MOUTH TWICE DAILY , Taking hydroCHLOROthiazide 25 MG Tablet TAKE 1 TABLET BY MOUTH EVERY DAY , Taking Montelukast Sodium 10 MG Tablet TAKE 1 TABLET BY MOUTH EVERY EVENING , Not-Taking/PRN Alendronate Sodium 70 MG Tablet 1 tablet 30 minutes before the first food, beverage or medicine of the day with plain water Orally , Medication List reviewed and reconciled with the patient * Allergies:?Codeine Sulfate: vomiting, Percocet: vomiting. Objective: * Vitals:?Ht: 63, Wt:198, BMI: 35.07, BP:176/110, HR:84, Temp:98.9, Ht-cm: 160.02, Wt-k.81. * ???Past Orders: Lab:Complete Blood Count Aut o Diff [...] (Ref Range: 160-400 X10*3/uL) Mean Platelet Volume 9.1?L (Ref Range: 9.4-12.3 fL) 8.9?L (Ref Range: 9.4-12.3 fL) 9.3?L (Ref Range: 9.4-12.3 fL) Neutrophils Percent Auto 64.7 (Ref Range: 45-73 %) 68.2 (Ref Range: 45-73 %) 69.6 (Ref Range: 45-73 %) Imm Gran Pct Auto 1.2?H (Ref Range: 0.0-0.4 %) 1.4?H (Ref Range: 0.0-0.4 %) 1.0?H (Ref Range: 0.0-0.4 %) Lymphocytes Percent Auto [...] Range: 2.0-8.3 x10*3/uL) Imm Gran Abs Auto 0.11?H (Ref Range: 0.00-0.03 X10*3/uL) 0.15?H (Ref Range: 0.00-0.03 X10*3/uL) 0.10?H (Ref Range: 0.00-0.03 X10*3/uL) Lymphocytes Absolute Auto [...] 0.000 (Ref Range: 0.0-0.012 X10*3/uL) * Examination: ???General Examination: ?GENERAL APPEARANCE:?pleasant, well nourished, well developed, in no acute distress, calm and relaxed.?HEAD:?atraumatic, normocephalic.?EYES:?eomi, perrla, anicteric, conjugate.?EARS:?normal.?NOSE:?septum intact.?ORAL CAVITY:?normal, unremarkable.?NECK/THYROID:?no [...] without long-term current use of insulin - E11.9???2.?Mixed hyperlipidemia - E78.2???3.?Obesity (BMI 30.0-34.9) - E66.9???4.?Ankle pain - M25.579??? Plan: * Treatment: 2.?Mixed hyperlipidemia?LAB: PROFILE, FASTING (COMPREHENSIVE METABOLIC) ?LAB: CBC w DIFF ?LAB: Lipid Panel ?LAB: Hemoglobin A1c 3.?Obesity (BMI 30.0-34.9)?LAB: PROFILE, FASTING (COMPREHENSIVE METABOLIC) ?LAB: CBC w DIFF ?LAB: Lipid Panel ?LAB: Hemoglobin A1c 4.?Ankle pain?Imaging: XR ankle RT 2V 5.?Others? Continue Trulicity Solution Auto-injector, 1.5 MG/0.5ML, 0.5ml once a week, Subcutaneous, weekly;?Continue Aspirin Tablet, 325 MG, 1 tablet, Orally, Once a day;?Continue Vitamin E Capsule, 400 UNIT, 1 capsule, Orally, Once a day;?Continue Albuterol Sulfate HFA Aerosol Solution, 108 (90 Base) MCG/ACT, 2 puffs as needed, Inhalation, four times a day prn wheezing;?Continue Spironolactone Tablet, 50 MG, 1 tablet, Orally, Once a day;?Continue Sodium Polystyrene Sulfonate Suspension, 15 GM/60ML, 60 ml, Orally, Once a day;?Continue Etodolac Capsule, 200 MG, TAKE 1 CAPSULE BY MOUTH TWICE DAILY WITH FOOD NEEDED;?Continue Pioglitazone HCl Tablet, 30 MG, TAKE 1 TABLET BY MOUTH EVERY DAY, Orally, Once a day;?Continue Simvastatin Tablet, 20 MG, TAKE 1 TABLET BY MOUTH EVERY DAY;?Continue Lisinopril Tablet, 40 MG, TAKE 1 TABLET BY MOUTH EVERY DAY;?Continue metFORMIN HCl Tablet, 500 MG, TAKE 2 TABLETS BY MOUTH TWICE DAILY;?Continue hydroCHLOROthiazide Tablet, 25 MG, TAKE 1 TABLET BY MOUTH EVERY DAY;?Continue Montelukast Sodium Tablet, 10 MG, TAKE 1 TABLET BY MOUTH EVERY EVENING.? Referral To:[facility] Surgeons [facility]??Orthopedic Surgery ?Reason:Evaluate and Treat Right ankle pain * Preventive Medicine:? ??Counseling:?Care goal follow-up plan:?Counseling [...] done: Medical or Other reason not done * Follow Up:?4 Months (Reason: OV) * Images: * The named appointment provid er may or may not be the originator of this progress note, and it is not deemed complete until electronically signed by the appointment provider. Sign off status: Pending * Provider:?Corey Sumner MD Date:?09/2024 Generated for Madelyn betts/Kenny/Rajwinder on:?11/25/2024 03:12 PM EDT History and Physical Notes * HPI [...] had two or more falls in the st year?: No Fall Risk Assessment:: One [...] in no acute distress, calm and relaxed HEAD: atraumatic, normocep halic EYES: eomi, perrla, [...] Referral Date Referring Provider Referred Provider Not es 11/25/2024 Taisha [facility], Orthopedic Surgeons Evaluate and Treat Right ankle pain
== END 2024-11-25 15:02 | disposition home or self-care (01) ==
LOC: HO.XRAY 15:01
PROVIDERS: PCP Internal Medicine Medical Oncology; Visit Provider Internal Medicine Medical Oncology
DX: M25.571 Pain in right ankle and joints of right foot (principal)
CPT/HCPCS: 73600

== ENCOUNTER → 2024-11-25 15:25 | Outpatient (BNV) | payer MEDICARE, BC, SELFPAY | PROVIDERS: PCP Internal Medicine Medical Oncology; Visit Provider Radiology Diagnostic Radiology | DX: M19.071 Primary osteoarthritis, right ankle and foot (principal) | CPT/HCPCS: 73600 ==

== ENCOUNTER 2025-03-25 08:47 | Outpatient (REF) | payer MEDICARE, BC, SELFPAY ==
--- OUTSIDE RECORDS SUMMARY | 2024-02-26 10:00 | XMS_ITS ---
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 Corey Sumner III Primary Care Provider Allergies Allergen (clinical drug ingredient) Drug/Non Drug Allergy documented on EMR Reaction Allergy Type Onset Date Status acetaminophen / oxycodone Percocet vomiting Drug Allergy Active codeine Codeine Sulfate vomiting Drug Allergy A ctive REASON FOR VISIT Type 2 diabetes, Hypertension, Hyperlipidemia, Asthma, Obesity, Nephrolithiasis Medications Medication SIG (Take, Route, Frequency, Duration) Notes Start Date End Date Status Spironolactone 50 MG 1 tablet Orally Onc e a day 10/19/2020 Active Alendronate Sodium 70 MG 1 tablet 30 min utes before the first food, beverage or medicine of the day with plain water Orally Active Trulicity 0.75 MG/0.5ML as directed Subcutaneous once a week 08/28/2023 Active Etodolac 200 MG TAKE 1 CAPSULE BY MOUTH TWICE DAILY WITH FOOD NEEDED Active Sodium Polystyrene Sulfonate 15 GM/60ML 60 ml Orally Once a day 01/11/2022 Active Aspirin 325 MG 1 tablet Orally Once a day Active Montelukast Sodium 10 MG TAKE 1 TABLET B Y MOUTH EVERY EVENING Active hydroCHLOROthiazide 25 MG TAKE 1 TABLET BY MOUTH EVERY DAY Active Albuterol Sulfate HFA 108 (9 0 Base) MCG/ACT 2 puffs as needed Inhalation four times a day prn wheezing 02/09/2019 Active Vitamin E 400 UNIT 1 capsule Orally Onc e a day Active Pioglitazone HCl 30 MG TAKE 1 TABLET BY MOUTH EVERY DAY Active Lisinopril 40 MG TAKE 1 TABLET BY COLBY TH EVERY DAY Active Simvastatin 20 MG TAKE 1 TABLET BY COLBY TH EVERY DAY Active metFORMIN HCl 500 MG TAKE 2 TABLETS BY MOUTH TWICE DAILY Active Social History Tobacco Use: Social History Observation Description Date Details (start date - stop date) Never Smoker NA - NA Sex Assigned At : Social History Observation Description Sex Assigned At Female Tobacco Use/Smoking Question Answer Notes Patient is a nonsmoker Additional Findings: Tobacco Non-User Aggressive non-smoker Vital Signs Temperature 97.2 degrees Fahrenheit 02/26/20 24 Blood pressure systolic 140 mm Hg 02/26/20 24 Blood pressure diastolic 79 mm Hg 024 Heart Rate 74 /min 02/26/2024 Height 63 in 02/26/2024 Weight 195 lbs 02/26/2024 BMI 34.54 kg/m2 02/26/2024 Encounters Encounter Location Date Provider Diagnosis Corey Sumner III, MD [address] [place] [address] [place] [address] 02/26/2024 Corey Sumner Controlled type 2 diabetes mellitus without complication, without long-term current use of insulin E11.9 ; Mixed hyperlipidemia E78.2 ; Obesity (BMI 30.0-34.9) E66.9 ; Nephrolithiasis N20.0 and Moderate asthma, unspecified whether complicated, unspecified whether persistent J45.909 Assessments Encounter Date Diagnosis (ICD Code) Assessment Notes Treat ment Notes Treatment Clinical Notes 02/26/2024 Controlled type 2 diabetes mellitus without complication, without long-term current use of insulin (ICD-10 - E11.9) She is doing well. She is compliant with her medications. Her weight is stable. Her hemoglobin A1c is 7.0. No changes in her medication were made. I strongly recommended modifications to her lifestyle including exercise and weight loss. 02/26/2024 Mixed hyperlipidemia (ICD-10 - E78.2) Her total cholesterol is controlled at 167. No change in her medication was needed. 02/26/2024 Obesity (BMI 30.0-34.9) (ICD-10 - E66.9) Her weight is stable and her body mass index is 34.5. We reviewed her weight loss strategy. We discussed modifications to lifestyle that could cause weight loss. 02/26/2024 Nephrolithiasis (ICD-10 - N20.0) She has had no renal colic. In the last year. She will notify me if this happens. 02/26/2024 Moderate asthma, unspecified whether complicated, unspecified whether persistent (ICD-10 - J45.909) She has had no attacks of asthma recently. He has had no flareups of allergies. Her breathing was within normal limits with good air movement today. Mild occasional inspiratory wheezing was noted today in the right lung. Plan Of Treatment Medication Medication Name Sig Start Date Stop Date Notes Spironolactone 50 MG 1 tablet Orally Onc e a day 10/19/2020 Alendronate Sodium 70 MG 1 tablet 30 min utes before the first food, beverage or medicine of the day with plain water Orally Trulicity 0.75 MG/0.5ML as directed Subc utaneous once a week 08/28/2023 Etodolac 200 MG TAKE 1 CAPSULE BY MO UTH TWICE DAILY WITH FOOD NEEDED Sodium Polystyrene Sulfonate 15 GM/60ML 60 ml Orally Once a day 01/11/2022 Aspirin 325 MG 1 tablet Orally Once a day Montelukast Sodium 10 MG TAKE 1 TABLET B Y MOUTH EVERY EVENING hydroCHLOROthiazide 25 MG TAKE 1 TABLET BY MOUTH EVERY DAY Albuterol Sulfate HFA 108 (9 0 Base) MCG/ACT 2 puffs as needed Inhalation four times a day prn wheezing 02/09/2019 Vitamin E 400 UNIT 1 capsule Orally Onc e a day Pioglitazone HCl 30 MG TAKE 1 TABLET BY MOUTH EVERY DAY Lisinopril 40 MG TAKE 1 TABLET BY COLBY TH EVERY DAY Simvastatin 20 MG TAKE 1 TABLET BY COLBY TH EVERY DAY metFORMIN HCl 500 MG TAKE 2 TABLETS BY M OUTH TWICE DAILY Pending Test Test Name Order Date PROFILE, FASTING (COMPREHENSIVE METABOLI C) 02/26/2024 CBC WITH AUTO DIFF 02/26/2024 Lipid Panel 02/26/2024 Microalbumin, Random 02/26/2024 Hemoglobin A1c 02/26/2024 Next Appt Details Follow Up: 4 Months, Reason: OV Provider Name:Corey Sumner , 03/31/2025 02:30:00 PM, [address] [place] [address] [place], [address], Provider Name:Corey Sumner , 11/29/2025 02:00:00 PM, [address] [place] [address] [place], [address], Progress Notes * Pam MARQUEZ AnnDOB:09/1950 (73 yo F)Acc No.[id number]:02/26/2024 Progress Notes Patient: Pam Weaver Provider: Jovon Sumner MD :1950 A ge:73 Y S ex:Female Date:02/26/2024 Address:[address] [place] [address], [id number] Subjective: * Chief Complaints: * T ype 2 diabetesHypertensionHyperlipidemiaAsthmaObesityNephrolithiasis * HPI: C OVID-19 Screening: She returns to the office for medical management. Her blood work was reviewed with her in detail. No changes in her medications were necessary today. She feels healthy and well. She is living independently at home. Her blood pressure is controlled. She has not had episodes of asthma recently. She is trying to lose weight. She has had no renal colic. Questions H ave you experienced fever, chills, cough, sore throat, shortness of breath, difficulty breathing, muscle aches, loss of taste or smell? N o H ave you been exposed to the virus within the last 10 days? N o H ave you travelled internationally in the last 10 days? N o H ave you been exposed to COVID-19 in the past? Y es * ROS: G eneral/Constitutional: pain o nly normal aches and pains. C hills d enies.?Fatigue a dmits. F ever d enies. E NT: Decreased hearing m ild. R espiratory: Cough d enies. C ardiovascular: Chest pain with exertion d enies. D yspnea on exertion?denies. S hortness of breath d enies. G astrointestinal: Constipation o ccasional. D ecreased appetite d enies. D iarrhea d enies. H eartburn d enies. N ausea d enies. R ectal bleeding d enies. V omiting d enies. H ematology: bruising d enies. p etechiae d enies. S wollen glands n one have been noted. G enitourinary: Frequent urination a t night. M usculoskeletal: Muscle aches d enies. P ainful joints d enies. S ciatica d enies. W eakness d enies. S kin: Itching d enies. R ricardo d enies. S kin lesion(s)?denies. N eurologic: Difficulty speaking d enies. D izziness d enies.?Headache d enies. L ow back pain d enies. P sychiatric: Depressed mood d enies. * Medical History: * Surgical History: r otator cuff tear repair/ right shoulder 11/2008right ankle fracture 1993endocervical polypectomy, [facility], Dr. Duffy 10/2017both eyelids lift 11/2018 * Hospitalization/Major Diagno stic Procedure: i njured kidney 2015 * Family History: F ather: 84 yrs, Congestive heart failure, coronary artery disease, angina, diagnosed with CVD. M other: 65 yrs, Hypertension, adult-onset diabetes mellitus, osteoarthritis, breast cancer, diagnosed with DM, Cancer, HTN. 1 brother(s) , 1 sister(s) - healthy. 2 daughter(s) - healthy. . She has one sister with lung disease and rheumatoid arthritis. She has a brother who has had several strokes at the age of 55. Her 2 daughters are alive and well and healthy. She is not aware of any family history of mental illness, addiction or substance abuse. * Social History: T obacco Use: T obacco Use/Smoking P atient is a n onsmoker A dditional Findings: Tobacco Non-User A ggressive non-smoker S he has been to Don for 48 years. She has 2 children and he has one child. They have one child together. Bertrand has had a DVT. Fiona has osteoarthritis and diabetes mellitus. Karen had a myocardial infarction at age 43. They have 7 grandchildren. She is retired. 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 * Medications: T akingmetFORMIN HCl 500 MG Tablet TAKE 2 TABLETS BY MOUTH TWICE DAILY Lisinopril 40 MG Tablet TAKE 1 TABLET BY MOUTH EVERY DAY Pioglitazone HCl 30 MG Tablet TAKE 1 TABLET BY MOUTH EVERY DAY Simvastatin 20 MG Tablet TAKE 1 TABLET BY MOUTH EVERY DAY hydroCHLOROthiazide 25 MG Tablet TAKE 1 TABLET BY MOUTH EVERY DAY Montelukast Sodium 10 MG Tablet TAKE 1 TABLET BY MOUTH EVERY EVENING Aspirin 325 MG Tablet 1 tablet Orally Once a dayVitamin E 400 UNIT Capsule 1 capsule Orally Once a dayAlbuterol Sulfate HFA 108 (90 Base) MCG/ACT Aerosol Solution 2 puffs as needed Inhalation four times a day prn wheezingAlendronate Sodium 70 MG Tablet 1 tablet 30 minutes before the first food, beverage or medicine of the day with plain water Orally Spironolactone 50 MG Tablet 1 tablet Orally Once a daySodium Polystyrene Sulfonate 15 GM/60ML Suspension 60 ml Orally Once a dayEtodolac 200 MG Capsule TAKE 1 CAPSULE BY MOUTH TWICE DAILY WITH FOOD NEEDED Trulicity 0.75 MG/0.5ML Solution Pen- injector as directed Subcutaneous once a weekMedication List reviewed and reconciled with the patientTaking metFORMIN HCl 500 MG Tablet TAKE 2 TABLETS BY MOUTH TWICE DAILY Taking Lisinopril 40 MG Tablet TAKE 1 TABLET BY MOUTH EVERY DAY Taking Pioglitazone HCl 30 MG Tablet TAKE 1 TABLET BY MOUTH EVERY DAY Taking Simvastatin 20 MG Tablet TAKE 1 TABLET BY MOUTH EVERY DAY Taking hydroCHLOROthiazide 25 MG Tablet TAKE 1 TABLET BY MOUTH EVERY DAY Taking Montelukast Sodium 10 MG Tablet TAKE 1 TABLET BY MOUTH EVERY EVENING Taking Aspirin 325 MG Tablet 1 tablet Orally Once a dayTaking Vitamin E 400 UNIT Capsule 1 capsule Orally Once a dayTaking Albuterol Sulfate HFA 108 (90 Base) MCG/ACT Aerosol Solution 2 puffs as needed Inhalation four times a day prn wheezingTaking Alendronate Sodium 70 MG Tablet 1 tablet 30 minutes before the first food, beverage or medicine of the day with plain water Orally Taking Spironolactone 50 MG Tablet 1 tablet Orally Once a dayTaking Sodium Polystyrene Sulfonate 15 GM/60ML Suspension 60 ml Orally Once a dayTaking Etodolac 200 MG Capsule TAKE 1 CAPSULE BY MOUTH TWICE DAILY WITH FOOD NEEDED Taking Trulicity 0.75 MG/0.5ML Solution Pen-injector as directed Subcutaneous once a weekMedication List reviewed and reconciled with the patient * Allergies: C odeine Sulfate: vomitingPercocet: vomitingno[Allergies Verified] Objective: * Vitals: H t: 63, Wt:195, BMI:34.54, BP:140/79, HR:74, Temp:97.2, Ht-cm: 160.02, Wt-k.45. * P ast Orders: Lab:Lipid Panel * Order Date 02/20/2024 12/12/2023 08/14/2023 Triglycerides 168 H (Ref Range: <150 mg/dL) 109 (Ref Range: <150 mg/dL) 108 (Ref Range: <150 mg/dL) Cholesterol 167 (Ref Range: <200 mg/dL) 156 (Ref Range: <200 mg/dL) 187 (Ref Range: <200 mg/dL) LDL Cholesterol Calculated 82 (Ref Range: <100 mg/dL) 79 (Ref Range: <100 mg/dL) 101 H (Ref Range: <100 mg/dL) HDL Cholesterol 52 (Ref Range: >40 mg/dL) 56 (Ref Range: >40 mg/dL) 65 (Ref Range: >40 mg/dL) * Lab:Comprehensive [place]. Pane l Fast * Order Date 02/20/2024 12/12/2023 08/14/2023 Sodium 140 (Ref Range: 135-145 mmol/L) 141 (Ref Range: 135-145 mmol/L) 142 (Ref Range: 135-145 mmol/L) Bilirubin Total 0.3 (Ref Range: 0.0-1.0 mg/dL) 0.3 (Ref Range: 0.0-1.0 mg/dL) 0.3 (Ref Range: 0.0-1.0 mg/dL) Aspartate Amino Transferase 18 (Ref Range: 5-31 U/L) 17 (Ref Range: 5-31 U/L) 18 (Ref Range: 5-31 U/L) Alanine Aminotransferase 16 (Ref Range: 0-31 U/L) 13 (Ref Range: 0-31 U/L) 18 (Ref Range: 0-31 U/L) Total Protein 7.5 (Ref Range: 6.5-8.0 g/dL) 7.3 (Ref Range: 6.5-8.0 g/dL) 7.6 (Ref Range: 6.5-8.0 g/dL) Albumin Level 4.2 (Ref Range: 3.5-5.0 g/dL) 4.1 (Ref Range: 3.5-5.0 g/dL) 4.1 (Ref Range: 3.5-5.0 g/dL) Alkaline Phosphatase 75 (Ref Range: 39-117 U/L) 68 (Ref Range: 39-117 U/L) 89 (Ref Range: 39-117 U/L) Potassium 4.2 (Ref Range: 3.3-5.1 mmol/L) 4.8 (Ref Range: 3.3-5.1 mmol/L) 5.1 (Ref Range: 3.3-5.1 mmol/L) Chloride 103 (Ref Range: 96-108 mmol/L) 105 (Ref Range: 96-108 mmol/L) 105 (Ref Range: 96-108 mmol/L) Carbon Dioxide 26 (Ref Range: 22-29 mmol/L) 27 (Ref Range: 22-29 mmol/L) 27 (Ref Range: 22-29 mmol/L) Anion Gap 15 (Ref Range: 12-20) 14 (Ref Range: 12-20) 15 (Ref Range: 12-20) Blood Urea Nitrogen 35 H (Ref Range: 9-16 mg/dL) 34 H (Ref Range: 9-16 mg/dL) 32 H (Ref Range: 9-16 mg/dL) Creatinine 1.14 (Ref Range: 0.5-1.4 mg/dL) 1.22 (Ref Range: 0.5-1.4 mg/dL) 1.30 (Ref Range: 0.5-1.4 mg/dL) Estimated Glomerular Filt Rate 46 43 40 Glucose Fasting 154 H (Ref Range: 60-99 mg/dL) 146 H (Ref Range: 60-99 mg/dL) 207 H (Ref Range: 60-99 mg/dL) Calcium 10.5 H (Ref Range: 8.4-10.2 mg/dL) 9.6 (Ref Range: 8.4-10.2 mg/dL) 9.6 (Ref Range: 8.4-10.2 mg/dL) * Lab:Complete Blood Count Aut o Diff * Order Date 02/20/2024 12/12/2023 08/14/2023 White Blood Count 9.9 (Ref Range: 4.8-10.8 X10*3/uL) 9.1 (Ref Range: 4.8-10.8 X10*3/uL) 9.1 (Ref Range: 4.8-10.8 X10*3/uL) Red Blood Count 4.67 (Ref Range: 4.20-5.50 X10*6/uL) 4.69 (Ref Range: 4.20-5.50 X10*6/uL) 4.88 (Ref Range: 4.20-5.50 X10*6/uL) Hemoglobin 12.8 (Ref Range: 12.0-16.0 g/dl) 12.9 (Ref Range: 12.0-16.0 g/dl) 13.2 (Ref Range: 12.0-16.0 g/dl) Hematocrit 40.3 (Ref Range: 37.0-47.0 %) 40.1 (Ref Range: 37.0-47.0 %) 41.8 (Ref Range: 37.0-47.0 %) Mean Corpuscular Volume 86.3 (Ref Range: 80.0-98.0 fL) 85.5 (Ref Range: 80.0-98.0 fL) 85.7 (Ref Range: 80.0-98.0 fL) Mean Corpuscular Hemoglobin 27.4 (Ref Range: 27.0-33.0 pg) 27.5 (Ref Range: 27.0-33.0 pg) 27.0 (Ref Range: 27.0-33.0 pg) Mean Corpuscular HGB Conc 31.8 (Ref Range: 31.0-35.0 g/dl) 32.2 (Ref Range: 31.0-35.0 g/dl) 31.6 (Ref Range: 31.0-35.0 g/dl) Red Cell Distribution Width 14.2 (Ref Range: 11.0-16.0 %) 14.1 (Ref Range: 11.0-16.0 %) 13.9 (Ref Range: 11.0-16.0 %) Platelet Count 333 (Ref Range: 160-400 X10*3/uL) 337 (Ref Range: 160-400 X10*3/uL) 298 (Ref Range: 160-400 X10*3/uL) Mean Platelet Volume 9.3 L (Ref Range: 9.4-12.3 fL) 9.1 L (Ref Range: 9.4-12.3 fL) 9.0 L (Ref Range: 9.4-12.3 fL) Neutrophils Percent Auto 69.6 (Ref Range: 45-73 %) 68.4 (Ref Range: 45-73 %) 62.9 (Ref Range: 45-73 %) Imm Gran Pct Auto 1.0 H (Ref Range: 0.0-0.4 %) 1.3 H (Ref Range: 0.0-0.4 %) 1.6 H (Ref Range: 0.0-0.4 %) Lymphocytes Percent Auto 20.2 (Ref Range: 20-40 %) 20.4 (Ref Range: 20-40 %) 24.7 (Ref Range: 20-40 %) Monocytes Percent Auto 6.3 (Ref Range: 2-11 %) 6.7 (Ref Range: 2-11 %) 7.3 (Ref Range: 2-11 %) Eosinophils Percent Auto 1.9 (Ref Range: 0-4 %) 2.4 (Ref Range: 0-4 %) 2.4 (Ref Range: 0-4 %) Basophils Percent Auto 1.0 (Ref Range: 0-2 %) 0.8 (Ref Range: 0-2 %) 1.1 (Ref Range: 0-2 %) NRBC Pct Auto 0.0 (Ref Range: 0.0-0.2 /100WBC) 0.0 (Ref Range: 0.0-0.2 /100WBC) 0.0 (Ref Range: 0.0-0.2 /100WBC) Neutrophils Absolute Auto 6.9 (Ref Range: 2.0-8.3 x10*3/uL) 6.2 (Ref Range: 2.0-8.3 x10*3/uL) 5.7 (Ref Range: 2.0-8.3 x10*3/uL) Imm Gran Abs Auto 0.10 H (Ref Range: 0.00-0.03 X10*3/uL) 0.12 H (Ref Range: 0.00-0.03 X10*3/uL) 0.15 H (Ref Range: 0.00-0.03 X10*3/uL) Lymphocytes Absolute Auto 2.0 (Ref Range: 1.2-4.9 X10*3/uL) 1.9 (Ref Range: 1.2-4.9 X10*3/uL) 2.3 (Ref Range: 1.2-4.9 X10*3/uL) Monocytes Absolute Auto 0.6 (Ref Range: 0.1-1.2 X10*3/uL) 0.6 (Ref Range: 0.1-1.2 X10*3/uL) 0.7 (Ref Range: 0.1-1.2 X10*3/uL) Eosinophils Absolute Auto 0.2 (Ref Range: 0.0-0.4 X10*3/uL) 0.2 (Ref Range: 0.0-0.4 X10*3/uL) 0.2 (Ref Range: 0.0-0.4 X10*3/uL) Basophils Absolute Auto 0.1 (Ref Range: 0.0-0.2 X10*3/uL) 0.1 (Ref Range: 0.0-0.2 X10*3/uL) 0.1 (Ref Range: 0.0-0.2 X10*3/uL) NRBC Abs Auto 0.000 (Ref Range: 0.0-0.012 X10*3/uL) 0.000 (Ref Range: 0.0-0.012 X10*3/uL) 0.000 (Ref Range: 0.0-0.012 X10*3/uL) * Lab:Hemoglobin A1c * Order Date 02/20/2024 12/12/2023 08/14/2023 Hemoglobin A1c % 7.0 H (Ref Range: <6.0 %) 7.0 H (Ref Range: <6.0 %) 8.9 H (Ref Range: <6.0 %) Estimated Average Glucose 154 (Ref Range: mg/dL) 154 (Ref Range: mg/dL) 209 (Ref Range: mg/dL) * Lab:Microalbumin, Random * Order Date 02/20/2024 12/12/2023 04/17/2023 Creatinine Urine 111.94 (Ref Range: mg/dL) 82.15 (Ref Range: mg/dL) 106.96 (Ref Range: mg/dL) Microalbumin Urine 34.0 (Ref Range: mg/L) 21.0 (Ref Range: mg/L) 97.0 (Ref Range: mg/L) Microalbum Creatinine Ratio Ur 30.3 H (Ref Range: <30 ug/mg cr) 25.5 (Ref Range: <30 ug/mg cr) 90.6 H (Ref Range: <30 ug/mg cr) * Examination: G eneral Examination: GENERAL APPEARANCE: p leasant, well nourished, well developed, in no acute distress, calm and relaxed , obese , woman. HEAD: a traumatic, normocephalic. EYES: e kash, perrla, anicteric, conjugate. EARS: n ormal. NOSE: s eptum intact. ORAL CAVITY: n ormal, unremarkable. NECK/THYROID: n o jugular venous distention, no carotid bruit, thyroid normal. LYMPH NODES: n o enlarged lymph nodes,spleen normal. SKIN: n o suspicious lesions, anicteric. HEART: n o clicks, gallops, murmurs, or rubs, regular rhythm, S1, S2 normal, no s3, or vascular bruits. LUNGS: c lear to auscultation , scattered inspiratory wheezes , good air movement. BREASTS: no masses palpable bilaterally. ABDOMEN: b owel sounds normal, no ascites, no organomegaly, no mass. RECTAL EXAM: n ot examined. MUSCULOSKELETAL: e xtremities unremarkable, no clubbing, cyanosis or edema. PERIPHERAL PULSES: n ormal. NEUROLOGIC: a lert and oriented, cranial nerves 2-12 grossly intact, deep tendon reflexes 2+ symmetrical, motor strength normal upper and lower extremities, sensory exam intact. PSYCH: a lert, oriented. Assessment: * Assessment: 1. C ontrolled type 2 diabetes mellitus without complication, without long-term current use of insulin - E11.9, She is doing well. She is compliant with her medications. Her weight is stable. Her hemoglobin A1c is 7.0. No changes in her medication were made. I strongly recommended modifications to her lifestyle including exercise and weight loss. 2 . M ixed hyperlipidemia - E78.2, Her total cholesterol is controlled at 167. No change in her medication was needed. 3 . O besity (BMI 30.0-34.9) - E66.9, Her weight is stable and her body mass index is 34.5. We reviewed her weight loss strategy. We discussed modifications to lifestyle that could cause weight loss. 4 .?Nephrolithiasis - N20.0, She has had no renal colic. In the last year. She will notify me if this happens. 5 . M oderate asthma, unspecified whether complicated, unspecified whether persistent - J45.909, She has had no attacks of asthma recently. He has had no flareups of allergies. Her breathing was within normal limits with good air movement today. Mild occasional inspiratory wheezing was noted today in the right lung. Plan: * Treatment: 2. M ixed hyperlipidemia L AB: PROFILE, FASTING (COMPREHENSIVE METABOLIC) L AB: CBC WITH AUTO DIFF L AB: Lipid Panel L AB: Microalbumin, Random L AB: Hemoglobin A1c 3. O besity (BMI 30.0-34.9) L AB: PROFILE, FASTING (COMPREHENSIVE METABOLIC) L AB: CBC WITH AUTO DIFF L AB: Lipid Panel L AB: Microalbumin, Random L AB: Hemoglobin A1c 4. O thers Continue metFORMIN HCl Tablet, 500 MG, TAKE 2 TABLETS BY MOUTH TWICE DAILY; C ontinue Lisinopril Tablet, 40 MG, TAKE 1 TABLET BY MOUTH EVERY DAY; C ontinue Pioglitazone HCl Tablet, 30 MG, TAKE 1 TABLET BY MOUTH EVERY DAY; C ontinue Simvastatin Tablet, 20 MG, TAKE 1 TABLET BY MOUTH EVERY DAY; C ontinue hydroCHLOROthiazide Tablet, 25 MG, TAKE 1 TABLET BY MOUTH EVERY DAY; C ontinue Montelukast Sodium Tablet, 10 MG, TAKE 1 TABLET BY MOUTH EVERY EVENING; C ontinue Aspirin Tablet, 325 MG, 1 tablet, Orally, Once a day; C ontinue Vitamin E Capsule, 400 UNIT, 1 capsule, Orally, Once a day; C ontinue Albuterol Sulfate HFA Aerosol Solution, 108 (90 Base) MCG/ACT, 2 puffs as needed, Inhalation, four times a day prn wheezing; C ontinue Alendronate Sodium Tablet, 70 MG, 1 tablet 30 minutes before the first food, beverage or medicine of the day with plain water, Orally; C ontinue Spironolactone Tablet, 50 MG, 1 tablet, Orally, Once a day; C ontinue Sodium Polystyrene Sulfonate Suspension, 15 GM/60ML, 60 ml, Orally, Once a day; C ontinue Etodolac Capsule, 200 MG, TAKE 1 CAPSULE BY MOUTH TWICE DAILY WITH FOOD NEEDED; C ontinue Trulicity Solution Pen-injector, 0.75 MG/0.5ML, as directed, Subcutaneous, once a week. * Procedure Codes: * Preventive Medicine: Counseling: C are goal follow-up plan: Counseling for abnormal BMI given Y es Above Normal BMI Follow-up D ietary management education, guidance, and counseling, Dietary needs education, Exercise promotion: strength training, Exercise promotion: stretching, Feeding regime, Giving encouragement to exercise, Lifestyle education regarding diet, Nutrition / feeding management, Nutrition therapy, Prescribed activity/exercise education, Prescribed diet education, Prescribed dietary intake, Special diet education, Weight monitoring , Intervention, Order not done: Medical or Other reason not done DM Care Plan: P atient Lifestyle Goals P atient wants to be able to manage diabetes without too much effort. T reatment Goals H bA1C < 7.0, Blood Sugars less than < 115. B arriers n o barriers. S elf-Managment Goals W ork on weight loss, with a goal of losing 1 lb per week. * Follow Up: 4 Months (Reason: OV) * Images: * Sign off status: Completed true * Provider: Jovon Sumner MD Date: 0 02/26/2024 Generated for Madelyn betts/Kenny/eTransmitting on: 09:16 AM EDT History and Physical Notes * HPI (History of Present Illness) Category Sub-Category Detail Notes COVID-19 Screening Questions Have you had any new onset fever, chills, cough, congestion, sore throat, shortness of breath, muscle aches?: No Have you been exposed to the virus withi n the last 10 days?: No Have you travelled internationally in [facility] last 10 days?: No Have you been exposed to COVID-19 in the past?: Yes Examination Category Sub-Category Detail Notes General Examination GENERAL APPEARANCE: pleasant , well nourished, well developed, in no acute distress, calm and relaxed , obese , woman HEAD: atraumatic, normocep halic EYES: eomi, perrla, anicte alfredito, conjugate EARS: normal NOSE: septum intact NECK/THYROID: no jugular venous di stention, no carotid bruit, thyroid normal HEART: no clicks, gallops, murmurs, or rubs, regular rhythm, S1, S2 normal, no s3, or vascular bruits LUNGS: clear to auscultatio n , scattered inspiratory wheezes , good air movement ABDOMEN: bowel sounds normal, no ascites, no organomegaly, no mass NEUROLOGIC: alert and oriented, cranial nerves 2-12 grossly intact, deep tendon reflexes 2+ symmetrical, motor strength normal upper and lower extremities, sensory exam intact SKIN: no suspicious lesion s, anicteric PERIPHERAL PULSES: normal BREASTS: no masses palpable b ilaterally MUSCULOSKELETAL: extremities unremark able, no clubbing, cyanosis or edema LYMPH NODES: no enlarged lymph no tanya,spleen normal RECTAL EXAM: not examined PSYCH: alert, oriented ORAL CAVITY: normal, unremarkable
--- OUTSIDE RECORDS SUMMARY | 2024-05-18 06:47 | XMS_ITS ---
Author Organization Corey Sumner III, MD Address [address] [place] [address] Care Team Providers Care Marketing Co Op Name Role Phone Dr. Corey Sumner III Primary Care Provider Reason For Referral Reason Consult and Treat Right Elbow Pain Diagnosis 1 Elbow pain, right (M 25.521) Referral Organization Corey Sumner III, MD Referring Provider First Name Corey Referring Provider Last Name Taisha Referring Provider Speciality Internal M edicine Referred Provider [place] Referred Provider Specialty Orthopedic S urgery General Notes DCarolyn 05/18/2024 11:26:23 AM > Referral and progress note faxed., Carolyn Morales 06/11/2024 02:21:24 PM > Refaxed referral as they did not receive the referral. patient was called and notified. Patient stated that she does not want to go to [facility] as it is hard to get ahold of, patient would like for the referral to be closed. Referral Priority Routine REASON FOR VISIT Needs Referral Social History Sex Assigned At : Social History Observation Description Sex Assigned At Female Encounters Encounter Location Date Provider Diagnosis Corey Sumner III, MD [address] [place] [address] [address] [place] [id number] 05/18/2024 Corey Sumner Plan Of Treatment Referrals Referral Date Details 05/18/2024 05/18/2024, Consult and Treat Right Elbow Pain, [facility] Next Appt Details Provider Name:Corey Sumner , 03/31/2025 02:30:00 PM, [address] [place] [address] [address], [place], [address], Provider Name:Corey Sumner , 11/29/2025 02:00:00 PM, [address] [place] [address] [address], [place], [address], Progress Notes * ALMA Pam CalvinDOB:09/1950 (73 yo F)Acc No.[id number]:05/18/2024 Patient: Pam STRINGER Marixa :1950 A ge:73 Y S ex:Female Address:[address] [place], [place] [address], [facility], [address] Subjective: * Chief Complaints: * N eeds Referral * Medical History: * Surgical History: * Hospitalization/Major Diagno stic Procedure: * Medications: Objective: * Vitals: * Physical Examination: Assessment: Plan: * Treatment: * Procedure Codes: * true * Date: Generated for Madelyn betts/Kenny/eTransmitting on: 09:16 AM EDT Consultation Request Notes Referral Date Referring Provider Referred Provider Not jsoef 05/18/2024 Corey Sumner [facility] Consult and Treat Right Elbow Pain
--- OUTSIDE RECORDS SUMMARY | 2024-07-01 10:00 | XMS_ITS ---
Author Organization Corey Sumner III, MD Address [address] [address] Care Team Providers Care Senior Business Process Analyst Name Role Phone Dr. Corey Sumner III Primary Care Provider [phone] Allergies Allergen (clinical drug ingredient) Drug/Non Drug Allergy documented on EMR Reaction Allergy Type Onset Date Status acetaminophen / oxycodone Percocet vomiting Drug Allergy Active codeine Codeine Sulfate vomiting Drug Allergy A ctive Results Component Value Reference Range Notes Uric Acid Reviewed date:11/25/2024 02:19:10 PM Interpretation: Performing Lab:[address] [id number] Notes/Report: Uric Acid 7.4 2.4-5.7 mg/dL Lipid Panel Reviewed date:11/25/2024 02:19:10 PM Interpretation: Performing Lab:[address] [id number] Notes/Report: Triglycerides 126 <150 mg/dL Desirable Triglyceride: less than 150 mg/dL Borderline High Triglyceride 150-199 mg/dL High Triglyceride: 200-499 mg/dL Very High Triglyceride: greater than or equal to 5OO mg/dL Cholesterol 165 <200 mg/dL Desirable Cholesterol: less than 200 mg/dL Borderline High Cholesterol: 200-239 mg/dL High Cholesterol: greater than 239 mg/dL LDL Cholesterol Calculated 85 <100 mg/dL Desirable LDL: less than 100 mg/dL Near Optimal/Above Optimal LDL: 110-129 mg/dL Borderline High LDL: 130-159 mg/dL High LDL: 160-189 mg/dL Very High LDL: greater than or equal to 190 mg/dL HDL Cholesterol 55 >40 mg/dL Desirable HDL: greater than 40 mg/dL Note: This HDL assay may give artificially low results in patients with liver disease. Microalbumin, Random Reviewed date:11/25/2024 02:19:10 PM Interpretation: Performing Lab:[facility], [address] [place] [phone] Notes/Report: Creatinine Urine 98.90 Microalbumin Urine 41.0 Microalbum/Creatinine Ratio Ur 41.4 <30 ug/mg cr Albumin/Creatinine Ratio Reference Ranges: Normal: < 30 ug/mg creatinine Microalbuminuria: 30 - 300 ug/mg creatinine Clinical Albuminuria: > 300 ug/mg creatinine Hemoglobin A1c Reviewed date:11/18/2024 12:54:05 PM Interpretation: Performing Lab:[facility], [address] [place] [phone] Notes/Report: Hemoglobin A1c % 7.2 <6.0 % Hemoglobin A1C Reference Range Adults: 4.8 - 6.0 % Non diabetic: < 6.0 % Goal: < 7.0 % Additional Action Suggested: > 8.0 % Note: Hemoglobin A1c results are invalid for patients with abnormal amounts of HbF. Blood transfusions may impact the HbA1c concentration in the patient sample. Estimated Average Glucose 160 eAG = Estimated average glucose which is %A1C expressed as average glucose, using the formula of the O0H-Szhacbm Average Glucose study (ADAG), Diabetes Care, Vol.31,#8, Jan. 2007 XR elbow RT min 3V Reviewed date:11/18/2024 12:54:05 PM Interpretation: Performing Lab: Notes/Report: [address] [address] XRay Report Signed Patient: Pam Marquez MR#: [id number] : 1950 Acct:[id number] Age/Sex: 73 / F ADM Date: 07/15/24 Loc: [facility] Attending Dr: Corey Sumner MD Ordering Physician: Corey Sumner MD Date of Service: 07/15/24 Procedure(s): XR elbow RT min 3V Accession Number(s): [id number] cc: Corey Sumner MD CLINICAL HISTORY: QUESTIONING FRACTURE AFTER FALL 3 view right elbow Comparison: None Findings: No fracture or malalignment. Mild ulnohumeral and radiocapitellar osteoarthritis. Mild calcific tendinopathy at the common flexor tendon origin. No elbow joint effusion. IMPRESSION: No acute findings. This document has been electronically signed by: Yair Nick DO on 07/16/2024 12:59:08 Dictated By: Yair Nick MD Signed By: <Electronically signed by Yair Nick MD in OV> 07/16/24 1300 DD/ 1259 TD/TT: 07/16/24 125 Steam Table Associate: [place] [address] XRay Report Signed Patient: Lupillo Marquez MR#: [id number] : 1950 Acct:[id number] Age/Sex: 73 / F ADM Date: 07/15/24 Loc: HO.XRAY Attending Dr: Corey Sumner MD Ordering Physician: Corey Sumner MD Date of Service: 07/15/24 Procedure(s): XR elb ow RT min 3V Accession Number(s): [id number] cc: Corey Sumner MD CLINICAL HISTORY: QUESTIONING FRACTURE AFTER FALL 3 view right elbow Comparison: None Findings: No fracture or malalignment. Mild ulnohumeral and radiocapitellar osteoarthritis. Mild calcific tendinopathy at the common flexor tendon origin. No elbow joint effusion. IMPRESSION: No acute findings. This document has be en electronically signed by: Yair Nick DO on 07/16/2024 12:59:08 Dictated By: Yair Nick MD Signed By: <Electronically signed by Yair Nick MD in OV> 07/16/24 1300 DD/ 1259 TD/TT: 07/16/24 125 Steam Table Associate: REASON FOR VISIT Obesity, Resolved right elbow pain and erythema, Left shoulder and axillary pain, Diabetes, Hypertension, Hyperlipidemia, History of asthma Medications Medication SIG (Take, Route, Frequency, Duration) Notes Start Date End Date Status Albuterol Sulfate HFA 108 (90 Base) MCG/ACT 2 puffs as needed Inhalation four times a day prn wheezing 02/09/2019 Active Alendronate Sodium 70 MG 1 tablet 30 minutes before the first food, beverage or medicine of the day with plain water Orally Active Spironolactone 50 MG 1 tablet Orally Once a day 10/19/2020 Active Sodium Polystyrene Sulfonate 15 GM/60ML 60 ml Orally Once a day 01/11/2022 Active Trulicity 1.5 MG/0.5ML as directed Subcutaneous weekly for 28 days disp 4 weeks pens and needles 07/01/2024 01/13/2025 Active Aspirin 325 MG 1 tablet Orally Once a day Active Vitamin E 400 UNIT 1 capsule Orally Once a day Active Simvastatin 20 MG TAKE 1 TABLET BY MOUTH EVERY DAY Active hydroCHLOROthiazide 25 MG TAKE 1 TABLET BY MOUTH EVERY DAY Active Montelukast Sodium 10 MG TAKE 1 TABLET B Y MOUTH EVERY EVENING Active metFORMIN HCl 500 MG TAKE 2 TABLETS BY MOUTH TWICE DAILY Active Lisinopril 40 MG TAKE 1 TABLET BY MOUTH EVERY DAY Active Etodolac 200 MG TAKE 1 CAPSULE BY MOUTH TWICE DAILY WITH FOOD NEEDED Active Pioglitazone HCl 30 MG TAKE 1 TABLET BY MOUTH EVERY DAY Active Trulicity 0.75 MG/0.5ML as directed Subcutaneous once a week 08/28/2023 Active Social History Tobacco Use: Social History Observation Description Date Details (start date - stop date) Never Smoker NA - NA Sex Assigned At : Social History Observation Description Sex Assigned At Female Tobacco Use/Smoking Question Answer Notes Patient is a nonsmoker Additional Findings: Tobacco Non-User Aggressive non-smoker Problems Problem Type SNOMED Code ICD Code Onset Dates Problem Status W/U Status Risk Notes Problem Arthralgia of the upper arm ([id number]) Right elbow pain (M25.521) Active confirmed The right elbow was normal to examination today. The history sounds like an episode of gout. She was instructed to come to the office at once if it recurs. A uric acid level has been ordered. There was no sign of abnormality in the elbow today. Vital Signs Temperature 97.3 degrees Fahrenheit 07/01/19 25 Blood pressure systolic 136 mm Hg 07/01/19 25 Blood pressure diastolic 60 mm Hg 025 Heart Rate 82 /min 07/01/2024 Height 63 in 07/01/2024 Weight 196 lbs 07/01/2024 BMI 34.72 kg/m2 07/01/2024 Encounters Encounter Location Date Provider Diagnosis Corey Sumner III, MD [address] [place] [address] [place] [address] 07/01/2024 Corey Sumner Right elbow pain M25 .521 ; Controlled type 2 diabetes mellitus without complication, without long-term current use of insulin E11.9 ; Obesity (BMI 30.0-34.9) E66.9 ; Mixed hyperlipidemia E78.2 ; Essential hypertension I10 and Moderate asthma, unspecified whether complicated, unspecified whether persistent J45.909 Assessments Encounter Date Diagnosis (ICD Code) Assessment Notes Treat ment Notes Treatment Clinical Notes 07/01/2024 Right elbow pain (ICD-10 - M25.521) The right elbow was normal to examination today. The history sounds like an episode of gout. She was instructed to come to the office at once if it recurs. A uric acid level has been ordered. There was no sign of abnormality in the elbow today. 07/01/2024 Controlled type 2 diabetes mellitus without complication, without long-term current use of insulin (ICD-10 - E11.9) She is doing well. She is compliant with her medications. Her weight is stable. Her hemoglobin A1c is 7.5. I have increased the dose of the trulicity I strongly recommended modifications to her lifestyle including exercise and weight loss. 07/01/2024 Obesity (BMI 30.0-34.9) (ICD-10 - E66.9) Her weight is stable and her body mass index is 34.7. We reviewed her weight loss strategy. We discussed modifications to lifestyle that could cause weight loss. 07/01/2024 Mixed hyperlipidemia (ICD-10 - E78.2) Her fasting lipid profile shows good control of her lipids which are in the normal range. No change in her regimen as needed. 07/01/2024 Essential hypertension (ICD-10 - I10) Her blood pressure is currently stable and no change in her regimen was made. I recommended aggressive weight loss and sodium restriction. 07/01/2024 Moderate asthma, unspecified whether complicated, unspecified whether persistent (ICD-10 - J45.909) She has had no attacks of asthma recently. He has had no flareups of allergies. Her breathing was within normal limits with good air movement today. Mild occasional inspiratory wheezing was noted today in the right lung. Plan Of Treatment Medication Medication Name Sig Start Date Stop Date Notes Albuterol Sulfate HFA 108 (90 Base) MCG/ACT 2 puffs as needed Inhalation four times a day prn wheezing 02/09/2019 Alendronate Sodium 70 MG 1 tablet 30 min utes before the first food, beverage or medicine of the day with plain water Orally Spironolactone 50 MG 1 tablet Orally Onc e a day 10/19/2020 Sodium Polystyrene Sulfonate 15 GM/60ML 60 ml Orally Once a day 01/11/2022 Trulicity 1.5 MG/0.5ML as directed Subcutaneous weekly for 28 days 07/01/2024 01/13/2025 disp 4 weeks pens and needles Aspirin 325 MG 1 tablet Orally Once a day Vitamin E 400 UNIT 1 capsule Orally Once a day Simvastatin 20 MG TAKE 1 TABLET BY MOUTH EVERY DAY hydroCHLOROthiazide 25 MG TAKE 1 TABLET BY MOUTH EVERY DAY Montelukast Sodium 10 MG TAKE 1 TABLET B Y MOUTH EVERY EVENING metFORMIN HCl 500 MG TAKE 2 TABLETS BY MOUTH TWICE DAILY Lisinopril 40 MG TAKE 1 TABLET BY MOUTH EVERY DAY Etodolac 200 MG TAKE 1 CAPSULE BY MOUTH TWICE DAILY WITH FOOD NEEDED Pioglitazone HCl 30 MG TAKE 1 TABLET BY MOUTH EVERY DAY Trulicity 0.75 MG/0.5ML as directed Subcutaneous once a week 08/28/2023 Pending Test Test Name Order Date PROFILE, FASTING (COMPREHENSIVE METABOLI C) 07/01/2024 CBC WITH AUTO DIFF 07/01/2024 Next Appt Details Follow Up: As Scheduled, Alpa son: OV, Annual Exam Provider Name:Corey Sumner , 03/31/2025 02:30:00 PM, [address] [place] [address] [address], [place], [phone], Provider Name:Corey Sumner , 11/29/2025 02:00:00 PM, [address] [place] [address] [address], [place], [phone], Progress Notes * Pam MARQUEZDOB:09/1950 (73 yo F)Acc No.[id number]:07/01/2024 Progress Notes Patient: Tae WALTONPam Provider: Jovon Sumner MD :1950 A ge:73 Y S ex:Female Date:07/01/2024 Address: [address], [facility], [id number] Subjective: * Chief Complaints: * O besityResolved right elbow pain and erythemaLeft shoulder and axillary painDiabetesHypertensionHyperlipidemiaHistory of asthma * HPI: C OVID-19 Screening: Questions H ave you had any new onset fever, chills, cough, congestion, sore throat, shortness of breath, muscle aches? N o * : The patient, a 73-year-old female, presented for a routine visit. She reported that she did not believe her medication, Trulicity, was functioning as it should, as she did not feel full as quickly as she used to. She also reported experiencing nerve pain in her elbow, which had flared up again. The patient noted that the bone in her elbow did not seem to be in the same place as before. She reported that when the pain was inflamed, it was red, hot, and very painful, rendering her unable to do anything. This episode of pain occurred in April and lasted for a week. The patient also reported experiencing a weird pain under her arm and around her shoulder blade about a week ago, which lasted for a few days. She also reported experiencing pins and needles in her right leg, which she described as neuropathy. Blood Sugar Level is 154.Her hemoglobin A1c has increased from 7.0-7.5. I have increased the dose of her true vicinity today. * ROS: G eneral/Constitutional: Admits p ain, R ecent right elbow pain, Otherwise only normal aches and pains. C hills d enies. F atigue a dmits. F ever d enies.? E NT: Decreased hearing d enies. R espiratory: Cough d enies. C ardiovascular: Chest pain with exertion d enies. D yspnea on exertion?denies. S hortness of breath d enies. G astrointestinal: Constipation o ccasional. D ecreased appetite d enies. D iarrhea d enies. H eartburn d enies. N ausea d enies. R ectal bleeding d enies. H ematology: bruising d enies. p etechiae d enies. S wollen glands n one have been noted. G enitourinary: Frequent urination a small amount. M usculoskeletal: Muscle aches d enies. P [...] right shoulder 11/2008right ankle fracture 1993endocervical polypectomy, [facility], Dr. Duffy 10/2017both eyelids lift 11/2018No history * Hospitalization/Major Diagno stic Procedure: i njured kidney 2015No history * Family History: F ather: 84 yrs, Congestive heart failure, coronary artery disease, angina, diagnosed with CVD. M other: 65 yrs, Hypertension, adult-onset diabetes mellitus, osteoarthritis, breast cancer, diagnosed with DM, HTN, Cancer. S iblings: alive. 1 brother(s) , 1 sister(s) - healthy. [...] grandchildren. She is retired. 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 * Medications: T [...] MG Tablet 1 tablet Orally Once a day Vitamin E 400 UNIT Capsule 1 capsule Orally Once a day Albuterol Sulfate HFA 108 (90 Base) MCG/ACT Aerosol Solution 2 puffs as needed Inhalation four times a day prn wheezing Alendronate Sodium 70 MG Tablet 1 tablet 30 minutes before the first food, beverage or medicine of the day with plain water Orally Spironolactone 50 MG Tablet 1 tablet Orally Once a day Sodium Polystyrene Sulfonate 15 GM/60ML Suspension 60 ml Orally Once a day Etodolac 200 MG Capsule TAKE 1 CAPSULE BY MOUTH TWICE DAILY WITH FOOD NEEDED Trulicity 0.75 MG/0.5ML Solution Pen-injector as directed Subcutaneous once a week Medication List reviewed and reconciled with the patientTaking [...] MG Tablet 1 tablet Orally Once a day Taking Vitamin E 400 UNIT Capsule 1 capsule Orally Once a day Taking Albuterol Sulfate HFA 108 (90 Base) MCG/ACT Aerosol Solution 2 puffs as needed Inhalation four times a day prn wheezing Taking Alendronate Sodium 70 MG Tablet 1 tablet 30 minutes before the first food, beverage or medicine of the day with plain water Orally Taking Spironolactone 50 MG Tablet 1 tablet Orally Once a day Taking Sodium Polystyrene Sulfonate 15 GM/60ML Suspension 60 ml Orally Once a day Taking Etodolac 200 MG Capsule TAKE 1 CAPSULE BY MOUTH TWICE DAILY WITH FOOD NEEDED Taking Trulicity 0.75 MG/0.5ML Solution Pen-injector as directed Subcutaneous once a week Medication List reviewed and reconciled with the patient * Allergies: C odeine Sulfate: vomitingPercocet: vomitingno[Allergies Verified] Objective: * Vitals: H t: 63, Wt:196, BMI:34.72, BP:136/60, HR:82, Temp:97.3, Ht-cm: 160.02, Wt-k.9. * P ast Orders: Lab:Hemoglobin A1c * Collection Date 06/22/2024 02/20/2024 12/12/2023 Collection Time 09:23 AM 09:43 AM 09:29 AM Order Date 06/22/2024 02/20/2024 12/12/2023 Hemoglobin A1c % 7.5 H (Ref Range: <6.0 %) 7.0 H (Ref Range: <6.0 %) 7.0 H (Ref Range: <6.0 %) Estimated Average Glucose 169 (Ref Range: mg/dL) 154 (Ref Range: mg/dL) 154 (Ref Range: mg/dL) * Lab:Complete Blood Count Aut o Diff * Collection Date 06/22/2024 02/20/2024 12/12/2023 Collection Time 09:23 AM 09:43 AM 09:29 AM Order Date 06/22/2024 02/20/2024 12/12/2023 White Blood Count 10.8 (Ref Range: 4.8-10.8 X10*3/uL) 9.9 (Ref Range: 4.8-10.8 X10*3/uL) 9.1 (Ref Range: 4.8-10.8 X10*3/uL) Red Blood Count 4.66 (Ref Range: 4.20-5.50 X10*6/uL) 4.67 (Ref Range: 4.20-5.50 X10*6/uL) 4.69 (Ref Range: 4.20-5.50 X10*6/uL) Hemoglobin 12.7 (Ref Range: 12.0-16.0 g/dl) 12.8 (Ref Range: 12.0-16.0 g/dl) 12.9 (Ref Range: 12.0-16.0 g/dl) Hematocrit 40.1 (Ref Range: 37.0-47.0 %) 40.3 (Ref Range: 37.0-47.0 %) 40.1 (Ref Range: 37.0-47.0 %) Mean Corpuscular Volume 86.1 (Ref Range: 80.0-98.0 fL) 86.3 (Ref Range: 80.0-98.0 fL) 85.5 (Ref Range: 80.0-98.0 fL) Mean Corpuscular Hemoglobin 27.3 (Ref Range: 27.0-33.0 pg) 27.4 (Ref Range: 27.0-33.0 pg) 27.5 (Ref Range: 27.0-33.0 pg) Mean Corpuscular HGB Conc 31.7 (Ref Range: 31.0-35.0 g/dl) 31.8 (Ref Range: 31.0-35.0 g/dl) 32.2 (Ref Range: 31.0-35.0 g/dl) Red Cell Distribution Width 13.8 (Ref Range: 11.0-16.0 %) 14.2 (Ref Range: 11.0-16.0 %) 14.1 (Ref Range: 11.0-16.0 %) Platelet Count 324 (Ref Range: 160-400 X10*3/uL) 333 (Ref Range: 160-400 X10*3/uL) 337 (Ref Range: 160-400 X10*3/uL) Mean Platelet Volume 8.9 L (Ref Range: 9.4-12.3 fL) 9.3 L (Ref Range: 9.4-12.3 fL) 9.1 L (Ref Range: 9.4-12.3 fL) Neutrophils Percent Auto 68.2 (Ref Range: 45-73 %) 69.6 (Ref Range: 45-73 %) 68.4 (Ref Range: 45-73 %) Imm Gran Pct Auto 1.4 H (Ref Range: 0.0-0.4 %) 1.0 H (Ref Range: 0.0-0.4 %) 1.3 H (Ref Range: 0.0-0.4 %) Lymphocytes Percent Auto 20.2 (Ref Range: 20-40 %) 20.2 (Ref Range: 20-40 %) 20.4 (Ref Range: 20-40 %) Monocytes Percent Auto 7.0 (Ref Range: 2-11 %) 6.3 (Ref Range: 2-11 %) 6.7 (Ref Range: 2-11 %) Eosinophils Percent Auto 2.4 (Ref Range: 0-4 %) 1.9 (Ref Range: 0-4 %) 2.4 (Ref Range: 0-4 %) Basophils Percent Auto 0.8 (Ref Range: 0-2 %) 1.0 (Ref Range: 0-2 %) 0.8 (Ref Range: 0-2 %) NRBC Pct Auto 0.0 (Ref Range: 0.0-0.2 /100WBC) 0.0 (Ref Range: 0.0-0.2 /100WBC) 0.0 (Ref Range: 0.0-0.2 /100WBC) Neutrophils Absolute Auto 7.4 (Ref Range: 2.0-8.3 x10*3/uL) 6.9 (Ref Range: 2.0-8.3 x10*3/uL) 6.2 (Ref Range: 2.0-8.3 x10*3/uL) Imm Gran Abs Auto 0.15 H (Ref Range: 0.00-0.03 X10*3/uL) 0.10 H (Ref Range: 0.00-0.03 X10*3/uL) 0.12 H (Ref Range: 0.00-0.03 X10*3/uL) Lymphocytes Absolute Auto 2.2 (Ref Range: 1.2-4.9 X10*3/uL) 2.0 (Ref Range: 1.2-4.9 X10*3/uL) 1.9 (Ref Range: 1.2-4.9 X10*3/uL) Monocytes Absolute Auto 0.8 (Ref Range: 0.1-1.2 X10*3/uL) 0.6 (Ref Range: 0.1-1.2 X10*3/uL) 0.6 (Ref Range: 0.1-1.2 X10*3/uL) Eosinophils Absolute Auto 0.3 (Ref Range: 0.0-0.4 X10*3/uL) 0.2 (Ref Range: 0.0-0.4 X10*3/uL) 0.2 (Ref Range: 0.0-0.4 X10*3/uL) Basophils Absolute Auto 0.1 (Ref Range: 0.0-0.2 X10*3/uL) 0.1 (Ref Range: 0.0-0.2 X10*3/uL) 0.1 (Ref Range: 0.0-0.2 X10*3/uL) NRBC Abs Auto 0.000 (Ref Range: 0.0-0.012 X10*3/uL) 0.000 (Ref Range: 0.0-0.012 X10*3/uL) 0.000 (Ref Range: 0.0-0.012 X10*3/uL) * Lab:Radha Soriano. Major l Fast * Collection Date 06/22/2024 02/20/2024 12/12/2023 Collection Time 09:23 AM 09:43 AM 09:29 AM Order Date 06/22/2024 02/20/2024 12/12/2023 Sodium 143 (Ref Range: 135-145 mmol/L) 140 (Ref Range: 135-145 mmol/L) 141 (Ref Range: 135-145 mmol/L) Bilirubin Total 0.3 (Ref Range: 0.0-1.0 mg/dL) 0.3 (Ref Range: 0.0-1.0 mg/dL) 0.3 (Ref Range: 0.0-1.0 mg/dL) Aspartate Amino Transferase 22 (Ref Range: 5-31 U/L) 18 (Ref Range: 5-31 U/L) 17 (Ref Range: 5-31 U/L) Alanine Aminotransferase 21 (Ref Range: 0-31 U/L) 16 (Ref Range: 0-31 U/L) 13 (Ref Range: 0-31 U/L) Total Protein 7.4 (Ref Range: 6.5-8.0 g/dL) 7.5 (Ref Range: 6.5-8.0 g/dL) 7.3 (Ref Range: 6.5-8.0 g/dL) Albumin Level 4.2 (Ref Range: 3.5-5.0 g/dL) 4.2 (Ref Range: 3.5-5.0 g/dL) 4.1 (Ref Range: 3.5-5.0 g/dL) Alkaline Phosphatase 79 (Ref Range: 39-117 U/L) 75 (Ref Range: 39-117 U/L) 68 (Ref Range: 39-117 U/L) Potassium 4.5 (Ref Range: 3.3-5.1 mmol/L) 4.2 (Ref Range: 3.3-5.1 mmol/L) 4.8 (Ref Range: 3.3-5.1 mmol/L) Chloride 106 (Ref Range: 96-108 mmol/L) 103 (Ref Range: 96-108 mmol/L) 105 (Ref Range: 96-108 mmol/L) Carbon Dioxide 27 (Ref Range: 22-29 mmol/L) 26 (Ref Range: 22-29 mmol/L) 27 (Ref Range: 22-29 mmol/L) Anion Gap 15 (Ref Range: 12-20) 15 (Ref Range: 12-20) 14 (Ref Range: 12-20) Blood Urea Nitrogen 32 H (Ref Range: 9-16 mg/dL) 35 H (Ref Range: 9-16 mg/dL) 34 H (Ref Range: 9-16 mg/dL) Creatinine 1.27 (Ref Range: 0.5-1.4 mg/dL) 1.14 (Ref Range: 0.5-1.4 mg/dL) 1.22 (Ref Range: 0.5-1.4 mg/dL) Estimated Glomerular Filt Rate 41 46 43 Glucose Fasting 156 H (Ref Range: 60-99 mg/dL) 154 H (Ref Range: 60-99 mg/dL) 146 H (Ref Range: 60-99 mg/dL) Calcium 10.0 (Ref Range: 8.4-10.2 mg/dL) 10.5 H (Ref Range: 8.4-10.2 mg/dL) 9.6 (Ref Range: 8.4-10.2 mg/dL) * Lab:Lipid Panel * Collection Date 06/22/2024 02/20/2024 12/12/2023 Collection Time 09:23 AM 09:43 AM 09:29 AM Order Date 06/22/2024 02/20/2024 12/12/2023 Triglycerides 97 (Ref Range: <150 mg/dL) 168 H (Ref Range: <150 mg/dL) 109 (Ref Range: <150 mg/dL) Cholesterol 169 (Ref Range: <200 mg/dL) 167 (Ref Range: <200 mg/dL) 156 (Ref Range: <200 mg/dL) LDL Cholesterol Calculated 90 (Ref Range: <100 mg/dL) 82 (Ref Range: <100 mg/dL) 79 (Ref Range: <100 mg/dL) HDL Cholesterol 60 (Ref Range: >40 mg/dL) 52 (Ref Range: >40 mg/dL) 56 (Ref Range: >40 mg/dL) * Lab:Microalbumin, Random * Collection Date 06/22/2024 02/20/2024 12/12/2023 Collection Time 09:20 AM 09:27 AM 09:30 AM Order Date 06/22/2024 02/20/2024 12/12/2023 Creatinine Urine 143.28 (Ref Range: mg/dL) 111.94 (Ref Range: mg/dL) 82.15 (Ref Range: mg/dL) Microalbumin Urine 47.0 (Ref Range: mg/L) 34.0 (Ref Range: mg/L) 21.0 (Ref Range: mg/L) Microalbum Creatinine Ratio Ur 32.8 H (Ref Range: <30 ug/mg cr) 30.3 H (Ref Range: <30 ug/mg cr) 25.5 (Ref Range: <30 ug/mg cr) * Imaging:Diabetic Eye Exam * Performed Date 06/03/2024 Order Date 06/03/2024 05/10/2022 05/10/2023 Result: undefined Normal Normal * Examination: G eneral Examination: GENERAL APPEARANCE: p leasant, well nourished, well developed, in no acute distress, calm and relaxed, obese, elderly woman. HEAD: a traumatic, normocephalic. EYES: e [...] vascular bruits. LUNGS: c lear to auscultation . BREASTS: no masses palpable bilaterally. ABDOMEN: b owel sounds normal, no ascites, no organomegaly, no mass, centripital obesity. RECTAL EXAM: n ot examined. MUSCULOSKELETAL: e xtremities unremarkable, no clubbing, cyanosis or edema. PERIPHERAL PULSES: n ormal. NEUROLOGIC: a lert and oriented, cranial nerves 2-12 grossly intact, deep tendon reflexes 2+ symmetrical, motor strength normal upper and lower extremities, sensory exam intact. PSYCH: a lert, oriented, thought process logical, goal directed, speech clear, good eye contact, cooperative with exam, cognitive function intact. ? Assessment: * Assessment: 1. C ontrolled type 2 diabetes mellitus without complication, without long-term current use of insulin - E11.9 (Primary) N otes :She is doing well. She is compliant with her medications. Her weight is stable. Her hemoglobin A1c is 7.5. I have increased the dose of the trulicity I strongly recommended modifications to her lifestyle including exercise and weight loss. 2 . R ight elbow pain - M25.521 N otes :The right elbow was normal to examination today. The history sounds like an episode of gout.? She was instructed to come to the office at once if it recurs. A uric acid level has been ordered. There was no sign of abnormality in the elbow today. 3 . O besity (BMI 30.0-34.9) - E66.9 N otes :Her weight is stable and her body mass index is 34.7. We reviewed her weight loss strategy. We discussed modifications to lifestyle that could cause weight loss. 4 . M ixed hyperlipidemia - E78.2 N otes :Her fasting lipid profile shows good control of her lipids which are in the normal range. No change in her regimen as needed. 5 . E ssential hypertension - I10 N otes :Her blood pressure is currently stable and no change in her regimen was made. I recommended aggressive weight loss and sodium restriction. 6 . M oderate asthma, unspecified whether complicated, unspecified whether persistent - J45.909 N otes :She has had no attacks of asthma recently. He has had no flareups of allergies. Her breathing was within normal limits with good air movement today. Mild occasional inspiratory wheezing was noted today in the right lung. Plan: * Treatment: 2. R ight elbow pain I maging: XR elbow RT min 3V 3. O thers Continue metFORMIN HCl Tablet, 500 [...] BY MOUTH TWICE DAILY WITH FOOD NEEDED; S tart Trulicity Solution Auto-injector, 1.5 MG/0.5ML, as directed, Subcutaneous, weekly, 28 days, 4 Applicator, Refills 6, Notes to Pharmacist: disp 4 weeks pens and needles. * Labs: * L ab: PROFILE, FASTING (COMPREHENSIVE METABOLIC) L ab: CBC WITH AUTO DIFF L ab: Uric Acid L ab: Lipid Panel L ab: Microalbumin, Random L ab: Hemoglobin A1c * Procedure Codes: * Preventive Medicine: Counseling: [...] without too much effort. T reatment Goals B lood Sugars less than < 115, HbA1C < 7.0. B arriers n o barriers. S elf-Managment Goals W ork on weight loss, with a goal of losing 1 lb per week. * Follow Up: A s Scheduled (Reason: OV, Annual Exam) * Images: * Sign off status: Completed true * Provider: Jovon Sumner MD Date: 0 07/01/2024 Generated for Printi ng/Faselenag/eTransmitting on: 09:16 AM EDT History and Physical Notes * HPI (History of Present Illness) Category Sub-Category Detail Notes COVID-19 Screening Questions Have you had any new onset fever, chills, cough, congestion, sore throat, shortness of breath, muscle aches?: No Examination Category Sub-Category Detail Notes General Examination GENERAL APPEARANCE: pleasant , well nourished, well developed, in no acute distress, calm and relaxed, obese, elderly woman HEAD: atraumatic, normocep halic EYES: eomi, perrla, anicte alfredito, conjugate EARS: normal NOSE: septum intact NECK/THYROID: no jugular venous di stention, no carotid bruit, thyroid normal HEART: no clicks, gallops, murmurs, or rubs, regular rhythm, S1, S2 normal, no s3, or vascular bruits LUNGS: clear to auscultatio n ABDOMEN: bowel sounds normal, no ascites, no organomegaly, no mass, centripital obesity NEUROLOGIC: alert and oriented, cranial nerves 2-12 grossly intact, deep tendon reflexes 2+ symmetrical, motor strength normal upper and lower extremities, sensory exam intact SKIN: no suspicious lesion s, anicteric PERIPHERAL PULSES: normal BREASTS: no masses palpable b ilaterally MUSCULOSKELETAL: extremities unremark able, no clubbing, cyanosis or edema LYMPH NODES: no enlarged lymph no tanya,spleen normal RECTAL EXAM: not examined PSYCH: alert, oriented, tho ught process logical, goal directed, speech clear, good eye contact, cooperative with exam, cognitive function intact ORAL CAVITY: normal, unremarkable
--- OUTSIDE RECORDS SUMMARY | 2024-10-26 10:38 | XMS_ITS ---
Author Organization Corey Sumner III, MD Address [address] [place] [address] Care Team Providers Care Front Desk Administrator Name Role Phone Dr. Corey Sumner III Primary Care Provider [phone] REASON FOR VISIT Rx Request Medications Medication SIG (Take, Route, Frequency, Duration) Notes Start Date End Date Status Montelukast Sodium 10 MG TAKE 1 TABLET B Y MOUTH EVERY EVENING for 90 Unknown Lisinopril 40 MG TAKE 1 TABLET BY COLBY TH EVERY DAY for 90 Unknown Simvastatin 20 MG TAKE 1 TABLET BY COLBY TH EVERY DAY for 90 Unknown hydroCHLOROthiazide 25 MG TAKE 1 TABLET BY MOUTH EVERY DAY for 90 Unknown metFORMIN HCl 500 MG TAKE 2 TABLETS BY MOUTH TWICE DAILY for 90 Unknown Etodolac 200 MG TAKE 1 CAPSULE BY MOUTH TWICE DAILY WITH FOOD NEEDED Unknown Pioglitazone HCl 30 MG TAKE 1 TABLET BY MOUTH EVERY DAY Orally Once a day for 90 days Unknown Sodium Polystyrene Sulfonate 15 GM/60ML 60 ml Orally Once a day 01/11/2022 Unknown Spironolactone 50 MG 1 tablet Orally Onc e a day 10/19/2020 Unknown Trulicity 1.5 MG/0.5ML 0.5ml once a week Subcutaneous weekly for 90 days Active Alendronate Sodium 70 MG 1 tablet 30 min utes before the first food, beverage or medicine of the day with plain water Orally Unknown Albuterol Sulfate HFA 108 (9 0 Base) MCG/ACT 2 puffs as needed Inhalation four times a day prn wheezing 02/09/2019 Unknown Vitamin E 400 UNIT 1 capsule Orally Onc e a day Unknown Aspirin 325 MG 1 tablet Orally Once a day Unknown Social History Sex Assigned At : Social History Observation Description Sex Assigned At Female Encounters Encounter Location Date Provider Diagnosis Corey Sumner III, MD [address] [place] [address] [place] [address] 10/26/2024 Corey Castellanorne Controlled type 2 diabetes mellitus without complication, without long-term current use of insulin E11.9 Assessments Encounter Date Diagnosis (ICD Code) Assessment Notes Treatment Notes Treatment Clinical Notes 10/26/2024 Controlled type 2 diabetes mellitus without complication, without long-term current use of insulin (ICD-10 - E11.9) She is doing well. She is compliant with her medications. Her weight is stable. Her hemoglobin A1c is 7.5. I have increased the dose of the trulicity I strongly recommended modifications to her lifestyle including exercise and weight loss. Plan Of Treatment Medication Medication Name Sig Start Date Stop Date Notes Trulicity 1.5 MG/0.5ML 0.5ml once a week Subcutaneous weekly for 90 days Trulicity 0.75 MG/0.5ML as directed Subc utaneous once a week 08/28/2023 Next Appt Details Provider Name:Corey Sumner , 03/31/2025 02:30:00 PM, [address] [place] [address] [address], [place], [address], Provider Name:Corey Sumner , 11/29/2025 02:00:00 PM, [address] [place] [address] [address], [place], [address], Progress Notes * Pam MARQUEZDOB:09/1950 (74 yo F)Acc No.[id number]:10/26/2024 Patient: Tae Pam WALTON :1950 A ge:74 Y S ex:Female Address:[address], [place], [address] * Refills Stop Trulicity Solution Pen-injector, 0.75 MG/0.5ML, Subcutaneous, as directed, once a week Refill Trulicity Solution Auto-injector, 1.5 MG/0.5ML, Subcutaneous, 12, 0.5ml once a week, weekly, 90 days, Refills=3 Subjective: * Chief Complaints: * R x Request * Medical History: * Surgical History: * Hospitalization/Major Diagno stic Procedure: * Medications: D iscontinuedTrulicity 0.75 MG/0.5ML Solution Pen-injector as directed Subcutaneous once a week Discontinued Trulicity 0.75 MG/0.5ML Solution Pen-injector as directed Subcutaneous once a week UnknownAspirin 325 MG Tablet 1 tablet Orally Once [...] WITH FOOD NEEDED Pioglitazone HCl 30 MG Tablet TAKE 1 TABLET BY MOUTH EVERY DAY Orally Once a day Simvastatin 20 MG Tablet TAKE 1 TABLET BY MOUTH EVERY DAY Lisinopril 40 MG Tablet TAKE 1 TABLET BY MOUTH EVERY DAY metFORMIN HCl 500 MG Tablet TAKE 2 TABLETS BY MOUTH TWICE DAILY hydroCHLOROthiazide 25 MG Tablet TAKE 1 TABLET BY MOUTH EVERY DAY Montelukast Sodium 10 MG Tablet TAKE 1 TABLET BY MOUTH EVERY EVENING Trulicity 1.5 MG/0.5ML Solution Auto-injector as directed Subcutaneous weekly Unknown Aspirin 325 MG Tablet 1 tablet Orally Once a day Unknown Vitamin E 400 UNIT Capsule 1 capsule Orally Once a day Unknown Albuterol Sulfate HFA 108 (90 Base) MCG/ACT Aerosol Solution 2 puffs as needed Inhalation four times a day prn wheezing Unknown Alendronate Sodium 70 MG Tablet 1 tablet 30 minutes before the first food, beverage or medicine of the day with plain water Orally Unknown Spironolactone 50 MG Tablet 1 tablet Orally Once a day Unknown Sodium Polystyrene Sulfonate 15 GM/60ML Suspension 60 ml Orally Once a day Unknown Etodolac 200 MG Capsule TAKE 1 CAPSULE BY MOUTH TWICE DAILY WITH FOOD NEEDED Unknown Pioglitazone HCl 30 MG Tablet TAKE 1 TABLET BY MOUTH EVERY DAY Orally Once a day Unknown Simvastatin 20 MG Tablet TAKE 1 TABLET BY MOUTH EVERY DAY Unknown Lisinopril 40 MG Tablet TAKE 1 TABLET BY MOUTH EVERY DAY Unknown metFORMIN HCl 500 MG Tablet TAKE 2 TABLETS BY MOUTH TWICE DAILY Unknown hydroCHLOROthiazide 25 MG Tablet TAKE 1 TABLET BY MOUTH EVERY DAY Unknown Montelukast Sodium 10 MG Tablet TAKE 1 TABLET BY MOUTH EVERY EVENING Unknown Trulicity 1.5 MG/0.5ML Solution Auto-injector as directed Subcutaneous weekly Objective: * Vitals: * Physical Examination: Assessment: * Assessment: 1. C ontrolled type 2 diabetes mellitus without complication, without long-term current use of insulin - E11.9 N otes :She is doing well. She is compliant with her medications. Her weight is stable. Her hemoglobin A1c is 7.5. I have increased the dose of the trulicity I strongly recommended modifications to her lifestyle including exercise and weight loss. Plan: * Treatment: 2. O thers Refill Trulicity Solution Auto-injector, 1.5 MG/0.5ML, 0.5ml once a week, Subcutaneous, weekly, 90 days, 12, Refills 3. * Procedure Codes: * true * Date: Generated for Madelyn betts/Kenny/Koryitting on: 1 09:16 AM EDT
--- OUTSIDE RECORDS SUMMARY | 2024-11-25 10:00 | XMS_ITS ---
Author Organization Corey Sumner III, MD Address [address] [place] [address] [place] [address] Care Team Providers Care Chief Nursing Executive Name Role Phone Dr. Corey Sumner III Primary Care Provider Allergies Allergen (clinical drug ingredient) Drug/Non Drug Allergy documented on EMR Reaction Allergy Type Onset Date Status acetaminophen / oxycodone Percocet vomiting Drug Allergy Active codeine Codeine Sulfate vomiting Drug Allergy A ctive Results Component Value Reference Range Notes XR ankle RT 2V (Not yet revi ewed by provider) Interpretation: Performing Lab: Notes/Report: [address] [address] XRay Report Signed Patient: Pam Marquez MR#: [id number] : 1950 Acct:[id number] Age/Sex: 74 / F ADM Date: 11/25/24 Loc: HO.NATHALIE Attending Dr: Corey Sumner MD Ordering Physician: Corey Sumner MD Date of Service: 11/25/24 Procedure(s): XR ankle RT 2V Accession Number(s): [id number] cc: Corey Sumner MD EXAMINATION: XR ANKLE 2 VIEWS RIGHT HISTORY: PAIN COMPARISON: There are no prior studies available for comparison. FINDINGS: Three views of the right ankle are submitted. Osseous mineralization is normal. There is evidence of prior internal fixation of the distal fibula. There is no acute fracture or dislocation. There is severe degenerative change of the tibiotalar joint with joint space narrowing and osteophyte formation. There is diffuse mild soft tissue swelling. XR/XR ankle RT 2V IMPRESSION: Severe osteoarthritis of the tibiotalar articulation. Electronically signed by: Corey Pham MD 11/26/2024 09:53 AM EDT RP Dictated By: Corey Pham MD Signed By: <Electronically signed by Corey Pham MD in OV> 11/26/2453 DD/ 1525 TD/TT: 11/25/24 1530 Surgeon Partner: [place] [id number] XRay Report Signed Patient: Lupillo Marquez MR#: [id number] : 1950 Acct:[id number] Age/Sex: 74 / F ADM Date: 11/25/24 Loc: MART[facility] Attending Dr: Corey Sumner MD Ordering Physician: Corey Sumner MD Date of Service: 11/25/24 Procedure(s): XR ankle RT 2V Accession Number(s): [id number] cc: Corey Sumner MD EXAMINATION: XR ANKL E 2 VIEWS RIGHT HISTORY: PAIN COMPARISON: There ar e no prior studies available for comparison. FINDINGS: Three views of the r ight ankle are submitted. Osseous mineralization is normal. There is evidence of prior internal fixation of the distal fibula. There is no acute fracture or dislocation. There is severe degenerative change of the tibiotalar joint with joint space narrowing and osteophyte forma tion. There is diffuse mild soft tissue swelling. X R/XR ankle RT 2V IMPRESSION: Severe osteoarthriti s of the tibiotalar articulation. Electronically everardo d by: Corey Pham MD 11/26/2024 09:53 AM EDT RP Dictated By: Corey Pham MD Signed By: <Nadeem duke signed by Corey Pham MD in OV> 11/26/24 0953 DD/ 1525 TD/TT: 11/25/24 1530 Surgeon Partner: Reason For Referral Reason Evaluate and Treat Right ankle pain Diagnosis 1 Right ankle pain (M2 5.571) Referral Organization Corey Sumner III, MD Referring Provider First Name Corey Referring Provider Last Name Taisha Referring Provider Speciality Internal M edicine Referred Provider [facility], [facility] Surgeons Referred Provider Specialty Orthopedic [facility] General Notes 11/30/2024 09:43:51 AM > Referral faxed with progress note and Xr of Right Ankle, Andrew 01/05/2025 10:30:34 AM > Spoke with [facility] stated the patient would have to be referred to a foot/ankle specialist they do not treat there. patient was contacted., Carolyn Morales 01/08/2025 02:42:45 PM > Patient returned call from Dr. Sumner office stated she does not want to be seen by [facility] at this time. patient was referred to an urgent ortho clinic if she is experiencing pain and would like immediate care. referral is being closed at this time. Referral Priority Routine REASON FOR VISIT annual exam Medications Medication SIG (Take, Route, Frequency, Duration) Notes Start Date End Date Status metFORMIN HCl 500 MG TAKE 2 TABLETS BY MOUTH TWICE DAILY Active hydroCHLOROthiazide 25 MG TAKE 1 TABLET BY MOUTH EVERY DAY Active Simvastatin 20 MG TAKE 1 TABLET BY COLBY TH EVERY DAY Active Lisinopril 40 MG TAKE 1 TABLET BY COLBY TH EVERY DAY Active Montelukast Sodium 10 MG TAKE 1 TABLET B Y MOUTH EVERY EVENING Active Etodolac 200 MG TAKE 1 CAPSULE BY MOUTH TWICE DAILY WITH FOOD NEEDED Active Pioglitazone HCl 30 MG TAKE 1 TABLET BY MOUTH EVERY DAY Orally Once a day Active Spironolactone 50 MG 1 tablet Orally Onc e a day 10/19/2020 Active Sodium Polystyrene Sulfonate 15 GM/60ML 60 ml Orally Once a day 01/11/2022 Active Albuterol Sulfate HFA 108 (9 0 Base) MCG/ACT 2 puffs as needed Inhalation four times a day prn wheezing 02/09/2019 Active Trulicity 1.5 MG/0.5ML 0.5ml once a week Subcutaneous weekly Active Aspirin 325 MG 1 tablet Orally Once a day Active Vitamin E 400 UNIT 1 capsule Orally Onc e a day Active Alendronate Sodium 70 MG 1 tablet 30 min utes before the first food, beverage or medicine of the day with plain water Orally Active Social History Tobacco Use: Social History Observation Description Date Details (start date - stop date) Never Smoker NA - NA Sex Assigned At : Social History Observation Description Sex Assigned At Female Tobacco Control (Standard) Question Answer Notes Tobacco use: Nonsmoker Additional Findings: Tobacco non-user Aggressive nonsmoker AUDIT-C (Standard) Question Answer Notes Did you have a drink containing alcohol in the p ast year? No Points 0 Interpretation Negative Problems Problem Type SNOMED Code ICD Code Onset Dates Problem Status W/U Status Risk Notes Problem Ankle pain (995445337) Ankle pain (M25.579) Active confirmed I have ordered an x-ray of the ankle which was broken many years ago and referred her to orthopedics for evaluation and management. Vital Signs Temperature 98.9 degrees Fahrenheit 11/26/19 25 Blood pressure systolic 136 mm Hg 11/26/19 25 Blood pressure diastolic 78 mm Hg 025 Heart Rate 84 /min 11/25/2024 Height 63 in 11/25/2024 Weight 198 lbs 11/25/2024 BMI 35.07 kg/m2 11/25/2024 Encounters Encounter Location Date Provider Diagnosis Corey Sumner III, MD [address] [place] [address] [place] [address] 11/25/2024 Corey Sumner Controlled type 2 diabetes mellitus without complication, without long-term current use of insulin E11.9 ; Mixed hyperlipidemia E78.2 ; Obesity (BMI 30.0-34.9) E66.9 ; Ankle pain M25.579 ; Nephrolithiasis N20.0 and Moderate asthma, unspecified whether complicated, unspecified whether persistent J45.909 Assessments Encounter Date Diagnosis (ICD Code) Assessment Notes Treat ment Notes Treatment Clinical Notes 11/25/2024 Controlled type 2 diabetes mellitus without complication, without long-term current use of insulin (ICD-10 - E11.9) Her diabetes is stable. No change in medications was necessary I recommended adherence to a diabetic diet calories aggressive weight loss. 11/25/2024 Mixed hyperlipidemia (ICD-10 - E78.2) Her lipids are currently stable and no change in her regimen was necessary. 11/25/2024 Obesity (BMI 30.0-34.9) (ICD-10 - E66.9) He has gained 2 pounds. Her body mass index is 35. We discussed diet andd nutrition. We made a plan to lose weight at a rate of one half of a pound per week. 11/25/2024 Ankle pain (ICD-10 - M25.579) I have ordered an x-ray of the ankle which was broken many years ago and referred her to orthopedics for evaluation and management. 11/25/2024 Nephrolithiasis (ICD-10 - N20.0) She has had no renal colic. In the last year. She will notify me if this happens. 11/25/2024 Moderate asthma, unspecified whether complicated, unspecified whether persistent (ICD-10 - J45.909) She has had no attacks of asthma recently. He has had no flareups of allergies. Her breathing was within normal limits with good air movement today. Mild occasional inspiratory wheezing was noted today in the right lung. Plan Of Treatment Medication Medication Name Sig Start Date Stop Date Notes metFORMIN HCl 500 MG TAKE 2 TABLETS BY M OUTH TWICE DAILY hydroCHLOROthiazide 25 MG TAKE 1 TABLET BY MOUTH EVERY DAY Simvastatin 20 MG TAKE 1 TABLET BY COLBY TH EVERY DAY Lisinopril 40 MG TAKE 1 TABLET BY COLBY TH EVERY DAY Montelukast Sodium 10 MG TAKE 1 TABLET B Y MOUTH EVERY EVENING Etodolac 200 MG TAKE 1 CAPSULE BY MO UTH TWICE DAILY WITH FOOD NEEDED Pioglitazone HCl 30 MG TAKE 1 TABLET BY MOUTH EVERY DAY Orally Once a day Spironolactone 50 MG 1 tablet Orally Onc e a day 10/19/2020 Sodium Polystyrene Sulfonate 15 GM/60ML 60 ml Orally Once a day 01/11/2022 Albuterol Sulfate HFA 108 (9 0 Base) MCG/ACT 2 puffs as needed Inhalation four times a day prn wheezing 02/09/2019 Trulicity 1.5 MG/0.5ML 0.5ml once a week Subcutaneous weekly Aspirin 325 MG 1 tablet Orally Once a day Vitamin E 400 UNIT 1 capsule Orally Onc e a day Alendronate Sodium 70 MG 1 tablet 30 min utes before the first food, beverage or medicine of the day with plain water Orally Pending Test Test Name Order Date PROFILE, FASTING (COMPREHENSIVE METABOLI C) 11/25/2024 CBC w DIFF 11/25/2024 Lipid Panel 11/25/2024 XR ankle RT 2V 11/25/2024 Hemoglobin A1c 11/25/2024 Referrals Referral Date Details 11/25/2024 11/25/2024, Evaluate and Treat Right ankle pain, [facility] Next Appt Details Follow Up: 4 Months, Reason: OV Provider Name:Corey Sumner , 03/31/2025 02:30:00 PM, [address] [place] [address] [address], [place], [address], Provider Name:Corey Sumner , 11/29/2025 02:00:00 PM, [address] [place] [address] [address], [place], [address], Progress Notes * Pam MARQUEZ MarixaDOB:09/1950 (74 yo F)Acc No.[id number]:11/25/2024 Progress Notes Patient: Pam STRINGER Provider: Jovon Sumner MD :1950 A ge:74 Y S ex:Female Date:11/25/2024 Address:[address] [place] [address], [facility] Subjective: * Chief Complaints: * A nnual exam * HPI: D epression Screening: S he returns to the office at the age of 74 for her annual physical examination.She is followed here for diabetes, hypertension, hyperlipidemia, Raynaud's, obesity and asthma. Since her last visit she notices that her ankles are occasionally painful, more on the right than on the left specifically to range of motion. She has a trace of edema on both sides. She fractured the right ankle many years ago. An x-ray was ordered and she was referred to orthopedics. She has had no difficulty during the pollen season and is breathing comfortably today. She has stopped taking the alendronate she found it to awkward to take in several of her friends had bad experiences with it. She does not wish to continue alendronate.A followup bone density has been ordered. PHQ-9 L ittle interest or pleasure in doing things?Not at all F eeling down, depressed, or hopeless N ot at all T rouble falling or staying asleep, or sleeping too much S everal days F eeling tired or having little energy S everal days P oor appetite or overeating S everal days F eeling bad about yourself or that you are a failure, or have let yourself or your family down N ot at all T rouble concentrating on things, such as reading the newspaper or watching television N ot at all M oving or speaking so slowly that other people could have noticed; or the opposite, being so fidgety or restless that you have been moving around a lot more than usual N ot at all T houghts that you would be better off or of hurting yourself in some way N ot at all T otal Score 3 I nterpretation M inimal Depression C OVID-19 Screening: Questions H ave you had any new onset fever, chills, cough, congestion, sore throat, shortness of breath, muscle aches? N o S FAVIOLA Questions: SDOH Questions I n the past year have you been worried about losing your housing? Y es I n the past year have you or any family members you live with been unable to get any of the following when it was really needed? Check all that apply: N one F all Risk Screening: Fall History H ave you had any falls with injury in the past year? N o H ave you had two or more falls in the past year? N o F all Risk Assessment: O ne fall with injury in the past year * ROS: G eneral/Constitutional: pain A nkles, right worse than left, otherwise only normal aches and pains. C hills d enies. F atigue a dmits. F ever d enies. ? E NT: Decreased hearing d enies. R [...] Muscle aches d enies. P ainful joints R ight ankle.?Sciatica d enies. W eakness d enies. S kin: Itching d enies. R ricardo d enies. S kin lesion(s)?denies. N eurologic: Difficulty speaking d enies. D izziness d enies.?Headache d enies. L ow back pain d enies. P sychiatric: Depressed mood d enies. * Medical History: * Surgical History: r otator cuff tear repair/ right shoulder 11/2008right ankle fracture 1993endocervical polypectomy, [facility], Dr. Duffy 10/2017both eyelids lift 11/2018No history * Hospitalization/Major Diagno stic Procedure: i njured kidney 2015No history * Family History: F ather: 84 yrs, Congestive heart failure, coronary artery disease, angina, diagnosed with CVD. M other: 65 yrs, Hypertension, adult-onset diabetes mellitus, osteoarthritis, breast cancer, diagnosed with HTN, Cancer, DM. S iblings: alive. 1 brother(s) , 1 [...] Social History: T obacco Use: T obacco Control (Standard) T obacco use: N onsmoker A dditional Findings: Tobacco non-user A ggressive nonsmoker D rugs/Alcohol: D rugs H ave you used drugs other than those for medical reasons in the past 12 months? N o D rug/Alcohol: A SELENA-C (Standard) D id you have a drink containing alcohol in the past year? N o P oints 0 I nterpretation N egative S he has been to Don for 48 years. She has 2 children and he has one child. They have one child together. Bertrand has had a DVT. Fiona has osteoarthritis and diabetes mellitus. Karen had a myocardial infarction at age 43. They have 7 grandchildren. She is retired. 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 * Medications: T akingTrulicity 1.5 MG/0.5ML Solution Auto-injector 0.5ml once a week Subcutaneous weekly Aspirin 325 MG Tablet 1 tablet Orally Once a day Vitamin E 400 UNIT Capsule 1 capsule Orally Once a day Albuterol Sulfate HFA 108 (90 Base) MCG/ACT Aerosol Solution 2 puffs as needed Inhalation four times a day prn wheezing Spironolactone 50 MG Tablet 1 tablet Orally [...] 1 TABLET BY MOUTH EVERY EVENING Taking Trulicity 1.5 MG/0.5ML Solution Auto-injector 0.5ml once a week Subcutaneous weekly Taking Aspirin 325 MG Tablet 1 tablet Orally Once a day Taking Vitamin E 400 UNIT Capsule 1 capsule Orally Once a day Taking Albuterol Sulfate HFA 108 (90 Base) MCG/ACT Aerosol Solution 2 puffs as needed Inhalation four times a day prn wheezing Taking Spironolactone 50 MG Tablet 1 tablet Orally Once a day Taking Sodium Polystyrene Sulfonate 15 GM/60ML Suspension 60 ml Orally Once a day Taking Etodolac 200 MG Capsule TAKE 1 CAPSULE BY MOUTH TWICE DAILY WITH FOOD NEEDED Taking Pioglitazone HCl 30 MG Tablet TAKE 1 TABLET BY MOUTH EVERY DAY Orally Once a day Taking Simvastatin 20 MG Tablet TAKE 1 TABLET BY MOUTH EVERY DAY Taking Lisinopril 40 MG Tablet TAKE 1 TABLET BY MOUTH EVERY DAY Taking metFORMIN HCl 500 MG Tablet TAKE 2 TABLETS BY MOUTH TWICE DAILY Taking hydroCHLOROthiazide 25 MG Tablet TAKE 1 TABLET BY MOUTH EVERY DAY Taking Montelukast Sodium 10 MG Tablet TAKE 1 TABLET BY MOUTH EVERY EVENING Not-Taking/PRNAlendronate Sodium 70 MG Tablet 1 tablet 30 minutes before the first food, beverage or medicine of the day with plain water Orally Medication List reviewed and reconciled with the patientNot-Taking/PRN Alendronate Sodium 70 MG Tablet 1 tablet 30 minutes before the first food, beverage or medicine of the day with plain water Orally Medication List reviewed and reconciled with the patient * Allergies: C odeine Sulfate: vomitingPercocet: vomitingno[Allergies Verified] Objective: * Vitals: H t: 63, Wt:198, BMI:35.07, BP:136/78, HR:84, Temp:98.9, Ht-cm: 160.02, Wt-k.81. * P ast Orders: Lab:Complete Blood Count Aut o Diff * Collection Date 11/18/2024 06/22/2024 02/20/2024 Collection Time 09:21 AM 09:23 AM 09:43 AM Order Date 11/18/2024 06/22/2024 02/20/2024 White Blood Count 9.4 (Ref Range: 4.8-10.8 X10*3/uL) 10.8 (Ref Range: 4.8-10.8 X10*3/uL) 9.9 (Ref Range: 4.8-10.8 X10*3/uL) Red Blood Count 4.82 (Ref Range: 4.20-5.50 X10*6/uL) 4.66 (Ref Range: 4.20-5.50 X10*6/uL) 4.67 (Ref Range: 4.20-5.50 X10*6/uL) Hemoglobin 13.1 (Ref Range: 12.0-16.0 g/dl) 12.7 (Ref Range: 12.0-16.0 g/dl) 12.8 (Ref Range: 12.0-16.0 g/dl) Hematocrit 41.7 (Ref Range: 37.0-47.0 %) 40.1 (Ref Range: 37.0-47.0 %) 40.3 (Ref Range: 37.0-47.0 %) Mean Corpuscular Volume 86.5 (Ref Range: 80.0-98.0 fL) 86.1 (Ref Range: 80.0-98.0 fL) 86.3 (Ref Range: 80.0-98.0 fL) Mean Corpuscular Hemoglobin 27.2 (Ref Range: 27.0-33.0 pg) 27.3 (Ref Range: 27.0-33.0 pg) 27.4 (Ref Range: 27.0-33.0 pg) Mean Corpuscular HGB Conc 31.4 (Ref Range: 31.0-35.0 g/dl) 31.7 (Ref Range: 31.0-35.0 g/dl) 31.8 (Ref Range: 31.0-35.0 g/dl) Red Cell Distribution Width 13.6 (Ref Range: 11.0-16.0 %) 13.8 (Ref Range: 11.0-16.0 %) 14.2 (Ref Range: 11.0-16.0 %) Platelet Count 321 (Ref Range: 160-400 X10*3/uL) 324 (Ref Range: 160-400 X10*3/uL) 333 (Ref Range: 160-400 X10*3/uL) Mean Platelet Volume 9.1 L (Ref Range: 9.4-12.3 fL) 8.9 L (Ref Range: 9.4-12.3 fL) 9.3 L (Ref Range: 9.4-12.3 fL) Neutrophils Percent Auto 64.7 (Ref Range: 45-73 %) 68.2 (Ref Range: 45-73 %) 69.6 (Ref Range: 45-73 %) Imm Gran Pct Auto 1.2 H (Ref Range: 0.0-0.4 %) 1.4 H (Ref Range: 0.0-0.4 %) 1.0 H (Ref Range: 0.0-0.4 %) Lymphocytes Percent Auto 23.0 (Ref Range: 20-40 %) 20.2 (Ref Range: 20-40 %) 20.2 (Ref Range: 20-40 %) Monocytes Percent Auto 7.0 (Ref Range: 2-11 %) 7.0 (Ref Range: 2-11 %) 6.3 (Ref Range: 2-11 %) Eosinophils Percent Auto 3.2 (Ref Range: 0-4 %) 2.4 (Ref Range: 0-4 %) 1.9 (Ref Range: 0-4 %) Basophils Percent Auto 0.9 (Ref Range: 0-2 %) 0.8 (Ref Range: 0-2 %) 1.0 (Ref Range: 0-2 %) NRBC Pct Auto 0.0 (Ref Range: 0.0-0.2 /100WBC) 0.0 (Ref Range: 0.0-0.2 /100WBC) 0.0 (Ref Range: 0.0-0.2 /100WBC) Neutrophils Absolute Auto 6.1 (Ref Range: 2.0-8.3 x10*3/uL) 7.4 (Ref Range: 2.0-8.3 x10*3/uL) 6.9 (Ref Range: 2.0-8.3 x10*3/uL) Imm Gran Abs Auto 0.11 H (Ref Range: 0.00-0.03 X10*3/uL) 0.15 H (Ref Range: 0.00-0.03 X10*3/uL) 0.10 H (Ref Range: 0.00-0.03 X10*3/uL) Lymphocytes Absolute Auto 2.2 (Ref Range: 1.2-4.9 X10*3/uL) 2.2 (Ref Range: 1.2-4.9 X10*3/uL) 2.0 (Ref Range: 1.2-4.9 X10*3/uL) Monocytes Absolute Auto 0.7 (Ref Range: 0.1-1.2 X10*3/uL) 0.8 (Ref Range: 0.1-1.2 X10*3/uL) 0.6 (Ref Range: 0.1-1.2 X10*3/uL) Eosinophils Absolute Auto 0.3 (Ref Range: 0.0-0.4 X10*3/uL) 0.3 (Ref Range: 0.0-0.4 X10*3/uL) 0.2 (Ref Range: 0.0-0.4 X10*3/uL) Basophils Absolute Auto 0.1 (Ref Range: 0.0-0.2 X10*3/uL) 0.1 (Ref Range: 0.0-0.2 X10*3/uL) 0.1 (Ref Range: 0.0-0.2 X10*3/uL) NRBC Abs Auto 0.000 (Ref Range: 0.0-0.012 X10*3/uL) 0.000 (Ref Range: 0.0-0.012 X10*3/uL) 0.000 (Ref Range: 0.0-0.012 X10*3/uL) * Examination: G eneral Examination: GENERAL APPEARANCE: p leasant, well nourished, well developed, in no acute distress, calm and relaxed, obese, , woman. HEAD: a traumatic, normocephalic. EYES: [...] e xtremities unremarkable, no clubbing, cyanosis or edema, Pain and decreased range of motion right ankle. PERIPHERAL PULSES: n ormal. NEUROLOGIC: a lert and oriented, cranial nerves 2-12 grossly intact, deep tendon reflexes 2+ symmetrical, motor strength normal upper and lower extremities, sensory exam intact. PSYCH: a lert, oriented. Assessment: * Assessment: 1. C ontrolled type 2 diabetes mellitus without complication, without long-term current use of insulin - E11.9 (Primary) N otes :Her diabetes is stable. No change in medications was necessary I recommended adherence to a diabetic diet calories aggressive weight loss. 2 . M ixed hyperlipidemia - E78.2 N otes :Her lipids are currently stable and no change in her regimen was necessary. 3 . O besity (BMI 30.0-34.9) - E66.9 N otes :He has gained 2 pounds. Her body mass index is 35. We discussed diet andd nutrition.? We made a plan to lose weight at a rate of one half of a pound per week. 4 . A nkle pain - M25.579 N otes :I have ordered an x-ray of the ankle which was broken many years ago and referred her to orthopedics for evaluation and management. 5 . N ephrolithiasis - N20.0 N otes :She has had no renal colic. In the last year. She will notify me if this happens. 6 . M oderate asthma, unspecified whether [...] PROFILE, FASTING (COMPREHENSIVE METABOLIC) L AB: CBC w DIFF L AB: Lipid Panel L AB: Hemoglobin A1c 3. O besity (BMI 30.0-34.9) L AB: PROFILE, FASTING (COMPREHENSIVE METABOLIC) L AB: CBC w DIFF L AB: Lipid Panel L AB: Hemoglobin A1c 4. A nkle pain I maging: XR ankle RT 2V (Performed Date - 11/25/2024) 5. O thers Continue Trulicity Solution Auto-injector, 1.5 MG/0.5ML, 0.5ml once a week, Subcutaneous, weekly;?Continue Aspirin Tablet, 325 MG, 1 tablet, Orally, Once a day; C ontinue Vitamin E Capsule, 400 UNIT, 1 capsule, Orally, Once a day; C ontinue Albuterol Sulfate HFA Aerosol Solution, 108 (90 Base) MCG/ACT, 2 puffs as needed, Inhalation, four times a day prn wheezing; C ontinue Spironolactone Tablet, 50 MG, 1 tablet, Orally, Once a day; C ontinue Sodium Polystyrene Sulfonate Suspension, 15 GM/60ML, 60 ml, Orally, Once a day; C ontinue Etodolac Capsule, 200 MG, TAKE 1 CAPSULE BY MOUTH TWICE DAILY WITH FOOD NEEDED; C ontinue Pioglitazone HCl Tablet, 30 MG, TAKE 1 TABLET BY MOUTH EVERY DAY, Orally, Once a day; C ontinue Simvastatin Tablet, 20 MG, TAKE 1 TABLET BY MOUTH EVERY DAY; C ontinue Lisinopril Tablet, 40 MG, TAKE 1 TABLET BY MOUTH EVERY DAY; C ontinue metFORMIN HCl Tablet, 500 MG, TAKE 2 TABLETS BY MOUTH TWICE DAILY; C ontinue hydroCHLOROthiazide Tablet, 25 MG, TAKE 1 TABLET BY MOUTH EVERY DAY; C ontinue Montelukast Sodium Tablet, 10 MG, TAKE 1 TABLET BY MOUTH EVERY EVENING. ? Referral To:[facility] Orthopedic Surgery Reason:Evaluate and Treat Right ankle pain * Procedure Codes: * Preventive Medicine: Counseling: [...] * Provider: Jovon Sumner MD Date: 0 11/25/2024 Generated for Madelyn betts/Kenny/eTransmitting on: 09:16 AM EDT History and Physical Notes * HPI (History of Present Illness) Category Sub-Category Detail Notes Depression Screening PHQ-9 Little inte rest or pleasure in doing things: Not at all Feeling down, depressed, or hopeless: No t at all Trouble falling or staying asleep, or sl eeping too much: Several days Feeling tired or having little energy: S everal days Poor appetite or overeating: Several day s Feeling bad about yourself o r that you are a failure, or have let yourself or your family down: Not at all Trouble concentrating on thi ngs, such as reading the newspaper or watching television: Not at all Moving or speaking so slowly that other people could have noticed; or the opposite, being so fidgety or restless that you have been moving around a lot more than usual: Not at all Thoughts that you would be b [place] off or of hurting yourself in some way: Not at all Total Score: 3 Interpretation: Minimal Depression Fall Risk Screening Fall History Have you had any falls with injury in the past year?: No Have you had two or more falls in the pa st year?: No Fall Risk Assessment:: One fall with inj ury in the past year COVID-19 Screening Questions Have you had any new onset fever, chills, cough, congestion, sore throat, shortness of breath, muscle aches?: No SDOH Questions SDOH Questions In the past year have you been worried about losing your housing?: Yes In the past year have you or any family members you live with been unable to get any of the following when it was really needed? Check all that apply:: None Examination Category Sub-Category Detail Notes General Examination GENERAL APPEARANCE: pleasant , well nourished, well developed, in no acute distress, calm and relaxed, obese, , woman HEAD: atraumatic, normocep halic EYES: [...] extremities unremark able, no clubbing, cyanosis or edema, Pain and decreased range of motion right ankle LYMPH NODES: no enlarged lymph no tanya,spleen normal RECTAL EXAM: not examined PSYCH: alert, oriented ORAL CAVITY: normal, unremarkable Consultation Request Notes Referral Date Referring Provider Referred Provider Not josef 11/25/2024 Taisha [facility], Orthopedic Surgeons Evaluate and Treat Right ankle pain
[2025-03-25 09:03] LABS: MANUAL DIFF FLAG NO
--- OUTSIDE RECORDS SUMMARY | 2025-03-25 09:17 | XMS_ITS | Patient Health Record ---
Author Organization Corey Sumner III, MD Address [address] [place] [address] Care Team Providers Care Juice Tester Name Role Phone Dr. Corey Sumner III Primary Care Provider Allergies Allergen (clinical drug ingredient) Drug/Non Drug Allergy documented on EMR Reaction Allergy Type Onset Date Status acetaminophen / oxycodone Percocet vomiting Drug Allergy Active codeine Codeine Sulfate vomiting Drug Allergy A ctive Results Component Value Reference Range Notes Uric Acid Reviewed date:11/25/2024 02:19:10 PM Interpretation: Performing Lab:[facility], [address] [place] [place] [phone] Notes/Report: Uric Acid 7.4 2.4-5.7 mg/dL Lipid Panel Reviewed date:11/25/2024 02:19:10 PM Interpretation: Performing Lab:[facility], [address] [place] [phone] Notes/Report: Triglycerides 126 <150 mg/dL Desirable Triglyceride: [...] Random Reviewed date:11/25/2024 02:19:10 PM Interpretation: Performing Lab:[facility], [address] [place] [phone] Notes/Report: Creatinine Urine 98.90 Microalbumin Urine 41.0 Microalbum/Creatinine Ratio Ur 41.4 <30 ug/mg cr Albumin/Creatinine Ratio Reference Ranges: Normal: < 30 ug/mg creatinine Microalbuminuria: 30 - 300 ug/mg creatinine Clinical Albuminuria: > 300 ug/mg creatinine Hemoglobin A1c Reviewed date:11/18/2024 12:54:05 PM Interpretation: Performing Lab:[facility], [address] [place] [phone] Notes/Report: Hemoglobin A1c % 7.2 <6.0 % [...] average glucose, using the formula of the B3W-Vjliucq Average Glucose study (ADAG), Diabetes Care, Vol.31,#8, Jan. 2007 XR elbow RT min 3V Reviewed date:11/18/2024 12:54:05 PM Interpretation: Performing Lab: Notes/Report: [address] [address] XRay Report Signed Patient: Pam Lowery MR#: [id number] : 1950 Acct:[id number] Age/Sex: 73 / F ADM Date: 07/15/24 Loc: [facility] Attending Dr: Corey Sumner MD Ordering Physician: Corey Sumner MD Date of Service: 07/15/24 Procedure(s): XR elbow RT min 3V Accession Number(s): [id number] cc: Corey Sumner MD CLINICAL HISTORY: QUESTIONING [...] 07/16/24 1300 DD/ 1259 TD/TT: 07/16/24 125 Shipping & Receiving Lead: [address] [address] XRay Report Signed Patient: Pam Lowery MR#: [id number] : 1950 Acct:[id number] Age/Sex: 73 / F ADM Date: 07/15/24 Loc: HO.XRAY Attending Dr: Corey Sumner MD Ordering Physician: Corey Sumner MD Date of Service: 07/15/24 Procedure(s): XR elb ow RT min 3V Accession Number(s): [id number] cc: Corey Sumner MD CLINICAL HISTORY: QUESTIONING [...] 07/16/24 1300 DD/ 1259 TD/TT: 07/16/24 125 Shipping & Receiving Lead: XR ankle RT 2V (Not yet revi ewed by provider) Interpretation: Performing Lab: Notes/Report: [address] [address] XRay Report Signed Patient: Pam Lowery MR#: [id number] : 1950 Acct:[id number] Age/Sex: 74 / F ADM Date: 11/25/24 Loc: [facility] Attending Dr: Corey Sumner MD Ordering Physician: Corey Sumner MD Date of Service: 11/25/24 Procedure(s): XR ankle RT 2V Accession Number(s): [id number] cc: Corey Sumner MD EXAMINATION: XR ANKLE [...] Corey Pham MD 11/26/2024 09:53 AM EDT Dictated By: Corey Pham MD Signed By: <Electronically signed by Corey Pham MD in OV> 11/26/24 0953 DD/ 1525 TD/TT: 11/25/24 1530 Shipping & Receiving Lead: [place] [address] XRay Report Signed Patient: Pam Lowery MR#: [id number] : 1950 Acct:[id number] Age/Sex: 74 / F ADM Date: 11/25/24 Loc: [facility] Attending Dr: Corey Sumner MD Ordering Physician: Corey Sumner MD Date of Service: 11/25/24 Procedure(s): XR ank le RT 2V Accession Number(s): [id number] cc: Corey Sumner MD EXAMINATION: XR ANKL [...] swelling. 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 Electronically everardo d by: Corey Pham MD 11/26/2024 09:53 AM EDT RP Dictated By: Corey hPam MD Signed By: <Electronically signed by Corey Pham MD in OV> 11/26/24 0953 DD/ 152 TD/TT: 11/25/24 1530 Shipping & Receiving Lead: Diabetic Eye Exam Reviewed date:06/26/2024 03:57:09 PM Interpretation:undefined Performing Lab: Notes/Report: undefined Complete Blood Count Auto Di ff Reviewed date:06/23/2024 05:47:28 PM Interpretation: Performing Lab:[facility], [address] [place] [phone] Notes/Report: White Blood Count 10.8 4.8-10.8 X10*3/uL [...] 0.0-0.2 /100WBC Neutrophils Absolute Auto 7.4 2.0-8.3 x10*3/uL Imm Gran Abs Auto 0.15 0.00-0.03 X10*3/uL Lymphocytes Absolute Auto 2.2 1.2-4.9 X10*3/uL Monocytes Absolute Auto 0.8 0.1-1.2 X10*3/uL Eosinophils Absolute Auto 0.3 0.0-0.4 X10*3/uL Basophils Absolute Auto 0.1 0.0-0.2 X10*3/uL NRBC Abs Auto 0.000 0.0-0.012 X10*3/uL Comprehensive [place]. Panel Fa st Reviewed date:06/23/2024 05:47:28 PM Interpretation: Performing Lab:[facility], [address] [place] [phone] Notes/Report: Sodium 143 135-145 mmol/L Potassium 4.5 [...] Panel Reviewed date:06/23/2024 05:47:28 PM Interpretation: Performing Lab:[facility], [address] [place] [phone] Notes/Report: Triglycerides 97 <150 mg/dL Desirable Triglyceride: [...] Random Reviewed date:06/23/2024 05:47:28 PM Interpretation: Performing Lab:[address] [address] Notes/Report: Creatinine Urine 143.28 Microalbumin Urine 47.0 Microalbum/Creatinine Ratio Ur 32.8 <30 ug/mg cr Albumin/Creatinine Ratio Reference Ranges: Normal: < 30 ug/mg creatinine Microalbuminuria: 30 - 300 ug/mg creatinine Clinical Albuminuria: > 300 ug/mg creatinine Hemoglobin A1c Reviewed date:06/23/2024 05:47:28 PM Interpretation: Performing Lab:[address] [address] Notes/Report: Hemoglobin A1c % 7.5 <6.0 % [...] average glucose, using the formula of the F0B-Lfrgjwl Average Glucose study (ADAG), Diabetes Care, Vol.31,#8, Jan. 2007 Complete Blood Count Auto Di ff Reviewed date:11/18/2024 12:54:05 PM Interpretation: Performing Lab:[address] [address] Notes/Report: White Blood Count 9.4 4.8-10.8 X10*3/uL Red Blood Count 4.82 4.20-5.50 X10*6/uL Hemoglobin 13.1 12.0-16.0 g/dl Hematocrit 41.7 37.0-47.0 % Mean Corpuscular Volume 86.5 80.0-98.0 fL Mean Corpuscular Hemoglobin 27.2 27.0-33.0 pg Mean Corpuscular HGB Conc 31.4 31.0-35.0 g/dl Red Cell Distribution Width 13.6 11.0-16.0 % Platelet Count 321 160-400 X10*3/uL Mean Platelet Volume 9.1 9.4-12.3 fL Neutrophils Percent Auto 64.7 45-73 % Imm Gran Pct Auto 1.2 0.0-0.4 % Lymphocytes Percent Auto 23.0 20-40 % Monocytes Percent Auto 7.0 2-11 % Eosinophils Percent Auto 3.2 0-4 % Basophils Percent Auto 0.9 0-2 % NRBC Pct Auto 0.0 0.0-0.2 /100WBC Neutrophils Absolute Auto 6.1 2.0-8.3 x10*3/uL Imm Gran Abs Auto 0.11 0.00-0.03 X10*3/uL Lymphocytes Absolute Auto 2.2 1.2-4.9 X10*3/uL Monocytes Absolute Auto 0.7 0.1-1.2 X10*3/uL Eosinophils Absolute Auto 0.3 0.0-0.4 X10*3/uL Basophils Absolute Auto 0.1 0.0-0.2 X10*3/uL NRBC Abs Auto 0.000 0.0-0.012 X10*3/uL Comprehensive [place]. Panel Fa st Reviewed date:11/25/2024 02:19:10 PM Interpretation: Performing Lab:[facility], [address] [place] [address] Notes/Report: Sodium 141 135-145 mmol/L Potassium 4.5 3.3-5.1 mmol/L Chloride 104 96-108 mmol/L Carbon Dioxide 27 22-29 mmol/L Anion Gap 15 12-20 Blood Urea Nitrogen 27 9-16 mg/dL Creatinine 1.10 0.5-1.4 mg/dL Estimated Glomerular Filt Rate 48 Chronic Kidney Disease: Estimated GFR < 60 mL/min/1.73m2 Severe Kidney Disease: Estimated GFR < 15 mL/min/1.73m2 Glucose Fasting 149 60-99 mg/dL A fasting glucose of 126 mg/dl or greater on more than one occasion is considered diagnostic of diabetes. Calcium 10.1 8.4-10.2 mg/dL Bilirubin Total 0.3 0.0-1.0 mg/dL Aspartate Amino Transferase 20 5-31 U/L Alanine Aminotransferase 19 0-31 U/L Total Protein 7.5 6.5-8.0 g/dL Albumin Level 4.4 3.5-5.0 g/dL Alkaline Phosphatase 77 39-117 U/L Reason For Referral Reason Consult and Treat Right Elbow Pain Diagnosis 1 Elbow pain, right (M 25.521) Referral Organization Corey Sumner III, MD Referring Provider First Name Corey Referring Provider Last Name Taisha Referring Provider Speciality Internal [facility] Referred Provider [facility], [facility] Referred Provider Specialty Orthopedic S urgery General Notes 05/18/2024 11:26:23 AM > Referral and progress note faxed., Andrew 06/11/2024 02:21:24 PM > Refaxed referral as they did not receive the referral. patient was called and notified. Patient stated that she does not want to go to [facility] as it is hard to get ahold of, patient would like for the referral to be closed. Referral Priority Routine Reason Evaluate and Treat Right ankle pain Diagnosis 1 Right ankle pain (M2 5.571) Referral Organization Corey Sumner III, MD Referring Provider First Name Corey Referring Provider Last Name Taisha Referring Provider Speciality Internal [facility] Referred Provider [facility], [facility] Referred Provider Specialty Orthopedic S urgery General Notes 11/30/2024 09:43:51 AM > Referral faxed with progress note and Xr of Right Ankle, D01/05/2025 10:30:34 AM > Spoke with [facility] Ortho stated the patient would have to be referred to a foot/ankle specialist they do not treat there. patient was contacted., Andrew 01/08/2025 02:42:45 PM > Patient returned call from Dr. Sumner office stated she does not want to be seen by [facility] at this time. patient was referred to an urgent ortho clinic if she is experiencing pain and would like immediate care. referral is being closed at this time. Referral Priority Routine Medications Medication SIG (Take, [...] a day 01/11/2022 Active Trulicity 1.5 MG/0.5ML 0.5ml once a week Subcutaneous weekly Active metFORMIN HCl 500 MG TAKE 2 TABLETS BY MOUTH TWICE DAILY Active Aspirin 325 MG 1 tablet Orally Once a day Active hydroCHLOROthiazide 25 MG TAKE 1 TABLET BY MOUTH EVERY DAY Active Simvastatin 20 MG TAKE 1 TABLET BY COLBY TH EVERY DAY Active Lisinopril 40 MG TAKE 1 TABLET BY COLBY TH EVERY DAY Active Albuterol Sulfate HFA 108 (9 0 Base) MCG/ACT 2 puffs as needed Inhalation four times a day prn wheezing 02/09/2019 Active Alendronate Sodium 70 MG 1 tablet 30 min utes before the first food, beverage or medicine of the day with plain water Orally Active Vitamin E 400 UNIT 1 capsule Orally Onc e a day Active Montelukast Sodium 10 MG TAKE 1 TABLET B Y MOUTH EVERY EVENING Active Immunizations Vaccine Route Administration Date Status Comme nts Zostavax Unknown 01/07/2015 Administered Influenza-iiv4 p-free high dose Unknown 04/18/2015 Admi nistered Influenza no Preserv 3 and > Unknown 05/14/2016 Adminis tered Influenza High Dose Quadrivalent Unknown 05/11/2014 Adm inistered Fluzone High-Dose (HD-IIV3) Unknown 05/11/2014 Administ ered Fluzone High-Dose (HD-IIV3) Unknown 04/18/2015 Administ ered Social History Tobacco Use: Social History Observation [...] Problem Status W/U Status Risk Notes Problem 075771660084226 Obesity (BMI 30.0-34.9) (E66.9) Active confirmed He has gained 2 pounds. Her body mass index is 35. We discussed diet andd nutrition. We made a plan to lose weight at a rate of one half of a pound per week. Problem 942296245 Mixed hyperlipidemia (E78.2) Active confirmed Her lipids are currently stable and no change in her regimen was necessary. Problem 70005821 Essential hypertension (I10) Active confirmed Her blood pressure is currently stable and no change in her regimen was made. I recommended aggressive weight loss and sodium restriction. Problem 08340947 Nephrolithiasis (N20.0) Active confirmed She has had no renal colic. In the last year. She will notify me if this happens. Problem 324590053 Raynauds disease without gangrene (I73.00) Active confirmed She has had only a couple of episodes and no tissue gangrene. She was advised to keep her hands warm as much as possible and to advise me if anything changes for the worse. Problem Ankle pain (257968835) Ankle pain (M25.579) Active confirmed I have ordered an x-ray of the ankle which was broken many years ago and referred her to orthopedics for evaluation and management. Problem Arthralgia of the upper arm (638622145) Right elbow pain (M25.521) Active confirmed The right elbow was normal to examination today. The history sounds like an episode of gout. She was instructed to come to the office at once if it recurs. A uric acid level has been ordered. There was no sign of abnormality in the elbow today. Problem 47408562 Functional heart murmur (R01.0) Active confirmed She has had no cardiac symptoms since her last visit. She's had no shortness of breath or chest pain. She will report these to me at once if they occur. Problem 102419387 Controlled type 2 diabetes mellitus without complication, without long-term current use of insulin (E11.9) Active confirmed Her diabetes is stable. No change in medications was necessary I recommended adherence to a diabetic diet calories aggressive weight loss. Problem 684909316 Moderate asthma, unspecified whether complicated, unspecified whether persistent (J45.909) Active confirmed She has had no attacks of asthma recently. He has had no flareups of allergies. Her breathing was within normal limits with good air movement today. Mild occasional inspiratory wheezing was noted today in the right lung. Vital Signs Heart Rate 84 /min 11/25/2024 Temperature 98.9 degrees Fahrenheit 11/25/2024 Blood pressure diastolic 78 mm Hg 11/25/2024 Height 63 in 11/25/2024 Blood pressure systolic 136 mm Hg 11/25/2024 Weight 198 lbs 11/25/2024 BMI 35.07 kg/m2 11/25/2024 Encounters Encounter Location Date Provider Diagnosis Corey Sumner III, MD [address] [place] [address] [place] [id number] 07/01/2024 Corey Sumner Right elbow pain M25 .521 ; Controlled type 2 diabetes mellitus without complication, without long-term current use of insulin E11.9 ; Obesity (BMI 30.0-34.9) E66.9 ; Mixed hyperlipidemia E78.2 ; Essential hypertension I10 and Moderate asthma, unspecified whether complicated, unspecified whether persistent J45.909 Corey Sumner III, MD [address] [place] [address] [place] [id number] 11/25/2024 Corey Sumner Controlled type 2 diabetes mellitus without complication, without long-term current use of insulin E11.9 ; Mixed hyperlipidemia E78.2 ; Obesity (BMI 30.0-34.9) E66.9 ; Ankle pain M25.579 ; Nephrolithiasis N20.0 and Moderate asthma, unspecified whether complicated, unspecified whether persistent J45.909 Corey Sumner III, MD [address] [place] [address] [place] [id number] 05/18/2024 Corey Sumner III, MD [address] [place] [address] [place] [id number] 10/26/2024 Corey Sumner Controlled type 2 diabetes mellitus [...] her lifestyle including exercise and weight loss. 11/25/2024 Mixed hyperlipidemia (ICD-10 - E78.2) Her lipids are currently stable and no change in her regimen was necessary. 11/25/2024 Controlled type 2 diabetes mellitus without complication, without long-term current use of insulin (ICD-10 - E11.9) Her diabetes is stable. No change in medications was necessary I recommended adherence to a diabetic diet calories aggressive weight loss. 10/26/2024 Controlled type 2 diabetes mellitus without [...] to lifestyle that could cause weight loss. 11/25/2024 Obesity (BMI 30.0-34.9) (ICD-10 - E66.9) He has gained 2 pounds. Her body mass index is 35. We discussed diet andd nutrition. We made a plan to lose weight at a rate of one half of a pound per week. 07/01/2024 Mixed hyperlipidemia (ICD-10 - E78.2) Her fasting lipid profile shows good control of her lipids which are in the normal range. No change in her regimen as needed. 11/25/2024 Ankle pain (ICD-10 - M25.579) I have ordered an x-ray of the ankle which was broken many years ago and referred her to orthopedics for evaluation and management. 07/01/2024 Essential hypertension (ICD-10 - I10) Her blood pressure is currently stable and no change in her regimen was made. I recommended aggressive weight loss and sodium restriction. 11/25/2024 Nephrolithiasis (ICD-10 - N20.0) She has [...] was noted today in the right lung. 11/25/2024 Moderate asthma, unspecified whether complicated, unspecified [...] C) 10/16/2023 PROFILE, FASTING (COMPREHENSIVE METABOLI C) 11/25/2024 PROFILE, FASTING (COMPREHENSIVE METABOLI C) 08/21/2023 CBC w DIFF 11/25/2024 CBC w DIFF 08/21/2023 MAMMOGRAM DIGITAL BILATERAL SCREEN 03/13 MAMMOGRAM DIGITAL BILATERAL SCREEN 02/21 CBC WITH AUTO DIFF 07/01/2024 CBC WITH AUTO DIFF 02/26/2024 CBC WITH AUTO DIFF 12/18/2023 CBC WITH AUTO DIFF 10/16/2023 Lipid Panel 08/21/2023 Lipid Panel 02/26/2024 Lipid Panel 12/18/2023 Lipid Panel 10/16/2023 Lipid Panel 11/25/2024 Microalbumin, Random 02/26/2024 Microalbumin, Random 12/18/2023 Microalbumin, Random 10/16/2023 XR ankle RT 2V 11/25/2024 Hemoglobin A1c 02/26/2024 Hemoglobin A1c 12/18/2023 Hemoglobin A1c 11/25/2024 Hemoglobin A1c 10/16/2023 Next Appt Details Provider Name:Corey Jackson Taisha , 03/31/2025 02:30:00 PM, [address] [place] [address] [address], [place], [address], Provider Name:Corey Castellanorne , 11/29/2025 02:00:00 PM, [address] [place] [address] [address], [place], [address], Insurance Providers Payer Name Payer Address Payer Phone Subscriber Number Group Number Insured Name Patient Relationship to Insured Coverage Start Date Coverage End Date MEDICARE NGS [address] [place] [address] [phone] [id number] Pam Lowery Self - patient is the insured [facility] [address] [place], [place] [id number] Pam Lowery Self - patient is the insured Medical (General) History Medical History History ICD Code Arthritis M19.90 Nephrolithiasis N20.0 functional heart murmur since childhood hyperlipidemia raynaud's disease adult-onset diabetes mellitus, age 57 asthma, Dr. Deon Pizano, [facility] obesity history of endocervical polyp, Dr. Duffy 1992. Fracture right ankle Surgical History Surgery Date(Month/Year) No history both eyelids lift 11/2018 endocervical polypectomy, [facility], Dr. Duffy 10/2017 right ankle fracture 1993 rotator cuff tear repair/ right shoulder 11/2008 Hospitalization History Reason Date(Month/Year) No history injured kidney 2016
[2025-03-25 09:33] LABS: Hematocrit 38.7 % (37.0-47.0); Hemoglobin 12.7 g/dl (12.0-16.0); Imm Gran Abs Auto 0.10 X10*3/uL (0.00-0.03); Imm Gran Pct Auto 1.0 % (0.0-0.4); Lymphocytes Absolute Auto 2.1 X10*3/uL (1.2-4.9); Mean Corpuscular HGB Conc 32.8 g/dl (31.0-35.0); Mean Corpuscular Hemoglobin 27.8 pg (27.0-33.0); Mean Corpuscular Volume 84.7 fL (80.0-98.0); NRBC Abs Auto 0.000 X10*3/uL (0.0-0.012); NRBC Pct Auto 0.0 /100WBC (0.0-0.2); Platelet Count 326 X10*3/uL (160-400); Red Blood Count 4.57 X10*6/uL (4.20-5.50); White Blood Count 9.6 X10*3/uL (4.8-10.8)
[2025-03-25 10:01] LABS: Alanine Aminotransferase 20 U/L (0-31); Albumin Level 4.3 g/dL (3.5-5.0); Alkaline Phosphatase 84 U/L (39-117); Anion Gap 12 (12-20); Aspartate Amino Transferase 23 U/L (5-31); Blood Urea Nitrogen 30 mg/dL (9-16); Calcium 10.2 mg/dL (8.4-10.2); Carbon Dioxide 30 mmol/L (22-29); Chloride 105 mmol/L (96-108); Cholesterol 178 mg/dL (<200); Estimated Glomerular Filt Rate 48; HDL Cholesterol 56 mg/dL (>40); Potassium 4.6 mmol/L (3.3-5.1); Sodium 142 mmol/L (135-145); Total Protein 7.0 g/dL (6.5-8.0); Triglycerides 144 mg/dL (<150)
== END 2025-03-25 08:48 | disposition home or self-care (01) ==
LOC: HO.LAB 08:47
PROVIDERS: PCP Internal Medicine Medical Oncology; Visit Provider Internal Medicine Medical Oncology
DX: E11.9 Type 2 diabetes mellitus without complications (principal); E78.2 Mixed hyperlipidemia; E66.9 Obesity, unspecified
CPT/HCPCS: 36415; 80053; 80061; 83036; 85025